=== PATIENT | male | born 1975 | race Caucasian/White ===

== ENCOUNTER → 2023-04-15 | Outpatient (CLI) | payer BC ==
[2023-04-15 12:40] LABS: CHOLESTEROL 159 mg/dL (<200); HDL CHOLESTEROL 57 mg/dL (29-71); LDL DIRECT 84 mg/dL (0-99); TRIGLYCERIDES 210 mg/dL (30-200)
== END | disposition home or self-care (01) ==
LOC: SHCH 10:40
PROVIDERS: ATTEND Student in an Organized Health Care Education/Training Program
DX: E78.5 Hyperlipidemia, unspecified (principal)
CPT/HCPCS: 36415; 80061; 93306

== ENCOUNTER → 2023-08-15 | Outpatient (CLI) | payer BC ==
[~2023-08-15] MED LIST: IOHEXOL 350 MG/ML 100ML INFUS..BTL IV ONE; METOPROLOL TARTRATE 1 MG/ML 5ML VIAL IV ONE
== END | disposition home or self-care (01) ==
LOC: RAH 07:40
PROVIDERS: ATTEND Student in an Organized Health Care Education/Training Program
DX: I50.9 Heart failure, unspecified (principal)
CPT/HCPCS: 75574; J3490; Q9967

== ENCOUNTER 2023-10-29 06:04 | Day surgery (SDC) | payer BC ==
[2023-10-25 08:44] LABS: BASOPHILS # (AUTO) 0.02 K/uL (0.00-0.20); BASOPHILS % (AUTO) 0.4 % (0.0-5.0); EOSINOPHILS % (AUTO) 5.9 % (0.0-8.0); HEMATOCRIT 44.8 % (42-54); IMMATURE GRANULOCYTE ABSOLUTE 0.01 K/uL (0-1); LYMPHOCYTES # (AUTO) 1.5 K/uL (1.0-4.8); LYMPHOCYTES % (AUTO) 30.2 % (21.0-51.0); MEAN CORPUSCULAR HEMOGLOBIN 30.5 pg (27.0-33.0); MEAN CORPUSCULAR VOLUME 92.4 fL (79-99); MONOCYTES # (AUTO) 0.6 K/uL (0.1-1.0); MONOCYTES % (AUTO) 11.9 % (3.0-13.0); NEUTROPHILS # (AUTO) 2.6 K/uL (1.8-7.7); NEUTROPHILS % (AUTO) 51.4 % (40.0-77.0); PLATELET COUNT (AUTO) 191 K/uL (130-400); RED BLOOD CELL COUNT(AUTO) 4.85 MIL/uL (4.50-6.20); RED CELL DISTRIBUTION WIDTH 12.9 % (11.0-15.5); WHITE BLOOD COUNT (AUTO) 5.1 K/uL (4.8-10.8)
[2023-10-25 08:58] LABS: CREATININE 0.9 mg/dL (0.5-1.3); POTASSIUM 4.4 mmol/L (3.5-5.1)
[2023-10-25 09:02] LABS: INR <= 0.93 (0.85-1.15); PROTHROMBIN TIME 10.8 SEC (9.6-11.6)
[2023-10-25 09:04] LABS: PARTIAL THROMBOPLASTIN TIME 28.2 SEC (26.3-35.5)
[2023-10-25 09:06] VITALS: BP 128/82; PULSE 69; RESP 18
[2023-10-25 09:19] LABS: B-TYPE NATRIURETIC PEPTIDE < 5 pg/mL (0-100)
[~2023-10-29] VITALS: Ht 180.3 cm; Wt 88.4 kg
[2023-10-29] VITALS (10 sets, daily range): BP systolic 103–144; BP diastolic 62–88; PULSE 80–93; RESP 15–19
[~2023-10-29 06:04] MED LIST changes: +ASPI-1005 PO; +EMPA25TA PO; +ICOS1CAP PO; +INSU300I SQ; -IOHEXOL 350 MG/ML 100ML INFUS..BTL IV ONE; -METOPROLOL TARTRATE 1 MG/ML 5ML VIAL IV ONE; +ROSU40TA70 PO; +SACU1TAB PO; +TIRZ10PE SQ; +mvi PO
[2023-10-29] MEDS: 0.9%NACL 1000ML 1,000 ML IV ONE (06:59)
[2023-10-29] MEDS ORDERED: VERAPAMIL HCL 2.5 MG/ML VIAL ONE (07:28)
[2023-10-29] MEDS ORDERED: LIDOCAINE HCL 400MG/20ML VIAL ONE (07:28)
[2023-10-29] MEDS ORDERED: HEPARIN 10,000 UNIT/10ML (1,000 UNIT/ML) VIAL ONE (07:28)
[2023-10-29] MEDS ORDERED: MIDAZOLAM HCL 1 MG/ML 2ML VIAL ONE ×3 (07:28→08:05)
[2023-10-29] MEDS ORDERED: FENTANYL CITRATE PF 50 MCG/1 ML 2ML VIAL ONE (07:28)
[2023-10-29] MEDS ORDERED: NITROGLYCERIN 50MG VIAL ONE (07:28)
[2023-10-29] MEDS ORDERED: IOHEXOL-350 75 ML VIAL IV ONE (07:30)
[2023-10-29] MEDS ORDERED: IOHEXOL-350 50ML VIAL IV ONE (08:10)
[2023-10-29] MEDS ORDERED: DEXTROSE 50%-WATER 50 ML DISP.SYRIN IV PRN (09:00)
[2023-10-29] MEDS ORDERED: 0.9% NACL 500ML IV.SOLN 500 ML IV SCH (09:00)
[2023-10-29] MEDS ORDERED: GLUCAGON 1MG KIT 1 MG ML IM PRN (09:00)
== END 2023-10-29 13:10 | disposition home or self-care (01) ==
LOC: DAH 06:04
PROVIDERS: ATTEND Student in an Organized Health Care Education/Training Program
DX: I25.10 Atherosclerotic heart disease of native coronary artery without angina pectoris (principal); I11.0 Hypertensive heart disease with heart failure; I50.32 Chronic diastolic (congestive) heart failure; E11.8 Type 2 diabetes mellitus with unspecified complications; E78.5 Hyperlipidemia, unspecified; Z82.49 Family history of ischemic heart disease and other diseases of the circulatory system; Z83.3 Family history of diabetes mellitus; Z79.82 Long term (current) use of aspirin; Z79.01 Long term (current) use of anticoagulants
CPT/HCPCS: 80048; 83880; 85025; 85610; 85730; 36415; 71045; 93005; 93458; 82948; C1769; C1894; A4649; J3010; J3490 ×3; J7030; J1644 ×2; J2250 ×3; Q9967 ×2; A4215; A4222; A4221; A4663; A4216; A4606; Q9965; A4223 ×3; 96360; 96361; 99156; 99157

== ENCOUNTER 2024-04-15 11:26 | Inpatient (IN) | payer BC ==
[~2024-04-15] VITALS: Ht 205.7 cm; Wt 86.2 kg
[~2024-04-15 11:26] MED LIST changes: -ROSU40TA70 PO; +ROSU40TA88 PO
[2024-04-15 11:30] VITALS: BP 151/112; PULSE 89; RESP 18; TEMP 98.9
[2024-04-15 11:45] VITALS: O2SAT 98
--- NOTE | 2024-04-15 11:45 | NUR ---
PT ARRIVED FROM [facility] VIA STRECTHER BY PARAMEDICS. PT AAOX3. NO DISTRESS NOTED. VITALS CHARTED. NO CHEST PAIN AT THE MOMENT. VILATERAL AC 18 G IV PRESENT, RUNNING HEPARIN DRIP AT 11UNITS/KG/HR. DR. HUNT HAS BEEN MADE AWARE OF PTS ARRIVAL. NO ORDERS PRESENT AT THIS TIME. PENDING CALL BACK FROM
[2024-04-15] MEDS: metoPROLOL tartRATE 25 MG TAB PO STA (12:52)
[2024-04-15 13:00] LABS: BASOPHILS # (AUTO) 0.01 K/uL (0.00-0.20); BASOPHILS % (AUTO) 0.2 % (0.0-5.0); EOSINOPHILS # (AUTO) 0.05 K/uL (0.00-0.70); EOSINOPHILS % (AUTO) 0.9 % (0.0-8.0); HEMATOCRIT 42.1 % (42-54); IMMATURE GRANULOCYTE ABSOLUTE 0.02 K/uL (0-1); LYMPHOCYTES # (AUTO) 1.4 K/uL (1.0-4.8); LYMPHOCYTES % (AUTO) 24.9 % (21.0-51.0); MEAN CORPUSCULAR HEMOGLOBIN 31.6 pg (27.0-33.0); MEAN CORPUSCULAR VOLUME 92.9 fL (79-99); MONOCYTES # (AUTO) 0.4 K/uL (0.1-1.0); MONOCYTES % (AUTO) 7.5 % (3.0-13.0); NEUTROPHILS # (AUTO) 3.6 K/uL (1.8-7.7); NEUTROPHILS % (AUTO) 66.1 % (40.0-77.0); PLATELET COUNT (AUTO) 160 K/uL (130-400); RED BLOOD CELL COUNT(AUTO) 4.53 MIL/uL (4.50-6.20); RED CELL DISTRIBUTION WIDTH 13.1 % (11.0-15.5); WHITE BLOOD COUNT (AUTO) 5.5 K/uL (4.8-10.8)
[2024-04-15 13:09] LABS: INR 1.02 (0.85-1.15)
[2024-04-15 13:11] LABS: PARTIAL THROMBOPLASTIN TIME 47.7 SEC (26.3-35.5)
[2024-04-15 13:15] LABS: ALBUMIN 3.5 g/dL (3.5-5.0); BILIRUBIN,TOTAL 0.7 mg/dL (0.2-1.0); CREATININE 0.8 mg/dL (0.5-1.3); POTASSIUM 3.7 mmol/L (3.5-5.1); TOTAL PROTEIN, SERUM 6.9 g/dL (6.0-8.3)
--- NOTE | 2024-04-15 13:35 | NUR ---
dr. brito made aware of consult, no new orders at this time.
[2024-04-15] MEDS ORDERED: MAGNESIUM 2GM PREMIX 50ML 50 ML IV SCH (14:00)
[2024-04-15] MEDS ORDERED: HEParin 5,000 UNIT VIAL IV PRN (14:00)
[2024-04-15] MEDS ORDERED: hydrALAZine 20MG/ML VIAL IV PRN (14:00)
[2024-04-15] MEDS ORDERED: PoTASSium chl 10% ELIXIR 20MEQ 20 MEQ/15 ML UDCUP PO PRN (14:00)
[2024-04-15] MEDS ORDERED: PoTASSium chloRIDE 20MEQ/100ML 100 ML IV PRN (14:00)
[2024-04-15] MEDS: ASPIRIN 81MG CHEW TAB PO SCH (14:14)
[2024-04-15] MEDS: PoTASSium chloRIDE 20MEQ ER 20 MEQ ERTAB PO PRN (14:14)
[2024-04-15] MEDS: HEParin 25,000 UNITS/250ML D5W 250 ML IV SCH (14:14)
[2024-04-15] MEDS: cloPIDOgrel 75MG TAB PO SCH (14:15)
[2024-04-15] MEDS ORDERED: IOHEXOL 350 MG/ML 100ML INFUS..BTL IV ONE (14:15)
--- NOTE | 2024-04-15 14:18 | NUR ---
consent for ct angio collected at this time. consent in chart. all questions answered.
[2024-04-15 14:20] LABS: HEMOGLOBIN A1C 6.3 % (4.0-6.0)
[2024-04-15 14:26] LABS: THYROID STIMULATING HORMONE 0.78 uIU/mL (0.36-3.74)
[2024-04-15] MEDS ORDERED: metoPROLOL tartRATE 1 MG/ML 5ML VIAL IV ONE (14:36)
[2024-04-15] MEDS ORDERED: ALBUMIN (HUMAN) 25% 50 ML IV ONE (14:50)
--- NOTE | 2024-04-15 15:21 | HMCIMG ---
CT CARDIAC ANGIO W/CONT. CCTA REASON: CAD, RCA anomolous takeoff COMPARISON: None TECHNIQUE: Images are obtained through the heart in the axial plane before and during bolus IV contrast infusion, 100 cc Omnipaque 350. 2-D and 3-D multiplanar reconstruction images were then performed. The injection had to be repeated once due to motion artifact on the first sequence, total contrast volume was 200 cc. FINDINGS: This dictation is for the noncardiac findings only. Cardiac and coronary artery findings are reported separately. Visualized portions of the lungs are clear. There is normal-appearing pulmonary interstitium. There is no hilar or mediastinal lymphadenopathy. Chest wall structures appear unremarkable. IMPRESSION: 1. Unremarkable noncardiac portions of CT cardiac angiography.
[2024-04-15 16:00] VITALS: BP 121/76; PULSE 83; RESP 20; TEMP 98
--- NOTE | 2024-04-15 16:00 | NUR ---
PT ASKED TO BRING HOME MEDICATIONS FOR RECONCILIATION.
[2024-04-15] MEDS: INSULIN humuLIN R 100 UNIT/ML 3ML SQ SCH (16:30)
--- NOTE | 2024-04-15 16:53 | HP ---
[facility] HISTORY AND PHYSICAL Date of Service: Apr 15, 2024 Time of Service: 16:46 HISTORY OF PRESENT ILLNESS: Date of service: 04/15/2024, patient was seen in room 227 49-year-old male with history of type 2 diabetes mellitus, hypertension, hyperlipidemia, underlying coronary artery disease who presented as a transfer from [facility]. Patient had initially presented to [facility] and [facility] with complaints of severe chest pain 8/10 in intensity. In the [facility], patient was found to have STEMI involving the inferior lead. He was given aspirin and TNK in the emergency room. He was subsequently transferred to [facility] yesterday for further management of STEMI. Patient states that he subsequently underwent cardiac catheterization by Dr. Casanova. Patient denies undergoing angioplasty or stenting during cardiac cath and RCA could not be engaged during the procedure. Patient has been transferred to [facility] for coronary CT angiogram to further delineate the RCA an atomy. Patient has previously undergone cardiac catheterization in October/2023 where he was found to have high anterior takeoff of the RCA with 30-40 % proximal RCA stenosis and 40-50% distal RCA stenosis and 50-60% stenosis of the PDA. Patient on presentation to [facility] was noted to be afebrile and hemodynamically stable. Patient denies active chest pain. Plan is to obtain cardiac CT angio later today. We will follow up with this patient post CT. REVIEW OF SYSTEMS CONSTITUTIONAL: Denies fevers, chills, or night sweats. No unintentional weight loss reported. NEUROLOGICAL: Denies headache, amaurosis fugax, motor weakness, sensory deficit, vertigo/spinning sensation, gait abnormalities, or tremors. ENT: No hearing loss, otalgia, otorrhea, rhinitis, rhinorrhea, hoarseness, or sore throat. CARDIOVASCULAR: Denies any exertional angina, dyspnea on exertion, orthopnea, paroxysmal nocturnal dyspnea, palpitations, life-threatening arrhythmias, claudication. PULMONARY: Denies any shortness of breath, cough, phlegm/sputum, hemoptysis, pleuritic chest pain. SLEEP: Denies morning headaches, daytime somnolence or napping. Denies difficulty falling asleep, staying asleep, waking from sleep. Denies knowledge of snoring. GASTROINTESTINAL: Denies any type of dysphagia to either liquids or solids. Denies nausea, vomiting, pyrosis, early satiety, abdominal pain, diarrhea, constipation, or changes in stool consistency or caliber. Denies coffee-ground emesis, hematemesis, hematochezia, or melanotic stools. GENITOURINARY: Denies frequency, urgency, nocturia, hematuria or incontinence (Storage/Irritative symptoms.) Low urinary stream, straining to void, urinary intermittency or hesitancy, splitting of the voiding stream, terminal dribbling. ENDOCRINOLOGIC: Denies polyuria, polydipsia, polyphagia or heat/cold intolerances. HEMATOLOGIC: Denies thrombophilia/previous clots, or coagulopathy/bleeding disorders. ONCOLOGIC: Denies personal history of malignancy. DERMATOLOGIC: Denies rashes or pruritus. PSYCHIATRIC: Denies any suicidal or homicidal ideation. Denies hallucinations. 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 FAMILY HISTORY: Reports family history of premature coronary artery disease with father having VA at the age of 41 Allergies: Patient has allergic reaction to avocado, banana, clindamycin, latex, metformin, suxamethonium, Watermelon Coded Allergies: avocado (Unverified Allergy, Severe, edema of neck, 04/15/24) banana (Unverified Allergy, Severe, ANAPHYLAXIS, 04/15/24) clindamycin (Unverified Allergy, Severe, ANAPHYLAXIS, 04/15/24) latex (Unverified Allergy, Severe, ANAPHYLAXIS, 04/15/24) watermelon (Unverified Allergy, Severe, ANAPHYLAXIS, 04/15/24) metformin (Unverified Adverse Reaction, Unknown, loose stool, 04/15/24) Uncoded Allergies: suxamethonium (Adverse Reaction, Unknown, 10/25/23) PHYSICAL EXAM GENERAL APPEARANCE: The patient is awake, alert, and oriented, in no acute cardiopulmonary distress. NEUROLOGICAL: Cranial nerves II-XII grossly intact. Motor is 5/5 in bilateral upper and lower extremities proximal to distal. No sensory deficits. HEENT: Face is symmetric. Pupils are equal and reactive. Extraocular movements are intact. NECK: Supple. No JVD. No thyromegaly. No submental, submandibular, pre- /postauricular, occipital or supraclavicular lymphadenopathy. CHEST: Normal chest expansion. No Telemetry. LUNGS: Absence of any rales, rhonchi or any wheezing. CARDIOVASCULAR: Regular. S1 and S2 normal. No appreciable rubs, murmurs or gallops. ABDOMEN: Soft, nontender, and nondistended. There is no rebound, voluntary guarding, or rigidity. : Deferred. No [place]. EXTREMITIES: Non-edematous and not cyanotic. No clubbing. Good capillary refill. SKIN: No skin breakdown. Vital Sign (Last 24 Hours) 04/15/24 04/15/24 11:30 11:45 Temp 99.0 Pulse 89 Resp 18 B/P (MAP) 151/112 Pulse Ox 98 O2 Delivery Room Air* O2 Flow Rate 0 FiO2 21 LABS: Laboratory: Test 04/15/24 16:23 04/15/24 12:55 Range/Units Whole Blood Glucose 92 70-110 MG/DL White Blood Count 5.5 4.8-10.8 K/uL Red Blood Count 4.53 4.50-6.20 MIL/uL Hemoglobin 14.3 14.0-18.0 g/dL Hematocrit 42.1 42-54 % Mean Corpuscular Volume 92.9 79-99 fL Mean Corpuscular Hemoglobin 31.6 27.0-33.0 pg Mean Corpuscular Hemoglobin Concent 34.0 32.0-36.0 g/dL Red Cell Distribution Width 13.1 11.0-15.5 % Platelet Count 160 130-400 K/uL Mean Platelet Volume 8.9 7.5-10.5 fL Immature Granulocyte % (Auto) 0.4 0-1 % Neutrophils (%) (Auto) 66.1 40.0-77.0 % Lymphocytes (%) (Auto) 24.9 21.0-51.0 % Monocytes (%) (Auto) 7.5 3.0-13.0 % Eosinophils (%) (Auto) 0.9 0.0-8.0 % Basophils (%) (Auto) 0.2 0.0-5.0 % Neutrophils # (Auto) 3.6 1.8-7.7 K/uL Lymphocytes # (Auto) 1.4 1.0-4.8 K/uL Monocytes # (Auto) 0.4 0.1-1.0 K/uL Eosinophils # (Auto) 0.05 0.00-0.70 K/uL Basophils # (Auto) 0.01 0.00-0.20 K/uL Absolute Immature Granulocyte (auto 0.02 0-1 K/uL Nucleated Red Blood Cells 0.0 0.0-0.19 % Prothrombin Time 11.0 9.6-11.6 SEC Prothromb Time International Ratio 1.02 0.85-1.15 Activated Partial Thromboplast Time 47.7 H 26.3-35.5 SEC Sodium Level 133 L 136-145 mmol/L Potassium Level 3.7 3.5-5.1 mmol/L Chloride Level 101 101-111 mmol/L Carbon Dioxide Level 23 21-32 mmol/L Blood Urea Nitrogen 20 H 7-18 mg/dL Creatinine 0.8 0.5-1.3 mg/dL Glomerular Filtration Rate Calc 108 >90 mL/min Random Glucose 86 70-105 mg/dL Hemoglobin A1c 6.3 H 4.0-6.0 % Estimated Average Glucose (eAG) 134 H 70-126 mg/dL Total Calcium 8.5 8.5-10.1 mg/dL Magnesium Level 2.00 1.80-2.40 mg/dL Total Bilirubin 0.7 0.2-1.0 mg/dL Aspartate Amino Transf (AST/SGOT) 20 10-37 U/L Alanine Aminotransferase (ALT/SGPT) 30 12-78 U/L Alkaline Phosphatase 75 50-136 U/L Total Protein 6.9 6.0-8.3 g/dL Albumin 3.5 3.5-5.0 g/dL Triglycerides Level 108 30-200 mg/dL Cholesterol Level 152 <200 mg/dL LDL Cholesterol 73 0-99 mg/dL HDL Cholesterol 62 29-71 mg/dL Thyroid Stimulating Hormone (TSH) 0.78 0.36-3.74 uIU/mL Current Medications Medications (Trade) Dose Ordered Sig/Wes Route PRN Reason Start Time Stop Time Status Last Admin Dose Admin Aspirin (Aspirin 81mg Chew Tab) 81 mg DAILY PO 04/15/24 14:00 05/15/24 13:59 04/15/24 14:14 81 MG Atorvastatin Calcium (LIPItor 40MG) 40 mg HS PO 04/15/24 21:00 05/15/24 20:59 Clopidogrel Bisulfate (plaVIX 75MG) 75 mg DAILY PO 04/15/24 14:00 05/15/24 13:59 04/15/24 14:15 75 MG Famotidine (Pepcid 20mg Tab) 20 mg BID PO 04/15/24 21:00 05/15/24 20:59 Heparin Sodium (Porcine) (HEParin 5,000 UNIT VIAL) *calculation based on ACTUAL B... AD PRN IV HEPARIN PROTOCOL 04/15/24 14:00 05/15/24 13:59 Heparin Sodium/ Dextrose 250 ml @ 0 mls/hr Q6H IV 04/15/24 14:00 05/15/24 13:59 04/15/24 14:14 9.02 MLS/HR Hydralazine HCl (APRESOLine 20MG INJ) 10 mg Q6H PRN IV ADMINISTER FOR SBP > 160 04/15/24 14:00 05/15/24 13:59 Insulin Human Regular (humuLIN R 100 UNIT/ML 3ML) INSULIN SLIDING SCAL... ACHS SQ 04/15/24 16:30 05/15/24 16:29 Magnesium Sulfate 50 ml @ 0 mls/hr PROTOCOL IV 04/15/24 14:00 05/15/24 13:59 Metoprolol Tartrate (loprESSOR) 25 mg ONCE STAT PO 04/15/24 12:43 04/15/24 12:46 DC 04/15/24 12:52 25 MG Potassium Chloride 100 ml @ 100 mls/hr AD PRN IV POTASSIUM PROTOCOL 04/15/24 14:00 05/15/24 13:59 Potassium Chloride (K-Dur/Klor-Con 20meq) 20 meq AD PRN PO POTASSIUM PROTOCOL 04/15/24 14:00 05/15/24 13:59 04/15/24 14:14 20 MEQ Potassium Chloride (KCl 10% Elixir 20meq/15ml) 20 meq AD PRN PO POTASSIUM PROTOCOL 04/15/24 14:00 05/15/24 13:59 Sacubitril/ Valsartan (Entresto 24 Mg-26 Mg Tablet) 1 each BID PO 04/15/24 21:00 05/15/24 20:59 DIAGNOSTICS / RADIOLOGY: CT coronary angiography is pending ASSESSMENT: Acute Inferior wall acute STEMI, status post TNKase, 04/13/2024, POA Underlying history of coronary artery disease, POA Family history of premature coronary artery disease, POA Type 2 diabetes mellitus, POA Hypertension, POA Hyperlipidemia, POA PLAN: Patient will continue with care in cardiac telemetry floor We will follow up results of coronary CT to assess for any significant RCA isidoro nosis, obtain cardiac cath report to assess degree of LAD stenosis from [facility] which was done yesterday Continue with dual antiplatelet therapy with aspirin and Plavix and heparin infusion Continue with Lipitor, we will restart patient back on Entresto We will obtain home medication list, reconciled and update once available Patient reports having a 2D echocardiogram done in [facility] earlier today, we will follow up echo report Continue with statin therapy with Lipitor 40 mg daily Sliding scale insulin a.c. and HS and basal Lantus based on blood glucose trend tonight, we will check a A1c All labs will be repeated in the morning GI prophylaxis with Pepcid, DVT prophylaxis with heparin Date of service: 04/15/2024 Plan of care was discussed with patient at bedside, Everett Cervantes MD Advanced Care Planning: Which of the following were discussed: Hospice care: Yes __ No _X_ Therapeutic options: Yes _X_ No __ Advance directives: Yes _X_ No __ Other discussions: Discussed with who?: Patient Voluntary nature of this service was explained to the patient? Yes _x_ No __ Amount of time spent: 20 minutes EVERETT CERVANTES MD Apr 15, 2024 16:53
--- NOTE | 2024-04-15 18:26 | CARDIOLOGY ---
RAD REPORT: [facility] CT ANGIO RADIOLOGY REPORT: CORONARY CT ANGIOGRAPHY DATE: Apr 15, 2024 QUALITY: Excellent CLINICAL HISTORY AND INDICATION: [ Inferior STEMI s/p lytics ] TECHNIQUE: After obtaining a preliminary senior advocate image, contrast imaging performed on an [employer] [id number] scanner. A dedicated, limited window, coronary imaging protocol was used, with single breath-hold, retrospective ECG gating, and automated arrhythmia rejection. 100 cc of low osmolar contrast agent: Omnipaque 350 was delivered via a 18-gauge IV catheter in the right antecubital fossa, using a power injector and followed by 60 cc of normal saline bolus as a chaser. Collimated images were reformatted at 0.5 mm intervals, and sent to an offline independent workstation for interpretation, using 3D anatomic reconstructions: Curved multiplanar reconstructions, maximum intensity projections, and multiplanar imaging. 15 mg IV metoprolol was administered prior to scanning. No SL nitroglycerin was given. 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 Left main coronary artery: Normal caliber vessel that bifurcates into the LAD and LCx. No stenosis. Left anterior descending coronary artery: Normal caliber vessel and gives rise to diagonal and septal branches. There is mixed calcified and noncalcified plaque in the proximal LAD with 40-50% stenosis. There is mixed calcified and noncalcified plaque in the mid LAD with 50-60% stenosis. There is mixed calcified and noncalcified plaque in the mid LAD with 50-60% stenosis.There is mixed calcified and noncalcified plaque in the distal LAD with 50% stenosis. Left circumflex coronary artery: Normal caliber, nondominant and gives rise to a large OM branch. No stenosis. Right coronary artery: Large, dominant vessel giving rise to the PL and PDA branches. HR spike during scan therefore luminal stenosis is not able to be quantitated. Thoracic Aorta: Normal in diameter. Salud Crocker MD Cardiovascular Disease [facility] SALUD CROCKER MD Apr 15, 2024 18:26
--- NOTE | 2024-04-15 18:42 | PN ---
[facility] CARDIOLOGY PROGRESS NOTE Date Patient Seen: Apr 15, 2024 Time of Visit: 18:28 Interval History: [ Patient was transferred from [facility] for CCTA to identify malignant course of RCA. Patient initially presented to [place] with chest pain after sneezing that was 10/10. He was given lytics for inferior STEMI and transferred to on 04/13. Dr. Can performed cardiac catheterization on 04/14 and the RCA was non selectively engaged due to poor catheter engagement. The RCA was found to be ] Physical Examination: GENERAL: [No acute distress.] HEAD: [Normal with no signs of head trauma.] EYES: [PERRLA, EOMI, conjunctiva and sclera normal.] ENT: [Hearing grossly intact, normal oropharynx.] NECK: [Supple without JVD. There is no tenderness, lymphadenopathy, or masses. No thyromegaly. Normal carotid upstrokes without bruits.] LUNGS: [Clear breath sounds bilaterally. There are right basilar rales one third of the way up the chest. No wheezes, or rhonchi.] HEART: [Normal rate and rhythm. Normal S1 and S2 without mumurs, gallop or rub.] VASC: [Peripheral pulses +2 bilaterally.] ABD: [Bowel sounds normal, soft, nontender, no masses, no organomegaly. No audible bruits.] : [Not examined] LYMPH: [No lymphadenopathy noted.] EXT: [No clubbing, cyanosis or edema.] SKIN: [No rashes or lesions noted.] NEURO: [Awake, alert, and oriented x3. No focal sensory or strength deficits noted.] Laboratory: [ ] Hematology Labs: Test 04/15/24 12:55 Range/Units White Blood Count 5.5 4.8-10.8 K/uL Red Blood Count 4.53 4.50-6.20 MIL/uL Hemoglobin 14.3 14.0-18.0 g/dL Hematocrit 42.1 42-54 % Mean Corpuscular Volume 92.9 79-99 fL Mean Corpuscular Hemoglobin 31.6 27.0-33.0 pg Mean Corpuscular Hemoglobin Concent 34.0 32.0-36.0 g/dL Red Cell Distribution Width 13.1 11.0-15.5 % Platelet Count 160 130-400 K/uL Mean Platelet Volume 8.9 7.5-10.5 fL Immature Granulocyte % (Auto) 0.4 0-1 % Neutrophils (%) (Auto) 66.1 40.0-77.0 % Lymphocytes (%) (Auto) 24.9 21.0-51.0 % Monocytes (%) (Auto) 7.5 3.0-13.0 % Eosinophils (%) (Auto) 0.9 0.0-8.0 % Basophils (%) (Auto) 0.2 0.0-5.0 % Neutrophils # (Auto) 3.6 1.8-7.7 K/uL Lymphocytes # (Auto) 1.4 1.0-4.8 K/uL Monocytes # (Auto) 0.4 0.1-1.0 K/uL Eosinophils # (Auto) 0.05 0.00-0.70 K/uL Basophils # (Auto) 0.01 0.00-0.20 K/uL Absolute Immature Granulocyte (auto 0.02 0-1 K/uL Nucleated Red Blood Cells 0.0 0.0-0.19 % Chemistry Labs: Test 04/15/24 16:23 04/15/24 12:55 Range/Units Whole Blood Glucose 92 70-110 MG/DL Sodium Level 133 L 136-145 mmol/L Potassium Level 3.7 3.5-5.1 mmol/L Chloride Level 101 101-111 mmol/L Carbon Dioxide Level 23 21-32 mmol/L Blood Urea Nitrogen 20 H 7-18 mg/dL Creatinine 0.8 0.5-1.3 mg/dL Glomerular Filtration Rate Calc 108 >90 mL/min Random Glucose 86 70-105 mg/dL Hemoglobin A1c 6.3 H 4.0-6.0 % Estimated Average Glucose (eAG) 134 H 70-126 mg/dL Total Calcium 8.5 8.5-10.1 mg/dL Magnesium Level 2.00 1.80-2.40 mg/dL Total Bilirubin 0.7 0.2-1.0 mg/dL Aspartate Amino Transf (AST/SGOT) 20 10-37 U/L Alanine Aminotransferase (ALT/SGPT) 30 12-78 U/L Alkaline Phosphatase 75 50-136 U/L Total Protein 6.9 6.0-8.3 g/dL Albumin 3.5 3.5-5.0 g/dL Triglycerides Level 108 30-200 mg/dL Cholesterol Level 152 <200 mg/dL LDL Cholesterol 73 0-99 mg/dL HDL Cholesterol 62 29-71 mg/dL Thyroid Stimulating Hormone (TSH) 0.78 0.36-3.74 uIU/mL Coagulation Labs: Test 04/15/24 12:55 Range/Units Prothrombin Time 11.0 9.6-11.6 SEC Prothromb Time International Ratio 1.02 0.85-1.15 Activated Partial Thromboplast Time 47.7 H 26.3-35.5 SEC Diagnostics / Radiology: [Copy/Paste Echos/Imaging Report here] Impression and Plan: [ Acute Inferior wall acute STEMI, status post TNKase, 04/13/2024, POA Underlying history of coronary artery disease, POA Family history of premature coronary artery disease, POA Type 2 diabetes mellitus, POA Hypertension, POA Hyperlipidemia, POA PLAN: #Inferior STEMI s/p TNK - cardiac telemetry floor -Due to abrupt spike in heart rate during CCTA, not able to provide luminal stenosis information, however, the RCA arises from the left coronary cusp and lies in a malignant course between pulmonary artery and aorta -held plavix for tomorrow, CV surgery consult ordered -Continue with aspirin and heparin infusion -Continue with Lipitor, we will restart patient back on Entresto once BP allows -2d echo at is normal Thank you for this consult. Salud Crocker MD ] SALUD CROCKER MD Apr 15, 2024 18:42
--- NOTE | 2024-04-15 18:46 | NUR ---
DR. HUNT HAS NOTIFIED DR. MIX OF NEW CONSULT. PENDING ANY NEW ORDERS FROM DR. MIX.
[2024-04-15 19:32] VITALS: BP 120/73; PULSE 79; RESP 18; TEMP 98
[2024-04-15 20:00] VITALS: O2SAT 95
[2024-04-15 20:01] LABS: INR 1.02 (0.85-1.15)
[2024-04-15 20:02] LABS: PARTIAL THROMBOPLASTIN TIME 45.2 SEC (26.3-35.5)
[2024-04-15] MEDS: FAMOTIDINE 20MG TAB PO SCH (20:11)
[2024-04-15] MEDS: SACUBITRIL/VALSARTAN 1 EACH TABLET PO SCH (20:11)
[2024-04-15] MEDS: atorVAStatin 40 MG TABLET PO SCH (20:11)
[2024-04-15] MEDS ORDERED: NITROGLYCERIN 0.4 MG SL TAB SL PRN (22:30)
[2024-04-16] VITALS (8 sets, daily range): BP systolic 100–120; BP diastolic 56–77; PULSE 72–95; RESP 17–19; TEMP 98–99.2; O2SAT 97
[2024-04-16] MEDS ORDERED: ERGO500093 PO (00:37)
[2024-04-16] MEDS ORDERED: ICOS1CAP PO (00:43)
--- NOTE | 2024-04-16 05:36 | EKG ---
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
[2024-04-16 07:29] LABS: BASOPHILS # (AUTO) 0.01 K/uL (0.00-0.20); BASOPHILS % (AUTO) 0.2 % (0.0-5.0); EOSINOPHILS # (AUTO) 0.09 K/uL (0.00-0.70); EOSINOPHILS % (AUTO) 1.8 % (0.0-8.0); HEMATOCRIT 42.1 % (42-54); IMMATURE GRANULOCYTE ABSOLUTE 0.02 K/uL (0-1); LYMPHOCYTES # (AUTO) 1.5 K/uL (1.0-4.8); LYMPHOCYTES % (AUTO) 29.3 % (21.0-51.0); MEAN CORPUSCULAR HEMOGLOBIN 30.9 pg (27.0-33.0); MEAN CORPUSCULAR HGB CONC 33.5 g/dL (32.0-36.0); MEAN CORPUSCULAR VOLUME 92.3 fL (79-99); MONOCYTES # (AUTO) 0.4 K/uL (0.1-1.0); MONOCYTES % (AUTO) 8.6 % (3.0-13.0); NEUTROPHILS % (AUTO) 59.7 % (40.0-77.0); PLATELET COUNT (AUTO) 165 K/uL (130-400); RED BLOOD CELL COUNT(AUTO) 4.56 MIL/uL (4.50-6.20); RED CELL DISTRIBUTION WIDTH 13.2 % (11.0-15.5)
[2024-04-16 07:43] LABS: ALBUMIN 3.5 g/dL (3.5-5.0); BILIRUBIN,TOTAL 0.5 mg/dL (0.2-1.0); CREATININE 0.8 mg/dL (0.5-1.3); POTASSIUM 4.1 mmol/L (3.5-5.1); TOTAL PROTEIN, SERUM 6.6 g/dL (6.0-8.3)
--- NOTE | 2024-04-16 09:32 | PN ---
[facility] Cardiology Progress Note PROBLEM LIST: Acute Inferior wall acute STEMI, status post TNKase, 04/13/2024, POA Status post LHC at [facility] by Dr. 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 Underlying history of coronary artery disease, POA Family history of premature coronary artery disease, POA Type 2 diabetes mellitus, A1c 6.3% Hypertension, POA Hyperlipidemia, POA INTERVAL HISTORY: [Patient offers no complaints today. No chest tightness or pressure, shortness or breath, palpitations or dizziness. Dr. Lincoln is planning for surgery tomorrow with unroofing of the RCA. Patient does not smoke. He does have diabetes, but his last A1c was below seven. Patient's father suffered three heart attacks in his 40s and in his early 50s.] PHYSICAL EXAMINATION: Vital Signs (Last 48hrs) Date Time Temp Pulse Resp B/P (MAP) Pulse Ox O2 Delivery O2 Flow Rate FiO2 04/16/24 07:00 99.1 95 19 120/76 97 Room Air 04/16/24 04:56 98.1 81 18 110/77 98 Room Air 04/16/24 00:48 98.6 72 18 109/67 98 Room Air 04/15/24 20:00 95 Room Air* 0 21 04/15/24 19:32 98.1 79 18 120/73 95 Room Air 04/15/24 16:00 98.1 83 20 121/76 98 Room Air 04/15/24 11:45 98 Room Air* 0 21 04/15/24 11:30 99.0 89 18 151/112 98 Room Air General: Resting comfortably, no acute distress. HEENT: Atraumatic. Hearing is intact. No facial asymmetry, nasal discharge, icterus or lid lag. Cardiovascular: Rhythm and rate regular. No murmur No edema. Respiratory: Lungs clear to the bases. No retractions, wheezes or rhonchi. Gastrointestinal: Benign, soft, nontender, nondistended. Extremities: No amputations. Range of motion is grossly normal. Right groin benign Neurology/Psychiatry: No tremors. Speech is clear. Alert and oriented x 3. Cooperative and pleasant. LABORATORY DATA: [ Laboratory Tests Test 04/15/24 12:55 04/15/24 16:23 04/15/24 19:20 04/15/24 19:34 White Blood Count 5.5 K/uL (4.8-10.8) Red Blood Count 4.53 MIL/uL (4.50-6.20) Hemoglobin 14.3 g/dL (14.0-18.0) Hematocrit 42.1 % (42-54) Mean Corpuscular Volume 92.9 fL (79-99) Mean Corpuscular Hemoglobin 31.6 pg (27.0-33.0) Mean Corpuscular Hemoglobin Concent 34.0 g/dL (32.0-36.0) Red Cell Distribution Width 13.1 % (11.0-15.5) Platelet Count 160 K/uL (130-400) Mean Platelet Volume 8.9 fL (7.5-10.5) Immature Granulocyte % (Auto) 0.4 % (0-1) Neutrophils (%) (Auto) 66.1 % (40.0-77.0) Lymphocytes (%) (Auto) 24.9 % (21.0-51.0) Monocytes (%) (Auto) 7.5 % (3.0-13.0) Eosinophils (%) (Auto) 0.9 % (0.0-8.0) Basophils (%) (Auto) 0.2 % (0.0-5.0) Neutrophils # (Auto) 3.6 K/uL (1.8-7.7) Lymphocytes # (Auto) 1.4 K/uL (1.0-4.8) Monocytes # (Auto) 0.4 K/uL (0.1-1.0) Eosinophils # (Auto) 0.05 K/uL (0.00-0.70) Basophils # (Auto) 0.01 K/uL (0.00-0.20) Absolute Immature Granulocyte (auto 0.02 K/uL (0-1) Nucleated Red Blood Cells 0.0 % (0.0-0.19) Prothrombin Time 11.0 SEC (9.6-11.6) 11.0 SEC (9.6-11.6) Prothromb Time International Ratio 1.02 (0.85-1.15) 1.02 (0.85-1.15) Activated Partial Thromboplast Time 47.7 SEC (26.3-35.5) H 45.2 SEC (26.3-35.5) H Sodium Level 133 mmol/L (136-145) L Potassium Level 3.7 mmol/L (3.5-5.1) Chloride Level 101 mmol/L (101-111) Carbon Dioxide Level 23 mmol/L (21-32) Blood Urea Nitrogen 20 mg/dL (7-18) H Creatinine 0.8 mg/dL (0.5-1.3) Glomerular Filtration Rate Calc 108 mL/min (>90) Random Glucose 86 mg/dL (70-105) Hemoglobin A1c 6.3 % (4.0-6.0) H Estimated Average Glucose (eAG) 134 mg/dL (70-126) H Total Calcium 8.5 mg/dL (8.5-10.1) Magnesium Level 2.00 mg/dL (1.80-2.40) Total Bilirubin 0.7 mg/dL (0.2-1.0) Aspartate Amino Transf (AST/SGOT) 20 U/L (10-37) Alanine Aminotransferase (ALT/SGPT) 30 U/L (12-78) Alkaline Phosphatase 75 U/L (50-136) Total Protein 6.9 g/dL (6.0-8.3) Albumin 3.5 g/dL (3.5-5.0) Triglycerides Level 108 mg/dL (30-200) Cholesterol Level 152 mg/dL (<200) LDL Cholesterol 73 mg/dL (0-99) HDL Cholesterol 62 mg/dL (29-71) Thyroid Stimulating Hormone (TSH) 0.78 uIU/mL (0.36-3.74) Whole Blood Glucose 92 MG/DL (70-110) 144 MG/DL (70-110) #H Test 04/16/24 01:00 04/16/24 05:38 04/16/24 07:14 Activated Partial Thromboplast Time 53.0 SEC (26.3-35.5) H 53.6 SEC (26.3-35.5) H Whole Blood Glucose 116 MG/DL (70-110) H White Blood Count 5.0 K/uL (4.8-10.8) Red Blood Count 4.56 MIL/uL (4.50-6.20) Hemoglobin 14.1 g/dL (14.0-18.0) Hematocrit 42.1 % (42-54) Mean Corpuscular Volume 92.3 fL (79-99) Mean Corpuscular Hemoglobin 30.9 pg (27.0-33.0) Mean Corpuscular Hemoglobin Concent 33.5 g/dL (32.0-36.0) Red Cell Distribution Width 13.2 % (11.0-15.5) Platelet Count 165 K/uL (130-400) Mean Platelet Volume 9.1 fL (7.5-10.5) Immature Granulocyte % (Auto) 0.4 % (0-1) Neutrophils (%) (Auto) 59.7 % (40.0-77.0) Lymphocytes (%) (Auto) 29.3 % (21.0-51.0) Monocytes (%) (Auto) 8.6 % (3.0-13.0) Eosinophils (%) (Auto) 1.8 % (0.0-8.0) Basophils (%) (Auto) 0.2 % (0.0-5.0) Neutrophils # (Auto) 3.0 K/uL (1.8-7.7) Lymphocytes # (Auto) 1.5 K/uL (1.0-4.8) Monocytes # (Auto) 0.4 K/uL (0.1-1.0) Eosinophils # (Auto) 0.09 K/uL (0.00-0.70) Basophils # (Auto) 0.01 K/uL (0.00-0.20) Absolute Immature Granulocyte (auto 0.02 K/uL (0-1) Nucleated Red Blood Cells 0.0 % (0.0-0.19) Sodium Level 138 mmol/L (136-145) Potassium Level 4.1 mmol/L (3.5-5.1) Chloride Level 103 mmol/L (101-111) Carbon Dioxide Level 26 mmol/L (21-32) Blood Urea Nitrogen 16 mg/dL (7-18) Creatinine 0.8 mg/dL (0.5-1.3) Glomerular Filtration Rate Calc 108 mL/min (>90) Random Glucose 99 mg/dL (70-105) Total Calcium 8.6 mg/dL (8.5-10.1) Magnesium Level 2.00 mg/dL (1.80-2.40) Total Bilirubin 0.5 mg/dL (0.2-1.0) # Aspartate Amino Transf (AST/SGOT) 15 U/L (10-37) Alanine Aminotransferase (ALT/SGPT) 23 U/L (12-78) # Alkaline Phosphatase 71 U/L (50-136) Total Protein 6.6 g/dL (6.0-8.3) Albumin 3.5 g/dL (3.5-5.0) ] RADIOLOGY: [CCTA, as above] PLAN: [Pending surgical revascularization. He is on aspirin, atorvastatin, Entresto . Start low-dose metoprolol. No doubt he had an echo at [facility]; we will try to obtain this.] ASHLEY MARTIN Apr 16, 2024 09:32
--- NOTE | 2024-04-16 11:35 | PN ---
[facility] PROGRESS NOTE Date of Service: Apr 16, 2024 Time of Service: : SUBJECTIVE: 04/16 patient seen at bedside, no acute events overnight. Patient has been evaluated by Cardiology and a coronary CTA was performed, they are recommending cardio vascular surgery recommendations. He is likely to be taken do surgery tomorrow, we will follow up with CV surgery. Vitals and labs are relatively unremarkable. REVIEW OF SYSTEMS 12 point review of systems negative unless noted in HPI PHYSICAL EXAM GENERAL APPEARANCE: The patient is awake, alert, and oriented, in no acute cardiopulmonary distress. NEUROLOGICAL: Cranial nerves II-XII grossly intact. Motor is 5/5 in bilateral upper and lower extremities proximal to distal. No sensory deficits. HEENT: Face is symmetric. Pupils are equal and reactive. Extraocular movements are intact. NECK: Supple. No JVD. No thyromegaly. No submental, submandibular, pre- /postauricular, occipital or supraclavicular lymphadenopathy. CHEST: Normal chest expansion. No Telemetry. LUNGS: Absence of any rales, rhonchi or any wheezing. CARDIOVASCULAR: Regular. S1 and S2 normal. No appreciable rubs, murmurs or gallops. ABDOMEN: Soft, nontender, and nondistended. There is no rebound, voluntary guarding, or rigidity. : Deferred. No [place]. EXTREMITIES: Non-edematous and not cyanotic. No clubbing. Good capillary refill. SKIN: No skin breakdown. Vital Signs (last 8hr) Date Time Temp Pulse Resp B/P (MAP) Pulse Ox O2 Delivery O2 Flow Rate FiO2 04/16/24 07:00 99.1 95 19 120/76 97 Room Air 04/16/24 04:56 98.1 81 18 110/77 98 Room Air LABS: Laboratory: Test 04/16/24 07:14 04/16/24 05:38 04/15/24 19:20 04/15/24 12:55 Range/Units White Blood Count 5.0 4.8-10.8 K/uL Red Blood Count 4.56 4.50-6.20 MIL/uL Hemoglobin 14.1 14.0-18.0 g/dL Hematocrit 42.1 42-54 % Mean Corpuscular Volume 92.3 79-99 fL Mean Corpuscular Hemoglobin 30.9 27.0-33.0 pg Mean Corpuscular Hemoglobin Concent 33.5 32.0-36.0 g/dL Red Cell Distribution Width 13.2 11.0-15.5 % Platelet Count 165 130-400 K/uL Mean Platelet Volume 9.1 7.5-10.5 fL Immature Granulocyte % (Auto) 0.4 0-1 % Neutrophils (%) (Auto) 59.7 40.0-77.0 % Lymphocytes (%) (Auto) 29.3 21.0-51.0 % Monocytes (%) (Auto) 8.6 3.0-13.0 % Eosinophils (%) (Auto) 1.8 0.0-8.0 % Basophils (%) (Auto) 0.2 0.0-5.0 % Neutrophils # (Auto) 3.0 1.8-7.7 K/uL Lymphocytes # (Auto) 1.5 1.0-4.8 K/uL Monocytes # (Auto) 0.4 0.1-1.0 K/uL Eosinophils # (Auto) 0.09 0.00-0.70 K/uL Basophils # (Auto) 0.01 0.00-0.20 K/uL Absolute Immature Granulocyte (auto 0.02 0-1 K/uL Nucleated Red Blood Cells 0.0 0.0-0.19 % Activated Partial Thromboplast Time 53.6 H 26.3-35.5 SEC Sodium Level 138 136-145 mmol/L Potassium Level 4.1 3.5-5.1 mmol/L Chloride Level 103 101-111 mmol/L Carbon Dioxide Level 26 21-32 mmol/L Blood Urea Nitrogen 16 7-18 mg/dL Creatinine 0.8 0.5-1.3 mg/dL Glomerular Filtration Rate Calc 108 >90 mL/min Random Glucose 99 70-105 mg/dL Total Calcium 8.6 8.5-10.1 mg/dL Magnesium Level 2.00 1.80-2.40 mg/dL Total Bilirubin 0.5 # 0.2-1.0 mg/dL Aspartate Amino Transf (AST/SGOT) 15 10-37 U/L Alanine Aminotransferase (ALT/SGPT) 23 # 12-78 U/L Alkaline Phosphatase 71 50-136 U/L Total Protein 6.6 6.0-8.3 g/dL Albumin 3.5 3.5-5.0 g/dL Whole Blood Glucose 116 H 70-110 MG/DL Prothrombin Time 11.0 9.6-11.6 SEC Prothromb Time International Ratio 1.02 0.85-1.15 Hemoglobin A1c 6.3 H 4.0-6.0 % Estimated Average Glucose (eAG) 134 H 70-126 mg/dL Triglycerides Level 108 30-200 mg/dL Cholesterol Level 152 <200 mg/dL LDL Cholesterol 73 0-99 mg/dL HDL Cholesterol 62 29-71 mg/dL Thyroid Stimulating Hormone (TSH) 0.78 0.36-3.74 uIU/mL Current Medications Medications (Trade) Dose Ordered Sig/Wes Route PRN Reason Start Time Stop Time Status Last Admin Dose Admin Aspirin (Aspirin 81mg Chew Tab) 81 mg DAILY PO 04/15/24 14:00 05/15/24 13:59 04/16/24 08:43 81 MG Atorvastatin Calcium (LIPItor 40MG) 40 mg HS PO 04/15/24 21:00 05/15/24 20:59 04/15/24 20:11 40 MG Clopidogrel Bisulfate (plaVIX 75MG) 75 mg DAILY PO 04/15/24 14:00 04/15/24 18:27 DC 04/15/24 14:15 75 MG Famotidine (Pepcid 20mg Tab) 20 mg BID PO 04/15/24 21:00 05/15/24 20:59 04/16/24 08:43 20 MG Heparin Sodium (Porcine) (HEParin 5,000 UNIT VIAL) *calculation based on ACTUAL B... AD PRN IV HEPARIN PROTOCOL 04/15/24 14:00 05/15/24 13:59 Heparin Sodium/ Dextrose 250 ml @ 0 mls/hr Q6H IV 04/15/24 14:00 05/15/24 13:59 04/15/24 14:14 9.02 MLS/HR Hydralazine HCl (APRESOLine 20MG INJ) 10 mg Q6H PRN IV ADMINISTER FOR SBP > 160 04/15/24 14:00 05/15/24 13:59 Insulin Human Regular (humuLIN R 100 UNIT/ML 3ML) INSULIN SLIDING SCAL... ACHS SQ 04/15/24 16:30 05/15/24 16:29 Magnesium Sulfate 50 ml @ 0 mls/hr PROTOCOL IV 04/15/24 14:00 05/15/24 13:59 Metoprolol Tartrate (loprESSOR) 12.5 mg BID PO 04/16/24 21:00 05/16/24 20:59 Metoprolol Tartrate (loprESSOR) 25 mg ONCE STAT PO 04/15/24 12:43 04/15/24 12:46 DC 04/15/24 12:52 25 MG Nitroglycerin (Nitrostat) 0.4 mg AD PRN SL CHEST PAIN 04/15/24 22:30 05/15/24 22:29 Potassium Chloride 100 ml @ 100 mls/hr AD PRN IV POTASSIUM PROTOCOL 04/15/24 14:00 05/15/24 13:59 Potassium Chloride (K-Dur/Klor-Con 20meq) 20 meq AD PRN PO POTASSIUM PROTOCOL 04/15/24 14:00 05/15/24 13:59 04/15/24 14:14 20 MEQ Potassium Chloride (KCl 10% Elixir 20meq/15ml) 20 meq AD PRN PO POTASSIUM PROTOCOL 04/15/24 14:00 05/15/24 13:59 Sacubitril/ Valsartan (Entresto 24 Mg-26 Mg Tablet) 1 each BID PO 04/15/24 21:00 05/15/24 20:59 04/16/24 08:44 1 EACH DIAGNOSTICS / RADIOLOGY: [ ] ASSESSMENT: Acute Inferior wall acute STEMI, status post TNKase, 04/13/2024, POA Underlying history of coronary artery disease, POA Family history of premature coronary artery disease, POA Type 2 diabetes mellitus, POA Hypertension, POA Hyperlipidemia, POA PLAN: Patient will continue with care in cardiac telemetry floor Pending CV surgery recommendations Continue with dual antiplatelet therapy with aspirin and Plavix and heparin infusion Continue with Lipitor, we will restart patient back on Entresto Continue with statin therapy with Lipitor 40 mg daily Sliding scale insulin a.c. and HS and basal Lantus based on blood glucose trend tonight, we will check a A1c All labs will be repeated in the morning GI prophylaxis with Pepcid, DVT prophylaxis with heparin Cardiology consult, appreciate recommendation Disposition: Pending CV surgery recommendations and possible surgical intervention LEVI AKERS MD Apr 16, 2024 11:35
--- NOTE | 2024-04-16 12:21 | CONS ---
SUBJECTIVE: The patient is a 49-year-old male with diabetes mellitus, hypertension, hyperlipidemia. The patient presented to a peripheral Emergency Room with chest pain and ruled in for non-ST elevation HI. The patient was given lytic therapy and transferred to [facility] in [place]. Upon arrival, the patient was chest pain free and EKG changes had resolved. He was taken to the label rewinder; however, his right coronary artery could not be engaged. 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 There appeared to be an intramural course to this. The patient also had an angiogram performed in October where the right coronary artery was engaged and did appear to have an anomalous ostium and the posterior descending artery at that time he had a 60% stenosis. The patient's anomalous right coronary artery was confirmed on another CT angiogram of the heart at [facility] where he now resides. OBJECTIVE: VITAL SIGNS: Reveal temperature 99.1, blood pressure is 120/76, pulse 95, respirations 19, oxygen saturations are 97% on room air. HEENT: Reveals normocephalic, atraumatic. He wears glasses. HEART: S1, S2 and regular. LUNGS: Unlabored at rest. ABDOMEN: Reveals positive bowel sounds. EXTREMITIES: Perfusion of his lower extremities appears adequate. LABORATORY DATA: His white cell count is 5000, hemoglobin is 14.1, BUN 16, creatinine 0.8. 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 We would recommend unroofing of the right coronary artery and a bypass to the posterior descending artery with a vein graft. TID: [id number] RECEIPT: [id number]
--- NOTE | 2024-04-16 14:54 | NUR ---
DCP: HOME Pt lives at home with Vera Muhammad [phone]. Pt working, active, drives, and independent. Pt uses no DME or in home care services. PCP is Cassi Persaud and uses NATTY Shultz for rx. Denies dc needs, going home at dc Addendum: 04/16/24 at 1455 by PIERCE DELGADO SS Amended: Links added.
[2024-04-16] MEDS: metoPROLOL tartRATE 25 MG TAB PO SCH (20:46)
[2024-04-17] VITALS (9 sets, daily range): BP systolic 93–111; BP diastolic 59–79; PULSE 78–89; RESP 16–18; TEMP 97.6–98.6; O2SAT 97–98
--- NOTE | 2024-04-17 11:19 | PN ---
[facility] PROGRESS NOTE Date of Service: Apr 17, 2024 Time of Service: 11:18 SUBJECTIVE: 04/16 patient seen at bedside, no acute events overnight. Patient has been evaluated by Cardiology and a coronary CTA was performed, they are recommending cardio vascular surgery recommendations. He is likely to be taken do surgery tomorrow, we will follow up with CV surgery. Vitals and labs are relatively unremarkable. 04/17 patient seen at bedside, no acute events overnight. Pending CABG with CV surgery today, we will follow up postprocedure. Vitals and labs are relatively unremarkable. REVIEW OF SYSTEMS 12 point review of systems negative unless noted in HPI PHYSICAL EXAM GENERAL APPEARANCE: The patient is awake, alert, and oriented, in no acute cardiopulmonary distress. NEUROLOGICAL: Cranial nerves II-XII grossly intact. Motor is 5/5 in bilateral upper and lower extremities proximal to distal. No sensory deficits. HEENT: Face is symmetric. Pupils are equal and reactive. Extraocular movements are intact. NECK: Supple. No JVD. No thyromegaly. No submental, submandibular, pre- /postauricular, occipital or supraclavicular lymphadenopathy. CHEST: Normal chest expansion. No Telemetry. LUNGS: Absence of any rales, rhonchi or any wheezing. CARDIOVASCULAR: Regular. S1 and S2 normal. No appreciable rubs, murmurs or gallops. ABDOMEN: Soft, nontender, and nondistended. There is no rebound, voluntary guarding, or rigidity. : Deferred. No [place]. EXTREMITIES: Non-edematous and not cyanotic. No clubbing. Good capillary refill. SKIN: No skin breakdown. Vital Signs (last 8hr) Date Time Temp Pulse Resp B/P (MAP) Pulse Ox O2 Delivery O2 Flow Rate FiO2 04/17/24 08:52 111/79 04/17/24 07:48 97.5 78 18 94/70 97 Room Air 04/17/24 07:30 97 Room Air* 0 21 04/17/24 04:13 98.1 83 18 111/73 99 LABS: Laboratory: Test 04/17/24 07:10 04/17/24 05:47 04/16/24 07:14 04/15/24 19:20 Range/Units Activated Partial Thromboplast Time 52.7 H 26.3-35.5 SEC Whole Blood Glucose 93 70-110 MG/DL White Blood Count 5.0 4.8-10.8 K/uL Red Blood Count 4.56 4.50-6.20 MIL/uL Hemoglobin 14.1 14.0-18.0 g/dL Hematocrit 42.1 42-54 % Mean Corpuscular Volume 92.3 79-99 fL Mean Corpuscular Hemoglobin 30.9 27.0-33.0 pg Mean Corpuscular Hemoglobin Concent 33.5 32.0-36.0 g/dL Red Cell Distribution Width 13.2 11.0-15.5 % Platelet Count 165 130-400 K/uL Mean Platelet Volume 9.1 7.5-10.5 fL Immature Granulocyte % (Auto) 0.4 0-1 % Neutrophils (%) (Auto) 59.7 40.0-77.0 % Lymphocytes (%) (Auto) 29.3 21.0-51.0 % Monocytes (%) (Auto) 8.6 3.0-13.0 % Eosinophils (%) (Auto) 1.8 0.0-8.0 % Basophils (%) (Auto) 0.2 0.0-5.0 % Neutrophils # (Auto) 3.0 1.8-7.7 K/uL Lymphocytes # (Auto) 1.5 1.0-4.8 K/uL Monocytes # (Auto) 0.4 0.1-1.0 K/uL Eosinophils # (Auto) 0.09 0.00-0.70 K/uL Basophils # (Auto) 0.01 0.00-0.20 K/uL Absolute Immature Granulocyte (auto 0.02 0-1 K/uL Nucleated Red Blood Cells 0.0 0.0-0.19 % Sodium Level 138 136-145 mmol/L Potassium Level 4.1 3.5-5.1 mmol/L Chloride Level 103 101-111 mmol/L Carbon Dioxide Level 26 21-32 mmol/L Blood Urea Nitrogen 16 7-18 mg/dL Creatinine 0.8 0.5-1.3 mg/dL Glomerular Filtration Rate Calc 108 >90 mL/min Random Glucose 99 70-105 mg/dL Total Calcium 8.6 8.5-10.1 mg/dL Magnesium Level 2.00 1.80-2.40 mg/dL Total Bilirubin 0.5 # 0.2-1.0 mg/dL Aspartate Amino Transf (AST/SGOT) 15 10-37 U/L Alanine Aminotransferase (ALT/SGPT) 23 # 12-78 U/L Alkaline Phosphatase 71 50-136 U/L Total Protein 6.6 6.0-8.3 g/dL Albumin 3.5 3.5-5.0 g/dL Prothrombin Time 11.0 9.6-11.6 SEC Prothromb Time International Ratio 1.02 0.85-1.15 Test 04/15/24 12:55 Range/Units Hemoglobin A1c 6.3 H 4.0-6.0 % Estimated Average Glucose (eAG) 134 H 70-126 mg/dL Triglycerides Level 108 30-200 mg/dL Cholesterol Level 152 <200 mg/dL LDL Cholesterol 73 0-99 mg/dL HDL Cholesterol 62 29-71 mg/dL Thyroid Stimulating Hormone (TSH) 0.78 0.36-3.74 uIU/mL Current Medications Medications (Trade) Dose Ordered Sig/Wes Route PRN Reason Start Time Stop Time Status Last Admin Dose Admin Aspirin (Aspirin 81mg Chew Tab) 81 mg DAILY PO 04/15/24 14:00 05/15/24 13:59 04/17/24 08:54 81 MG Atorvastatin Calcium (LIPItor 40MG) 40 mg HS PO 04/15/24 21:00 05/15/24 20:59 04/16/24 20:46 40 MG Clopidogrel Bisulfate (plaVIX 75MG) 75 mg DAILY PO 04/15/24 14:00 04/15/24 18:27 DC 04/15/24 14:15 75 MG Famotidine (Pepcid 20mg Tab) 20 mg BID PO 04/15/24 21:00 05/15/24 20:59 04/17/24 08:53 20 MG Heparin Sodium (Porcine) (HEParin 5,000 UNIT VIAL) *calculation based on ACTUAL B... AD PRN IV HEPARIN PROTOCOL 04/15/24 14:00 05/15/24 13:59 Heparin Sodium/ Dextrose 250 ml @ 0 mls/hr Q6H IV 04/15/24 14:00 05/15/24 13:59 04/17/24 07:51 10.62 MLS/HR Hydralazine HCl (APRESOLine 20MG INJ) 10 mg Q6H PRN IV ADMINISTER FOR SBP > 160 04/15/24 14:00 05/15/24 13:59 Insulin Human Regular (humuLIN R 100 UNIT/ML 3ML) INSULIN SLIDING SCAL... ACHS SQ 04/15/24 16:30 05/15/24 16:29 Magnesium Sulfate 50 ml @ 0 mls/hr PROTOCOL IV 04/15/24 14:00 05/15/24 13:59 Metoprolol Tartrate (loprESSOR) 12.5 mg BID PO 04/16/24 21:00 05/16/24 20:59 04/17/24 08:54 12.5 MG Metoprolol Tartrate (loprESSOR) 25 mg ONCE STAT PO 04/15/24 12:43 04/15/24 12:46 DC 04/15/24 12:52 25 MG Nitroglycerin (Nitrostat) 0.4 mg AD PRN SL CHEST PAIN 04/15/24 22:30 05/15/24 22:29 Potassium Chloride 100 ml @ 100 mls/hr AD PRN IV POTASSIUM PROTOCOL 04/15/24 14:00 05/15/24 13:59 Potassium Chloride (K-Dur/Klor-Con 20meq) 20 meq AD PRN PO POTASSIUM PROTOCOL 04/15/24 14:00 05/15/24 13:59 04/15/24 14:14 20 MEQ Potassium Chloride (KCl 10% Elixir 20meq/15ml) 20 meq AD PRN PO POTASSIUM PROTOCOL 04/15/24 14:00 05/15/24 13:59 Sacubitril/ Valsartan (Entresto 24 Mg-26 Mg Tablet) 1 each BID PO 04/15/24 21:00 05/15/24 20:59 04/17/24 08:53 1 EACH DIAGNOSTICS / RADIOLOGY: [ ] ASSESSMENT: Acute Inferior wall acute STEMI, status post TNKase, 04/13/2024, POA Underlying history of coronary artery disease, POA Family history of premature coronary artery disease, POA Type 2 diabetes mellitus, POA Hypertension, POA Hyperlipidemia, POA PLAN: Patient will continue with care in cardiac telemetry floor Pending CV surgery recommendations Continue with dual antiplatelet therapy with aspirin and Plavix and heparin infusion Continue with Lipitor, we will restart patient back on Entresto Continue with statin therapy with Lipitor 40 mg daily Sliding scale insulin a.c. and HS and basal Lantus based on blood glucose trend tonight, we will check a A1c All labs will be repeated in the morning GI prophylaxis with Pepcid, DVT prophylaxis with heparin Cardiology consult, appreciate recommendation Disposition: Pending CABG and post op course LEVI AKERS MD Apr 17, 2024 11:19
--- NOTE | 2024-04-17 12:31 | PN ---
[facility] CARDIOLOGY PROGRESS NOTE Cardiology progress note dictated for Cookie Levy MD Primary pourer metal: Salud Crocker MD Date Patient Seen: Apr 17, 2024 Interval History: The patient is in bed eating lunch, in no acute distress. The patient denies chest pain, palpitations, dizziness, shortness of breath, fever, cough, nausea, vomiting, hematuria, or melena. The patient continues on a heparin drip. Physical Examination: GENERAL: No acute distress. HEAD: Normal with no signs of head trauma. EYES: PERRLA, EOMI, conjunctiva and sclera normal. NECK: Supple without JVD. There is no tenderness, lymphadenopathy, or masses. No thyromegaly. Normal carotid upstrokes without bruits. LUNGS: Clear breath sounds bilaterally. No wheezes, or rhonchi. HEART: Normal rate and rhythm. Normal S1 and S2 without murmurs, gallop or rub. VASC: Peripheral pulses +2 bilaterally. Right groin with dressing in place, is soft to touch, no hematoma, minimal bruising noted. EXT: No clubbing, cyanosis or edema. NEURO: Awake, alert, and oriented x3. No focal neurological deficits noted. Laboratory: Hematology Labs: Test 04/16/24 07:14 Range/Units White Blood Count 5.0 4.8-10.8 K/uL Red Blood Count 4.56 4.50-6.20 MIL/uL Hemoglobin 14.1 14.0-18.0 g/dL Hematocrit 42.1 42-54 % Mean Corpuscular Volume 92.3 79-99 fL Mean Corpuscular Hemoglobin 30.9 27.0-33.0 pg Mean Corpuscular Hemoglobin Concent 33.5 32.0-36.0 g/dL Red Cell Distribution Width 13.2 11.0-15.5 % Platelet Count 165 130-400 K/uL Mean Platelet Volume 9.1 7.5-10.5 fL Immature Granulocyte % (Auto) 0.4 0-1 % Neutrophils (%) (Auto) 59.7 40.0-77.0 % Lymphocytes (%) (Auto) 29.3 21.0-51.0 % Monocytes (%) (Auto) 8.6 3.0-13.0 % Eosinophils (%) (Auto) 1.8 0.0-8.0 % Basophils (%) (Auto) 0.2 0.0-5.0 % Neutrophils # (Auto) 3.0 1.8-7.7 K/uL Lymphocytes # (Auto) 1.5 1.0-4.8 K/uL Monocytes # (Auto) 0.4 0.1-1.0 K/uL Eosinophils # (Auto) 0.09 0.00-0.70 K/uL Basophils # (Auto) 0.01 0.00-0.20 K/uL Absolute Immature Granulocyte (auto 0.02 0-1 K/uL Nucleated Red Blood Cells 0.0 0.0-0.19 % Chemistry Labs: Test 04/17/24 12:03 04/16/24 07:14 04/15/24 12:55 Range/Units Whole Blood Glucose 114 H 70-110 MG/DL Sodium Level 138 136-145 mmol/L Potassium Level 4.1 3.5-5.1 mmol/L Chloride Level 103 101-111 mmol/L Carbon Dioxide Level 26 21-32 mmol/L Blood Urea Nitrogen 16 7-18 mg/dL Creatinine 0.8 0.5-1.3 mg/dL Glomerular Filtration Rate Calc 108 >90 mL/min Random Glucose 99 70-105 mg/dL Total Calcium 8.6 8.5-10.1 mg/dL Magnesium Level 2.00 1.80-2.40 mg/dL Total Bilirubin 0.5 # 0.2-1.0 mg/dL Aspartate Amino Transf (AST/SGOT) 15 10-37 U/L Alanine Aminotransferase (ALT/SGPT) 23 # 12-78 U/L Alkaline Phosphatase 71 50-136 U/L Total Protein 6.6 6.0-8.3 g/dL Albumin 3.5 3.5-5.0 g/dL Hemoglobin A1c 6.3 H 4.0-6.0 % Estimated Average Glucose (eAG) 134 H 70-126 mg/dL Triglycerides Level 108 30-200 mg/dL Cholesterol Level 152 <200 mg/dL LDL Cholesterol 73 0-99 mg/dL HDL Cholesterol 62 29-71 mg/dL Thyroid Stimulating Hormone (TSH) 0.78 0.36-3.74 uIU/mL Coagulation Labs: Test 04/17/24 07:10 04/15/24 19:20 Range/Units Activated Partial Thromboplast Time 52.7 H 26.3-35.5 SEC Prothrombin Time 11.0 9.6-11.6 SEC Prothromb Time International Ratio 1.02 0.85-1.15 Diagnostics / Radiology: Impression and Plan: Acute Inferior wall acute STEMI, status post TNKase, 04/13/2024, POA [place] [facility] 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 The patient is pending surgical revascularization with unroofing of the RCA possibly tomorrow on 04/18/2024, but if not, possibly Saturday. -Continue Aspirin 81 mg daily, Atorvastatin 40 mg q.h.s., Metoprolol tartrate 12.5 mg b.i.d., Entresto 24-26 mg b.i.d. and Heparin JUSTIAN EasleyP Apr 17, 2024 12:31
[2024-04-17] MEDS: acetaMINOPHEN 325 MG TAB PO PRN (22:59)
[2024-04-18] VITALS (9 sets, daily range): BP systolic 97–115; BP diastolic 60–75; PULSE 69–87; RESP 16–18; TEMP 97.8–99; O2SAT 95–96
--- NOTE | 2024-04-18 10:15 | PN ---
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 The patient has not had any further chest pain. He is on a heparin drip. I attempted to schedule the patient for surgery yesterday and today; however, due to staffing, this was unable to be done. Should be able to schedule him for Saturday. TID: [id number] RECEIPT: [id number]
--- NOTE | 2024-04-18 13:10 | PN ---
[facility] PROGRESS NOTE Date of Service: Apr 18, 2024 Time of Service: 13:08 SUBJECTIVE: 04/16 patient seen at bedside, no acute events overnight. Patient has been evaluated by Cardiology and a coronary CTA was performed, they are recommending cardio vascular surgery recommendations. He is likely to be taken do surgery tomorrow, we will follow up with CV surgery. Vitals and labs are relatively unremarkable. 04/17 patient seen at bedside, no acute events overnight. Pending CABG with CV surgery today, we will follow up postprocedure. Vitals and labs are relatively unremarkable. 04/17 patient seen at bedside, no acute events overnight. CABG scheduled yesterday, however due to staffing issues, had to be rescheduled for Saturday. Vitals and labs are relatively unremarkable. REVIEW OF SYSTEMS 12 point review of systems negative unless noted in HPI PHYSICAL EXAM GENERAL APPEARANCE: The patient is awake, alert, and oriented, in no acute cardiopulmonary distress. NEUROLOGICAL: Cranial nerves II-XII grossly intact. Motor is 5/5 in bilateral upper and lower extremities proximal to distal. No sensory deficits. HEENT: Face is symmetric. Pupils are equal and reactive. Extraocular movements are intact. NECK: Supple. No JVD. No thyromegaly. No submental, submandibular, pre- /postauricular, occipital or supraclavicular lymphadenopathy. CHEST: Normal chest expansion. No Telemetry. LUNGS: Absence of any rales, rhonchi or any wheezing. CARDIOVASCULAR: Regular. S1 and S2 normal. No appreciable rubs, murmurs or gallops. ABDOMEN: Soft, nontender, and nondistended. There is no rebound, voluntary guarding, or rigidity. : Deferred. No [place]. EXTREMITIES: Non-edematous and not cyanotic. No clubbing. Good capillary refill. SKIN: No skin breakdown. Vital Signs (last 8hr) Date Time Temp Pulse Resp B/P (MAP) Pulse Ox O2 Delivery O2 Flow Rate FiO2 04/18/24 12:27 98.8 87 18 108/63 95 Room Air 04/18/24 08:55 95 Room Air* 0 21 04/18/24 08:43 97.9 78 18 102/66 95 Room Air LABS: Laboratory: Test 04/18/24 12:09 04/18/24 07:16 Range/Units Whole Blood Glucose 106 70-110 MG/DL Activated Partial Thromboplast Time 55.5 H 26.3-35.5 SEC Current Medications Medications (Trade) Dose Ordered Sig/Wes Route PRN Reason Start Time Stop Time Status Last Admin Dose Admin Acetaminophen (TYLenol 325MG TAB) 650 mg Q6H PRN PO MILD PAIN (1-3) 04/17/24 22:00 05/17/24 21:59 04/17/24 22:59 650 MG Aspirin (Aspirin 81mg Chew Tab) 81 mg DAILY PO 04/15/24 14:00 05/15/24 13:59 04/18/24 09:11 81 MG Atorvastatin Calcium (LIPItor 40MG) 40 mg HS PO 04/15/24 21:00 05/15/24 20:59 04/17/24 21:16 40 MG Clopidogrel Bisulfate (plaVIX 75MG) 75 mg DAILY PO 04/15/24 14:00 04/15/24 18:27 DC 04/15/24 14:15 75 MG Famotidine (Pepcid 20mg Tab) 20 mg BID PO 04/15/24 21:00 05/15/24 20:59 04/18/24 09:10 20 MG Heparin Sodium (Porcine) (HEParin 5,000 UNIT VIAL) *calculation based on ACTUAL B... AD PRN IV HEPARIN PROTOCOL 04/15/24 14:00 05/15/24 13:59 Heparin Sodium/ Dextrose 250 ml @ 0 mls/hr Q6H IV 04/15/24 14:00 05/15/24 13:59 04/18/24 08:39 10 MLS/HR Hydralazine HCl (APRESOLine 20MG INJ) 10 mg Q6H PRN IV ADMINISTER FOR SBP > 160 04/15/24 14:00 05/15/24 13:59 Insulin Human Regular (humuLIN R 100 UNIT/ML 3ML) INSULIN SLIDING SCAL... ACHS SQ 04/15/24 16:30 05/15/24 16:29 Magnesium Sulfate 50 ml @ 0 mls/hr PROTOCOL IV 04/15/24 14:00 05/15/24 13:59 Metoprolol Tartrate (loprESSOR) 12.5 mg BID PO 04/16/24 21:00 05/16/24 20:59 04/18/24 09:11 12.5 MG Metoprolol Tartrate (loprESSOR) 25 mg ONCE STAT PO 04/15/24 12:43 04/15/24 12:46 DC 04/15/24 12:52 25 MG Nitroglycerin (Nitrostat) 0.4 mg AD PRN SL CHEST PAIN 04/15/24 22:30 05/15/24 22:29 Potassium Chloride 100 ml @ 100 mls/hr AD PRN IV POTASSIUM PROTOCOL 04/15/24 14:00 05/15/24 13:59 Potassium Chloride (K-Dur/Klor-Con 20meq) 20 meq AD PRN PO POTASSIUM PROTOCOL 04/15/24 14:00 05/15/24 13:59 04/15/24 14:14 20 MEQ Potassium Chloride (KCl 10% Elixir 20meq/15ml) 20 meq AD PRN PO POTASSIUM PROTOCOL 04/15/24 14:00 05/15/24 13:59 Sacubitril/ Valsartan (Entresto 24 Mg-26 Mg Tablet) 1 each BID PO 04/15/24 21:00 05/15/24 20:59 04/18/24 09:10 1 EACH DIAGNOSTICS / RADIOLOGY: [ ] ASSESSMENT: Acute Inferior wall acute STEMI, status post TNKase, 04/13/2024, POA Underlying history of coronary artery disease, POA Family history of premature coronary artery disease, POA Type 2 diabetes mellitus, POA Hypertension, POA Hyperlipidemia, POA PLAN: Patient will continue with care in cardiac telemetry floor Pending CV surgery recommendations Continue with dual antiplatelet therapy with aspirin and Plavix and heparin infusion Continue with Lipitor, we will restart patient back on Entresto after procedure Continue with statin therapy with Lipitor 40 mg daily Sliding scale insulin a.c. and HS and basal Lantus based on blood glucose trend tonight, we will check a A1c All labs will be repeated in the morning GI prophylaxis with Pepcid, DVT prophylaxis with heparin Cardiology consult, appreciate recommendation Disposition: Pending CABG and post op course LEVI AKERS MD Apr 18, 2024 13:10
--- NOTE | 2024-04-18 14:05 | PN ---
[facility] CARDIOLOGY PROGRESS NOTE Cardiology progress note dictated for Cookie Levy MD Primary stone setter apprentice: Salud Crocker MD Date Patient Seen: Apr 18, 2024 Interval History: The patient is in bed, in no acute distress. The patient denies chest pain, palpitations, dizziness, shortness of breath, fever, cough, nausea, vomiting, hematuria, or melena. The patient continues on a heparin drip. Telemetry demonstrates normal sinus rhythm Physical Examination: GENERAL: No acute distress. HEAD: Normal with no signs of head trauma. EYES: PERRLA, EOMI, conjunctiva and sclera normal. NECK: Supple without JVD. There is no tenderness, lymphadenopathy, or masses. No thyromegaly. Normal carotid upstrokes without bruits. LUNGS: Clear breath sounds bilaterally. No wheezes, or rhonchi. HEART: Normal rate and rhythm. Normal S1 and S2 without murmurs, gallop or rub. VASC: Peripheral pulses +2 bilaterally. Right groin with dressing in place, is soft to touch, no hematoma, minimal bruising noted. EXT: No clubbing, cyanosis or edema. NEURO: Awake, alert, and oriented x3. No focal neurological deficits noted. Laboratory: Chemistry Labs: Test 04/18/24 12:09 Range/Units Whole Blood Glucose 106 70-110 MG/DL Coagulation Labs: Test 04/18/24 07:16 Range/Units Activated Partial Thromboplast Time 55.5 H 26.3-35.5 SEC Diagnostics / Radiology: Impression and Plan: Acute Inferior wall acute STEMI, status post TNKase, 04/13/2024, POA Status post [place] [facility] 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 The patient is pending surgical revascularization with unroofing of the RCA on Saturday04/20/2024 -Continue Aspirin 81 mg daily, Atorvastatin 40 mg q.h.s., Metoprolol tartrate 12.5 mg b.i.d., Entresto 24-26 mg b.i.d. and Heparin gtt -Recommend DAPT for 1yr, initiate Plavix prior to discharge JUSTINA DYSON TRANSFER COORDINATOR Apr 18, 2024 14:05
[2024-04-19] VITALS (7 sets, daily range): BP systolic 102–130; BP diastolic 63–66; PULSE 76–82; RESP 16–20; TEMP 98.1–98.6; O2SAT 96–98
[2024-04-19 04:06] LABS: BASOPHILS # (AUTO) 0.01 K/uL (0.00-0.20); BASOPHILS % (AUTO) 0.2 % (0.0-5.0); EOSINOPHILS # (AUTO) 0.11 K/uL (0.00-0.70); HEMATOCRIT 45.9 % (42-54); IMMATURE GRANULOCYTE ABSOLUTE 0.03 K/uL (0-1); LYMPHOCYTES % (AUTO) 34.6 % (21.0-51.0); MEAN CORPUSCULAR HEMOGLOBIN 30.6 pg (27.0-33.0); MEAN CORPUSCULAR HGB CONC 32.7 g/dL (32.0-36.0); MEAN CORPUSCULAR VOLUME 93.7 fL (79-99); MONOCYTES # (AUTO) 0.5 K/uL (0.1-1.0); MONOCYTES % (AUTO) 9.6 % (3.0-13.0); NEUTROPHILS % (AUTO) 53.1 % (40.0-77.0); PLATELET COUNT (AUTO) 189 K/uL (130-400); RED CELL DISTRIBUTION WIDTH 13.2 % (11.0-15.5); WHITE BLOOD COUNT (AUTO) 5.6 K/uL (4.8-10.8)
[2024-04-19 04:22] LABS: CREATININE 0.9 mg/dL (0.5-1.3); MAGNESIUM 2.1 mg/dL (1.80-2.40); PHOSPHORUS 3.9 mg/dL (2.5-4.9); POTASSIUM 4.3 mmol/L (3.5-5.1)
[2024-04-19 07:30] LABS: INR 1.04 (0.85-1.15); PROTHROMBIN TIME 11.2 SEC (9.6-11.6)
[2024-04-19 07:31] LABS: PARTIAL THROMBOPLASTIN TIME 53.4 SEC (26.3-35.5)
--- NOTE | 2024-04-19 10:09 | PN ---
[facility] CARDIOLOGY PROGRESS NOTE Cardiology progress note dictated for Cookie Levy MD Primary public speaking instructor: Salud Crocker MD Date Patient Seen: Apr 19, 2024 Interval History: The patient is in bed, in no acute distress. The patient denies chest pain, palpitations, dizziness, shortness of breath, fever, cough, nausea, vomiting, hematuria, or melena. The patient continues on a heparin drip. Telemetry demonstrates normal sinus rhythm Physical Examination: GENERAL: No acute distress. HEAD: Normal with no signs of head trauma. EYES: PERRLA, EOMI, conjunctiva and sclera normal. NECK: Supple without JVD. There is no tenderness, lymphadenopathy, or masses. No thyromegaly. Normal carotid upstrokes without bruits. LUNGS: Clear breath sounds bilaterally. No wheezes, or rhonchi. HEART: Normal rate and rhythm. Normal S1 and S2 without murmurs, gallop or rub. VASC: Peripheral pulses +2 bilaterally. Right groin [employer], is soft to touch, no hematoma, minimal bruising noted. EXT: No clubbing, cyanosis or edema. NEURO: Awake, alert, and oriented x3. No focal neurological deficits noted. Laboratory: [ ] Hematology Labs: Test 04/19/24 03:33 Range/Units White Blood Count 5.6 4.8-10.8 K/uL Red Blood Count 4.90 4.50-6.20 MIL/uL Hemoglobin 15.0 14.0-18.0 g/dL Hematocrit 45.9 42-54 % Mean Corpuscular Volume 93.7 79-99 fL Mean Corpuscular Hemoglobin 30.6 27.0-33.0 pg Mean Corpuscular Hemoglobin Concent 32.7 32.0-36.0 g/dL Red Cell Distribution Width 13.2 11.0-15.5 % Platelet Count 189 130-400 K/uL Mean Platelet Volume 9.3 7.5-10.5 fL Immature Granulocyte % (Auto) 0.5 0-1 % Neutrophils (%) (Auto) 53.1 40.0-77.0 % Lymphocytes (%) (Auto) 34.6 21.0-51.0 % Monocytes (%) (Auto) 9.6 3.0-13.0 % Eosinophils (%) (Auto) 2.0 0.0-8.0 % Basophils (%) (Auto) 0.2 0.0-5.0 % Neutrophils # (Auto) 3.0 1.8-7.7 K/uL Lymphocytes # (Auto) 2.0 1.0-4.8 K/uL Monocytes # (Auto) 0.5 0.1-1.0 K/uL Eosinophils # (Auto) 0.11 0.00-0.70 K/uL Basophils # (Auto) 0.01 0.00-0.20 K/uL Absolute Immature Granulocyte (auto 0.03 0-1 K/uL Nucleated Red Blood Cells 0.0 0.0-0.19 % Chemistry Labs: Test 04/19/24 05:19 04/19/24 03:33 Range/Units Whole Blood Glucose 118 H 70-110 MG/DL Sodium Level 140 136-145 mmol/L Potassium Level 4.3 3.5-5.1 mmol/L Chloride Level 103 101-111 mmol/L Carbon Dioxide Level 29 21-32 mmol/L Blood Urea Nitrogen 17 7-18 mg/dL Creatinine 0.9 0.5-1.3 mg/dL Glomerular Filtration Rate Calc 105 >90 mL/min Random Glucose 111 H 70-105 mg/dL Total Calcium 9.3 8.5-10.1 mg/dL Phosphorus Level 3.9 2.5-4.9 mg/dL Magnesium Level 2.10 1.80-2.40 mg/dL Coagulation Labs: Test 04/19/24 07:10 Range/Units Prothrombin Time 11.2 9.6-11.6 SEC Prothromb Time International Ratio 1.04 0.85-1.15 Activated Partial Thromboplast Time 53.4 H 26.3-35.5 SEC Diagnostics / Radiology: Impression and Plan: Acute Inferior wall acute STEMI, status post TNKase, 04/13/2024, POA Status post LHC on 04/14/2024 at [facility] [place] by Dr. 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 The patient is pending surgical revascularization with unroofing of the RCA on Saturday04/20/2024 -Continue Aspirin 81 mg daily, Atorvastatin 40 mg q.h.s., Metoprolol tartrate 12.5 mg b.i.d., Entresto 24-26 mg b.i.d. and Heparin gtt -Recommend DAPT for 1yr, initiate Plavix prior to discharge JUSTINA DYSON HANDLE ATTACHER Apr 19, 2024 10:09
--- NOTE | 2024-04-19 11:05 | PN ---
[facility] PROGRESS NOTE Date of Service: Apr 19, 2024 Time of Service: 11:05 SUBJECTIVE: 04/17 patient seen at bedside, no acute events overnight. Patient has been evaluated by Cardiology and a coronary CTA was performed, they are recommending cardio vascular surgery recommendations. He is likely to be taken do surgery tomorrow, we will follow up with CV surgery. Vitals and labs are relatively unremarkable. 04/18 patient seen at bedside, no acute events overnight. Pending CABG with CV surgery today, we will follow up postprocedure. Vitals and labs are relatively unremarkable. 04/19 patient seen at bedside, no acute events overnight. CABG rescheduled for Saturday. Vitals and labs are relatively unremarkable. REVIEW OF SYSTEMS 12 point review of systems negative unless noted in HPI PHYSICAL EXAM GENERAL APPEARANCE: The patient is awake, alert, and oriented, in no acute cardiopulmonary distress. NEUROLOGICAL: Cranial nerves II-XII grossly intact. Motor is 5/5 in bilateral upper and lower extremities proximal to distal. No sensory deficits. HEENT: Face is symmetric. Pupils are equal and reactive. Extraocular movements are intact. NECK: Supple. No JVD. No thyromegaly. No submental, submandibular, pre-/postauricular, occipital or supraclavicular lymphadenopathy. CHEST: Normal chest expansion. No Telemetry. LUNGS: Absence of any rales, rhonchi or any wheezing. CARDIOVASCULAR: Regular. S1 and S2 normal. No appreciable rubs, murmurs or gallops. ABDOMEN: Soft, nontender, and nondistended. There is no rebound, voluntary guarding, or rigidity. : Deferred. No [place]. EXTREMITIES: Non-edematous and not cyanotic. No clubbing. Good capillary refill. SKIN: No skin breakdown. Vital Signs (last 8hr) Date Time Temp Pulse Resp B/P (MAP) Pulse Ox O2 Delivery O2 Flow Rate FiO2 04/19/24 07:00 98.1 77 20 103/65 97 Room Air 04/19/24 03:23 98.6 76 16 102/65 98 Room Air LABS: Laboratory: Test 04/19/24 07:10 04/19/24 05:19 04/19/24 03:33 Range/Units Prothrombin Time 11.2 9.6-11.6 SEC Prothromb Time International Ratio 1.04 0.85-1.15 Activated Partial Thromboplast Time 53.4 H 26.3-35.5 SEC Whole Blood Glucose 118 H 70-110 MG/DL White Blood Count 5.6 4.8-10.8 K/uL Red Blood Count 4.90 4.50-6.20 MIL/uL Hemoglobin 15.0 14.0-18.0 g/dL Hematocrit 45.9 42-54 % Mean Corpuscular Volume 93.7 79-99 fL Mean Corpuscular Hemoglobin 30.6 27.0-33.0 pg Mean Corpuscular Hemoglobin Concent 32.7 32.0-36.0 g/dL Red Cell Distribution Width 13.2 11.0-15.5 % Platelet Count 189 130-400 K/uL Mean Platelet Volume 9.3 7.5-10.5 fL Immature Granulocyte % (Auto) 0.5 0-1 % Neutrophils (%) (Auto) 53.1 40.0-77.0 % Lymphocytes (%) (Auto) 34.6 21.0-51.0 % Monocytes (%) (Auto) 9.6 3.0-13.0 % Eosinophils (%) (Auto) 2.0 0.0-8.0 % Basophils (%) (Auto) 0.2 0.0-5.0 % Neutrophils # (Auto) 3.0 1.8-7.7 K/uL Lymphocytes # (Auto) 2.0 1.0-4.8 K/uL Monocytes # (Auto) 0.5 0.1-1.0 K/uL Eosinophils # (Auto) 0.11 0.00-0.70 K/uL Basophils # (Auto) 0.01 0.00-0.20 K/uL Absolute Immature Granulocyte (auto 0.03 0-1 K/uL Nucleated Red Blood Cells 0.0 0.0-0.19 % Sodium Level 140 136-145 mmol/L Potassium Level 4.3 3.5-5.1 mmol/L Chloride Level 103 101-111 mmol/L Carbon Dioxide Level 29 21-32 mmol/L Blood Urea Nitrogen 17 7-18 mg/dL Creatinine 0.9 0.5-1.3 mg/dL Glomerular Filtration Rate Calc 105 >90 mL/min Random Glucose 111 H 70-105 mg/dL Total Calcium 9.3 8.5-10.1 mg/dL Phosphorus Level 3.9 2.5-4.9 mg/dL Magnesium Level 2.10 1.80-2.40 mg/dL Current Medications Medications (Trade) Dose Ordered Sig/Wes Route PRN Reason Start Time Stop Time Status Last Admin Dose Admin Acetaminophen (TYLenol 325MG TAB) 650 mg Q6H PRN PO MILD PAIN (1-3) 04/17/24 22:00 05/17/24 21:59 04/17/24 22:59 650 MG Aspirin (Aspirin 81mg Chew Tab) 81 mg DAILY PO 04/15/24 14:00 05/15/24 13:59 04/19/24 09:10 81 MG Atorvastatin Calcium (LIPItor 40MG) 40 mg HS PO 04/15/24 21:00 05/15/24 20:59 04/18/24 20:24 40 MG Clopidogrel Bisulfate (plaVIX 75MG) 75 mg DAILY PO 04/15/24 14:00 04/15/24 18:27 DC 04/15/24 14:15 75 MG Famotidine (Pepcid 20mg Tab) 20 mg BID PO 04/15/24 21:00 05/15/24 20:59 04/19/24 09:10 20 MG Heparin Sodium (Porcine) (HEParin 5,000 UNIT VIAL) *calculation based on ACTUAL B... AD PRN IV HEPARIN PROTOCOL 04/15/24 14:00 05/15/24 13:59 Heparin Sodium/ Dextrose 250 ml @ 0 mls/hr Q6H IV 04/15/24 14:00 05/15/24 13:59 04/19/24 02:00 10.5 MLS/HR Hydralazine HCl (APRESOLine 20MG INJ) 10 mg Q6H PRN IV ADMINISTER FOR SBP > 160 04/15/24 14:00 05/15/24 13:59 Insulin Human Regular (humuLIN R 100 UNIT/ML 3ML) INSULIN SLIDING SCAL... ACHS SQ 04/15/24 16:30 05/15/24 16:29 Magnesium Sulfate 50 ml @ 0 mls/hr PROTOCOL IV 04/15/24 14:00 05/15/24 13:59 Metoprolol Tartrate (loprESSOR) 12.5 mg BID PO 04/16/24 21:00 05/16/24 20:59 04/19/24 09:10 12.5 MG Metoprolol Tartrate (loprESSOR) 25 mg ONCE STAT PO 04/15/24 12:43 04/15/24 12:46 DC 04/15/24 12:52 25 MG Nitroglycerin (Nitrostat) 0.4 mg AD PRN SL CHEST PAIN 04/15/24 22:30 05/15/24 22:29 Potassium Chloride 100 ml @ 100 mls/hr AD PRN IV POTASSIUM PROTOCOL 04/15/24 14:00 05/15/24 13:59 Potassium Chloride (K-Dur/Klor-Con 20meq) 20 meq AD PRN PO POTASSIUM PROTOCOL 04/15/24 14:00 05/15/24 13:59 04/15/24 14:14 20 MEQ Potassium Chloride (KCl 10% Elixir 20meq/15ml) 20 meq AD PRN PO POTASSIUM PROTOCOL 04/15/24 14:00 05/15/24 13:59 Sacubitril/ Valsartan (Entresto 24 Mg-26 Mg Tablet) 1 each BID PO 04/15/24 21:00 05/15/24 20:59 04/19/24 09:10 1 EACH DIAGNOSTICS / RADIOLOGY: [ ] ASSESSMENT: Acute Inferior wall acute STEMI, status post TNKase, 04/13/2024, POA Underlying history of coronary artery disease, POA Family history of premature coronary artery disease, POA Type 2 diabetes mellitus, POA Hypertension, POA Hyperlipidemia, POA PLAN: Patient will continue with care in cardiac telemetry floor Pending CV surgery recommendations Continue with dual antiplatelet therapy with aspirin and Plavix and heparin infusion Continue with Lipitor, we will restart patient back on Entresto after procedure Continue with statin therapy with Lipitor 40 mg daily Sliding scale insulin a.c. and HS and basal Lantus based on blood glucose trend tonight, we will check a A1c All labs will be repeated in the morning GI prophylaxis with Pepcid, DVT prophylaxis with heparin Cardiology consult, appreciate recommendation Disposition: Pending CABG and post op course LEVI AKERS MD Apr 19, 2024 11:05
[2024-04-19] MEDS ORDERED: ceFAZolin SODIUM 2 GM VIAL IVP PRN (14:30)
[2024-04-19 15:51] LABS: ABG BASE EXCESS -0.5 mmol/L (-2.0-3.0); ABG HCO3 23.9 mmol/L (21.0-28.0); ABG OXYGEN SATURATION 96.7 % (94.0-98.0); ABG PCO2 39 mmHg (35-48); ABG PH 7.406 (7.350-7.450); PO2, ARTERIAL BG 87.4 mmHg (83.0-108.0); VENT MODE, BG RA (ROOM AIR)
--- NOTE | 2024-04-19 16:56 | HMCIMG ---
CAROTID ULTRASOUND CLINICAL INFORMATION:preop CV surgery Carotid bifurcations: Normal Vertebrals: Antegrade bilaterally RCCA: 63 cm/s LCCA: 90 cm/s CASA: 105 cm/s LICA: 110 cm/s Ratio: 1.7 Ratio: 1.2 IMPRESSION: No image or Doppler evidence of carotid stenosis.
[2024-04-20] VITALS (58 sets, daily range): BP systolic 82–127; BP diastolic 50–80; PULSE 83–133; RESP 9–29; TEMP 97.8–99.3; O2SAT 99–100
--- NOTE | 2024-04-20 04:16 | NUR ---
report given to adama hidalgo
--- NOTE | 2024-04-20 04:25 | NUR ---
ROUNDS ASSUMED CARE OF PT FROM NOW. V/S MONITORED, STABLE. KEPT NPO FOR SX.
[2024-04-20 04:29] LABS: BASOPHILS # (AUTO) 0.02 K/uL (0.00-0.20); BASOPHILS % (AUTO) 0.4 % (0.0-5.0); EOSINOPHILS # (AUTO) 0.09 K/uL (0.00-0.70); EOSINOPHILS % (AUTO) 1.8 % (0.0-8.0); IMMATURE GRANULOCYTE ABSOLUTE 0.02 K/uL (0-1); LYMPHOCYTES # (AUTO) 1.4 K/uL (1.0-4.8); LYMPHOCYTES % (AUTO) 29.3 % (21.0-51.0); MEAN CORPUSCULAR HEMOGLOBIN 31.1 pg (27.0-33.0); MEAN CORPUSCULAR HGB CONC 32.9 g/dL (32.0-36.0); MEAN CORPUSCULAR VOLUME 94.6 fL (79-99); MONOCYTES # (AUTO) 0.5 K/uL (0.1-1.0); MONOCYTES % (AUTO) 9.8 % (3.0-13.0); NEUTROPHILS # (AUTO) 2.8 K/uL (1.8-7.7); NEUTROPHILS % (AUTO) 58.3 % (40.0-77.0); PLATELET COUNT (AUTO) 162 K/uL (130-400); RED BLOOD CELL COUNT(AUTO) 4.44 MIL/uL (4.50-6.20); RED CELL DISTRIBUTION WIDTH 13.1 % (11.0-15.5); WHITE BLOOD COUNT (AUTO) 4.9 K/uL (4.8-10.8)
[2024-04-20 04:35] LABS: CREATININE 0.9 mg/dL (0.5-1.3)
[2024-04-20 04:36] LABS: INR 0.99 (0.85-1.15); PROTHROMBIN TIME 10.7 SEC (9.6-11.6)
[2024-04-20 04:37] LABS: PARTIAL THROMBOPLASTIN TIME 28.7 SEC (26.3-35.5)
[2024-04-20 04:39] LABS: ALBUMIN 3.2 g/dL (3.5-5.0); BILIRUBIN,TOTAL 0.5 mg/dL (0.2-1.0); TOTAL PROTEIN, SERUM 6.6 g/dL (6.0-8.3)
[2024-04-20 05:04] LABS: B-TYPE NATRIURETIC PEPTIDE 8 pg/mL (0-100)
--- NOTE | 2024-04-20 05:30 | NUR ---
SHOWER PT HAD SECOND SHOWER FOR THE SHIFT. KEPT NPO FOR SURGERY. INSERTED SECOND PIV G18 TO LFA, TOLERATED WELL. METOPROLOL DOSE GIVEN WITH SIPS OF WATER. KEPT RESTED.
[2024-04-20] MEDS ORDERED: EPINEPHrine PF 1MG (1:1,000) 10 MG in 0.9% NACL 250ML 240 ML IV PRN ×2 (06:30→10:00)
[2024-04-20] MEDS ORDERED: aminoCAProic ACID 5,000MG VIAL 15,000 MG in 0.9% NACL 500ML IV.SOLN 420 ML IV PRN (06:30)
[2024-04-20] MEDS ORDERED: NOREPINEPHRIN 8MG/250ML NS 250 ML IV PRN (06:30)
[2024-04-20] MEDS ORDERED: HEParin-NS 1,000 UNIT/500 ML 500 ML IV ONE (06:41)
[2024-04-20] MEDS ORDERED: ceFAZolin SODIUM 1 GM VIAL ONE (06:41)
[2024-04-20] MEDS ORDERED: PAPAVERINE HCL 30 MG/ML 2ML VIAL ONE (06:41)
--- NOTE | 2024-04-20 06:53 | NUR ---
OR PT WHEELED DOWN TO HOLDING BY SX STAFF.
[2024-04-20] MEDS ORDERED: NITROGLYCERIN 50MG/D5W 250ML 1 BOT ONE (07:14)
[2024-04-20] MEDS: 0.9%NACL 1000ML 1,000 ML IV ONE (08:10)
[2024-04-20] MEDS: ceFAZolin SODIUM 2 GM VIAL ONE (08:10)
[2024-04-20] MEDS ORDERED: FENTanyl CITRate PF 50 MCG/1 ML 20ML VIAL IJ ONE (08:35)
[2024-04-20] MEDS ORDERED: proPOFol 10 MG/ML 20ML VIAL IV ONE (08:35)
[2024-04-20] MEDS ORDERED: EPINEPHrine PF 1MG (1:1,000) 1 MG/ML AMP ONE (08:35)
[2024-04-20] MEDS ORDERED: LIDOCAINE PF 100MG/5ML (2%) SYRINGE 5ML ONE (08:35)
[2024-04-20] MEDS ORDERED: HEParin 10,000 UNIT/10ML (1,000 UNIT/ML) VIAL ONE (08:35)
[2024-04-20] MEDS ORDERED: SODIUM BICARB 50MEQ 50ML VIAL 200 ML ONE (08:35)
[2024-04-20] MEDS ORDERED: PROTamine SULFate 10 MG/ML 25ML VIAL IV ONE (08:35)
[2024-04-20] MEDS ORDERED: NOREPINEPHRINE BITARTRATE 1 MG/1 ML ML IV ONE (08:35)
[2024-04-20] MEDS ORDERED: rocuRONium bROMide 10MG/1ML 5ML VL ONE ×2 (08:36→14:23)
[2024-04-20] MEDS ORDERED: MIDAZOLAM HCL 1 MG/ML 2ML VIAL ONE ×3 (08:36→14:22)
[2024-04-20] MEDS: ceFAZolin SODIUM 2 GM VIAL IVPB ONE (08:55)
[2024-04-20] MEDS ORDERED: DELNIDO FORMULA 1 BAG IV ONE (08:55)
--- NOTE | 2024-04-20 09:04 | HMCIMG ---
CHEST 1VW HISTORY: Preop COMPARISON: 10/25/2023 FINDINGS: A frontal projection of the chest was obtained. No acute pulmonary infiltrates is seen. The heart is normal in size. Prominent interstitial markings are seen. Degenerative changes are seen. IMPRESSION: 1. No acute pulmonary infiltrate is seen.
[2024-04-20 09:32] LABS: ABG BASE EXCESS -3.8 mmol/L (-2.0-3.0); ABG HCO3 19.9 mmol/L (21.0-28.0); ABG OXYGEN SATURATION 99.7 % (94.0-98.0); ABG PCO2 33 mmHg (35-48); ABG PH 7.403 (7.350-7.450); CARBON MONOXIDE 0.3 % (0.5-1.5); DEVICE COMMENT 1; HHb 0.3; PO2, ARTERIAL BG 438.9 mmHg (83.0-108.0)
[2024-04-20] MEDS ORDERED: ketaMINE HCL 100 MG/ML 5ML VIAL IJ ONE (09:34)
[2024-04-20] MEDS ORDERED: 0.9% NACL 500ML IV.SOLN 500 ML IV SCH (10:00)
[2024-04-20] MEDS ORDERED: DEXTROSE 50%-WATER 50 ML DISP.SYRIN IV PRN (10:00)
[2024-04-20] MEDS ORDERED: aminoCAProic ACID 5,000MG VIAL 15,000 MG in 0.9% NACL 250ML 250 ML IV SCH (10:00)
[2024-04-20] MEDS ORDERED: poTASSium PHOS 15 mMOL+NS250ML 250 ML IV PRN (10:00)
[2024-04-20] MEDS ORDERED: NITROGLYCERIN 50MG/D5W 250ML 250 BOT IV SCH (10:00)
[2024-04-20] MEDS ORDERED: NOREPINEPHRINE BITARTRATE 8 MG in DEXTROSE 5%-WATER 250 ML IV PRN (10:00)
[2024-04-20] MEDS ORDERED: 0.9%NACL 10ML VIAL IVP PRN (10:00)
[2024-04-20] MEDS ORDERED: GLUCAGON 1MG KIT 1 MG ML IM PRN (10:00)
[2024-04-20] MEDS ORDERED: proPOFol 1000 MG/100 ML 100 ML IV PRN (10:00)
[2024-04-20] MEDS ORDERED: morPHINE 2 MG SYG IV PRN (10:00)
[2024-04-20] MEDS ORDERED: acetaMINOPHEN 325 MG TAB PO PRN (10:00)
[2024-04-20] MEDS ORDERED: acetaMINOPHEN 650 MG SUPPOSITORY RC PRN (10:00)
[2024-04-20 11:10] LABS: ABG BASE EXCESS -7.4 mmol/L (-2.0-3.0); ABG PCO2 30 mmHg (35-48); ABG PH 7.372 (7.350-7.450); CARBON MONOXIDE 0.2 % (0.5-1.5); DEVICE COMMENT 3; PO2, ARTERIAL BG 201.7 mmHg (83.0-108.0)
[2024-04-20 11:24] LABS: ABG BASE EXCESS -2.2 mmol/L (-2.0-3.0); ABG HCO3 20.9 mmol/L (21.0-28.0); ABG OXYGEN SATURATION 97.7 % (94.0-98.0); ABG PCO2 30 mmHg (35-48); ABG PH 7.463 (7.350-7.450); CARBON MONOXIDE 0.2 % (0.5-1.5); DEVICE COMMENT 4; HHb 2.3; PO2, ARTERIAL BG 157.5 mmHg (83.0-108.0)
--- NOTE | 2024-04-20 11:36 | PN ---
Cardiology Progress Note Date of Service: 04/20/2024 Attending Selling Specialist: Dr. Raji Lozano Primary Selling Specialist: Dr. 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 We will reevaluate the patient post CABG and assist with his postoperative management. Vitals/Labs Vital Signs Date Time Temp Pulse Resp B/P (MAP) Pulse Ox O2 Delivery O2 Flow Rate FiO2 04/20/24 06:47 97.9 83 20 125/78 97 Room Air 0.0 04/19/24 20:00 21 Physical exam not performed. 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 -We will reassess the patient postoperative and assist in his postoperative course. Dr. Salud Crocker will assume care of the patient in the AM. This case was discussed with my Supervising Physician, Dr. Raji Lozano, and the above mentioned plan was formulated and agreed upon. -Progress note written by Rony Sharma, MSN, NUCLEAR PHYSICIST, AGACNP-BC RONY SHARMA NP Apr 20, 2024 11:36
[2024-04-20 11:49] LABS: ABG HCO3 20.9 mmol/L (21.0-28.0); ABG OXYGEN SATURATION 98.2 % (94.0-98.0); ABG PCO2 30 mmHg (35-48); ABG PH 7.468 (7.350-7.450); CARBON MONOXIDE 0.2 % (0.5-1.5); DEVICE COMMENT 5; HHb 1.8; PO2, ARTERIAL BG 287.7 mmHg (83.0-108.0)
[2024-04-20 12:28] LABS: ABG BASE EXCESS 1.5 mmol/L (-2.0-3.0); ABG HCO3 24.5 mmol/L (21.0-28.0); ABG PCO2 33 mmHg (35-48); ABG PH 7.484 (7.350-7.450); CARBON MONOXIDE 0 % (0.5-1.5); DEVICE COMMENT MILTON RN AL; VENT MODE, BG SIMV PS 10 (ROOM AIR)
--- NOTE | 2024-04-20 12:33 | PN ---
[facility] PROGRESS NOTE Date of Service: Apr 20, 2024 Time of Service: 12:33 SUBJECTIVE: 04/17 patient seen at bedside, no acute events overnight. Patient has been evaluated by Cardiology and a coronary CTA was performed, they are recommending cardio vascular surgery recommendations. He is likely to be taken do surgery tomorrow, we will follow up with CV surgery. Vitals and labs are relatively unremarkable. 04/18 patient seen at bedside, no acute events overnight. Pending CABG with CV surgery today, we will follow up postprocedure. Vitals and labs are relatively unremarkable. 04/19 patient seen at bedside, no acute events overnight. CABG rescheduled for Saturday. Vitals and labs are relatively unremarkable. 04/20 patient is seen and examined today during my rounding, he is now in the ICU, intubated, mechanical ventilation, status post CABG by Cardiothoracic surgeon today. Tolerated procedure well. at bedside, updated. REVIEW OF SYSTEMS 12 point review of systems negative unless noted in HPI PHYSICAL EXAM GENERAL APPEARANCE: Patient is intubated, on mechanical ventilation. NEUROLOGICAL: Cranial nerves II-XII grossly intact. Motor is 5/5 in bilateral upper and lower extremities proximal to distal. No sensory deficits. HEENT: Face is symmetric. Pupils are equal and reactive. Extraocular movements are intact. NECK: Supple. No JVD. No thyromegaly. No submental, submandibular, pre- /postauricular, occipital or supraclavicular lymphadenopathy. CHEST: Normal chest expansion. No Telemetry. LUNGS: Absence of any rales, rhonchi or any wheezing. CARDIOVASCULAR: Regular. S1 and S2 normal. No appreciable rubs, murmurs or gallops. ABDOMEN: Soft, nontender, and nondistended. There is no rebound, voluntary guarding, or rigidity. : Deferred. No [place]. EXTREMITIES: Non-edematous and not cyanotic. No clubbing. Good capillary refill. SKIN: No skin breakdown. Vital Signs (last 8hr) Date Time Temp Pulse Resp B/P (MAP) Pulse Ox O2 Delivery O2 Flow Rate FiO2 04/20/24 06:47 97.9 83 20 125/78 97 Room Air 0.0 LABS: Laboratory: Test 04/20/24 12:27 04/20/24 06:04 04/20/24 03:55 04/19/24 16:16 Range/Units Blood Gas Specimen Type Arterial Arterial Blood pH 7.484 H 7.350-7.450 Arterial Blood Partial Pressure CO2 33 L 35-48 mmHg Arterial Blood Partial Pressure O2 320.0 *H 83.0-108.0 mmHg Arterial Blood HCO3 24.5 21.0-28.0 mmol/L Arterial Blood Oxygen Saturation 99.0 H 94.0-98.0 % Arterial Blood Base Excess 1.5 -2.0-3.0 mmol/L Hemoglobin (Blood Gas) 12.7 L 13.5-17.5 g/dL Sodium (Blood Gas) 140 136-145 MMOL/L Bedside Potassium (Blood Gas) 4.6 H 3.4-4.5 MMOL/L Bedside Chloride (Blood Gas) 106 98-107 MMOL/L Bedside Glucose (Blood Gas) 174 H 65-95 MG/DL Bedside Ionized Calcium (Blood Gas) 1.39 H 1.15-1.33 MMOL/L Bedside Lactic Acid (Blood Gas) 1.55 H 0.36-0.75 MMOL/L Blood Gas Temperature 37.0 35.5-37.0 CELSIUS Blood Gas Respiration Rate 12.0 min. Blood Gas Vent Mode SIMV PS 10 ROOM AIR FiO2 100.0 % Blood Gas Tidal Volume 600 ml Blood Gas PEEP 5 cm H2O Blood Gas Specimen Comment BRII RN AL Whole Blood Glucose 167 H 70-110 MG/DL White Blood Count 4.9 4.8-10.8 K/uL Red Blood Count 4.44 L 4.50-6.20 MIL/uL Hemoglobin 13.8 L 14.0-18.0 g/dL Hematocrit 42.0 42-54 % Mean Corpuscular Volume 94.6 79-99 fL Mean Corpuscular Hemoglobin 31.1 27.0-33.0 pg Mean Corpuscular Hemoglobin Concent 32.9 32.0-36.0 g/dL Red Cell Distribution Width 13.1 11.0-15.5 % Platelet Count 162 130-400 K/uL Mean Platelet Volume 9.4 7.5-10.5 fL Immature Granulocyte % (Auto) 0.4 0-1 % Neutrophils (%) (Auto) 58.3 40.0-77.0 % Lymphocytes (%) (Auto) 29.3 21.0-51.0 % Monocytes (%) (Auto) 9.8 3.0-13.0 % Eosinophils (%) (Auto) 1.8 0.0-8.0 % Basophils (%) (Auto) 0.4 0.0-5.0 % Neutrophils # (Auto) 2.8 1.8-7.7 K/uL Lymphocytes # (Auto) 1.4 1.0-4.8 K/uL Monocytes # (Auto) 0.5 0.1-1.0 K/uL Eosinophils # (Auto) 0.09 0.00-0.70 K/uL Basophils # (Auto) 0.02 0.00-0.20 K/uL Absolute Immature Granulocyte (auto 0.02 0-1 K/uL Nucleated Red Blood Cells 0.0 0.0-0.19 % Prothrombin Time 10.7 9.6-11.6 SEC Prothromb Time International Ratio 0.99 0.85-1.15 Activated Partial Thromboplast Time 28.7 # 26.3-35.5 SEC Sodium Level 140 136-145 mmol/L Potassium Level 4.0 3.5-5.1 mmol/L Chloride Level 103 101-111 mmol/L Carbon Dioxide Level 29 21-32 mmol/L Blood Urea Nitrogen 20 H 7-18 mg/dL Creatinine 0.9 0.5-1.3 mg/dL Glomerular Filtration Rate Calc 105 >90 mL/min Random Glucose 132 H 70-105 mg/dL Total Calcium 8.7 8.5-10.1 mg/dL Total Bilirubin 0.5 0.2-1.0 mg/dL Aspartate Amino Transf (AST/SGOT) 20 10-37 U/L Alanine Aminotransferase (ALT/SGPT) 46 12-78 U/L Alkaline Phosphatase 73 50-136 U/L B-Type Natriuretic Peptide 8 0-100 pg/mL Total Protein 6.6 6.0-8.3 g/dL Albumin 3.2 L 3.5-5.0 g/dL Triglycerides Level 154 30-200 mg/dL Cholesterol Level 144 <200 mg/dL LDL Cholesterol 76 0-99 mg/dL HDL Cholesterol 48 29-71 mg/dL Bedside Glucose Comment Notified Nurse Test 04/19/24 03:33 Range/Units Phosphorus Level 3.9 2.5-4.9 mg/dL Magnesium Level 2.10 1.80-2.40 mg/dL Current Medications Medications (Trade) Dose Ordered Sig/Wes Route PRN Reason Start Time Stop Time Status Last Admin Dose Admin Acetaminophen (TYLenol 325MG TAB) 650 mg Q4H PRN PO Temp >38.3C(AFTER EXTUBATION) 04/20/24 10:00 05/20/24 09:59 Acetaminophen (TYLenol 325MG TAB) 650 mg Q6H PRN PO MILD PAIN (1-3) 04/17/24 22:00 05/17/24 21:59 04/17/24 22:59 650 MG Acetaminophen (TYLenol 650MG SUPPOSITORY) 650 mg Q4H PRN RC Temp >38.3C WHILE INTUBATED 04/20/24 10:00 05/20/24 09:59 Acetaminophen (acetaMINOPHEN) 1,000 mg Q6H6 IV 04/20/24 13:00 04/21/24 12:59 Albumin Human 250 ml @ 0 mls/hr AD PRN IV IF HEMODYNAMICALLY UNSTABLE 04/20/24 10:00 Aminocaproic Acid 36273 mg/Sodium Chloride 310 ml @ 25 mls/hr AD IV 04/20/24 10:00 04/20/24 10:42 DC Aminocaproic Acid 89943 mg/Sodium Chloride 480 ml @ 0 mls/hr AD PRN IV BLEEDING CONTROL 04/20/24 06:30 05/20/24 06:29 Aspirin (Aspirin 81mg Chew Tab) 81 mg DAILY PO 04/15/24 14:00 05/15/24 13:59 04/19/24 09:10 81 MG Atorvastatin Calcium (LIPItor 40MG) 40 mg HS PO 04/15/24 21:00 05/15/24 20:59 04/19/24 20:39 40 MG Calcium Gluconate 1 gm/Sodium Chloride 60 ml @ 200 mls/hr AD PRN IV HYPOCALCEMIA 04/20/24 10:00 05/20/24 09:59 Cefazolin Sodium (Ancef) 2 gm ONCALL PRN IVP SURGERY 04/19/24 14:30 04/20/24 10:55 DC Cefazolin Sodium (Ancef) 2 gm Q8H IVPB 04/20/24 15:00 04/21/24 07:01 Clopidogrel Bisulfate (plaVIX 75MG) 75 mg DAILY PO 04/15/24 14:00 04/15/24 18:27 DC 04/15/24 14:15 75 MG Dexmedetomidine/ Sodium Chloride (PRECEdex 400MCG/ 100ML-NS) 400 mcg PROTOCOL IV 04/20/24 10:00 04/21/24 09:59 Dextrose (D50w) 50 ml AD PRN IV HYPOGLYCEMIA PROTOCOL 04/20/24 10:00 05/20/24 09:59 Docusate Sodium (COLace 100MG CAP) 100 mg BID PO 04/20/24 21:00 05/20/24 20:59 Enoxaparin Sodium (Lovenox) 30 mg DAILY SQ 04/23/24 09:00 05/23/24 08:59 Epinephrine HCl 10 mg/Sodium Chloride 250 ml @ 12.438 mls/ hr AD PRN IV POST-OP CARDIOVASCULAR ORDERS 04/20/24 10:00 04/25/24 09:59 Epinephrine HCl 10 mg/Sodium Chloride 250 ml @ 0 mls/hr AD PRN IV TITRATE 04/20/24 06:30 04/20/24 10:55 DC Famotidine (Pepcid 20mg Vial) 20 mg BID IV 04/20/24 21:00 05/20/24 20:59 Famotidine (Pepcid 20mg Tab) 20 mg BID PO 04/15/24 21:00 04/20/24 09:50 DC 04/19/24 20:39 20 MG Furosemide (LASix 20MG TAB) 20 mg Q12H PO 04/22/24 09:00 05/22/24 08:59 Furosemide (LASix 20MG VIAL) 20 mg Q12H IV 04/21/24 09:00 04/22/24 08:59 Glucagon (Glucagon 1mg Kit) 1 mg AD PRN IM HYPOGLYCEMIA PROTOCOL 04/20/24 10:00 05/20/24 09:59 Heparin Sodium (Porcine) (HEParin 5,000 UNIT VIAL) *calculation based on ACTUAL B... AD PRN IV HEPARIN PROTOCOL 04/15/24 14:00 04/20/24 09:50 DC Heparin Sodium/ Dextrose 250 ml @ 0 mls/hr Q6H IV 04/15/24 14:00 04/20/24 09:50 DC 04/19/24 02:00 10.5 MLS/HR Hydralazine HCl (APRESOLine 20MG INJ) 10 mg Q6H PRN IV ADMINISTER FOR SBP > 160 04/15/24 14:00 04/20/24 09:50 DC Insulin Human Regular (humuLIN R 100 UNIT/ML 3ML) INSULIN SLIDING SCAL... ACHS SQ 04/15/24 16:30 04/20/24 09:50 DC Insulin Human Regular 100 unit/ Sodium Chloride 100 ml @ 0 mls/hr AD IV 04/20/24 10:00 04/22/24 09:59 Lactulose (Constulose 20gm/ 30ml Udcup) 20 gm BID PRN PO CONSTIPATION 04/20/24 10:00 05/20/24 09:59 Magnesium Hydroxide (Milk Of Magnesium 30ml) 30 ml DAILY PRN PO CONSTIPATION 04/20/24 10:00 05/20/24 09:59 Magnesium Sulfate 50 ml @ 12.5 mls/hr AD PRN IV MAG LEVEL LESS THAN 2.0 04/20/24 10:00 05/20/24 09:59 Magnesium Sulfate 50 ml @ 0 mls/hr PROTOCOL IV 04/15/24 14:00 04/20/24 09:50 DC Metoprolol Tartrate (loprESSOR) 12.5 mg BID PO 04/16/24 21:00 04/20/24 09:50 DC 04/20/24 05:24 12.5 MG Metoprolol Tartrate (loprESSOR) 12.5 mg BID PO 04/22/24 09:00 05/22/24 08:59 Metoprolol Tartrate (loprESSOR) 25 mg ONCE STAT PO 04/15/24 12:43 04/15/24 12:46 DC 04/15/24 12:52 25 MG Morphine Sulfate (morPHINE 2MG SYG) 0.5 mg Q2H PRN IV MODERATE PAIN (4-6) 04/20/24 10:00 04/21/24 09:59 Morphine Sulfate (morPHINE 2MG SYG) 1 mg Q2H PRN IV SEVERE PAIN (7-10) 04/20/24 10:00 04/21/24 09:59 Nitroglycerin (Nitrostat) 0.4 mg AD PRN SL CHEST PAIN 04/15/24 22:30 04/20/24 09:50 DC Nitroglycerin/ Dextrose 0 ml @ 0 mls/hr AD IV 04/20/24 10:00 04/23/24 09:59 Norepinephrine Bitartrate 250 ml @ 0 mls/hr AD PRN IV TITRATE 04/20/24 06:30 04/20/24 10:55 DC Norepinephrine Bitartrate 250 ml @ 0 mls/hr AD PRN IV POST-OP CARDIOVASCULAR ORDERS 04/20/24 11:00 05/20/24 10:59 Norepinephrine Bitartrate 8 mg/ Dextrose 250 ml @ 0 mls/hr AD PRN IV POST-OP CARDIOVASCULAR ORDERS 04/20/24 10:00 04/20/24 10:57 DC Ondansetron HCl (zoFRAN 4MG INJ) 4 mg Q6H PRN IV NAUSEA/VOMITING 04/20/24 10:00 05/20/24 09:59 Potassium Phosphate 250 ml @ 42 mls/hr AD PRN IV LOW PHOS LEVEL 04/20/24 10:00 05/20/24 09:59 Potassium Chloride 100 ml @ 100 mls/hr AD PRN IV POTASSIUM PROTOCOL 04/15/24 14:00 04/20/24 09:50 DC Potassium Chloride 100 ml @ 100 mls/hr AD PRN IV HYPOKALEMIA 04/20/24 10:00 05/20/24 09:59 Potassium Chloride (K-Dur/Klor-Con 20meq) 20 meq AD PRN PO POTASSIUM PROTOCOL 04/15/24 14:00 04/20/24 09:50 DC 04/15/24 14:14 20 MEQ Potassium Chloride (KCl 10% Elixir 20meq/15ml) 20 meq AD PRN PO POTASSIUM PROTOCOL 04/15/24 14:00 04/20/24 09:50 DC Propofol 100 ml @ 0 mls/hr AD PRN IV SEDATION 04/20/24 10:00 04/24/24 09:59 Sacubitril/ Valsartan (Entresto 24 Mg-26 Mg Tablet) 1 each BID PO 04/15/24 21:00 04/20/24 09:50 DC 04/19/24 20:39 1 EACH Sodium Bicarbonate (Sodium Bicarb 50meq 50ml Vial) 50 meq AD PRN IV OTHER[SEE DOSING INSTRUCTIONS] 04/20/24 10:00 04/23/24 09:59 Sodium Chloride 500 ml @ 0 mls/hr AD IV 04/20/24 10:00 05/20/24 09:59 Sodium Chloride 1,000 ml @ 10 mls/hr ONCE IV 04/20/24 10:00 04/21/24 09:59 Sodium Chloride (NS Flush 10ml) 10 ml Q8H PRN IVP IV LINE FLUSH 04/20/24 10:00 05/20/24 09:59 Tramadol HCl (UltRAM) 25 mg Q6H PRN PO MODERATE PAIN (4-6) 04/20/24 10:00 04/25/24 09:59 Tramadol HCl (UltRAM) 50 mg Q6H PRN PO SEVERE PAIN (7-10) 04/20/24 10:00 04/25/24 09:59 DIAGNOSTICS / RADIOLOGY: [ ] CHEST 1VW HISTORY: Post CABG COMPARISON: None FINDINGS: A frontal projection of the chest was obtained. Prominent interstitial markings are seen with possible superimposed infiltrates. Defibrillating pad is seen obscuring lung detail on the right. The heart is borderline enlarged. All the lines and tubes are again seen in place. No evidence of aortic calcification is seen. IMPRESSION: 1. Prominent interstitial markings are seen with possible superimposed infiltrates. ASSESSMENT: Acute Inferior wall acute STEMI, status post TNKase, 04/13/2024, POA Underlying history of coronary artery disease, POA Family history of premature coronary artery disease, POA Type 2 diabetes mellitus, POA Hypertension, POA Hyperlipidemia, POA PLAN: Patient remains admitted to the intensive care unit Continue telemetry monitoring Status post CABG today, tolerated procedure well Continue to follow Cardiothoracic input and recommendation Cardiology input noted and appreciated Weaned off ventilator as tolerated Continue with Lipitor, we will restart patient back on Entresto after procedure Continue with statin therapy with Lipitor 40 mg daily Sliding scale insulin a.c. and HS and basal Lantus based on blood glucose trend tonight, we will check a A1c All labs will be repeated in the morning GI prophylaxis with Pepcid, DVT prophylaxis with heparin at bedside, updated, all questions answered. Total time spent greater than 30 minutes. CARLEY HALL MD Apr 20, 2024 12:33
[2024-04-20] MEDS: morPHINE 2 MG SYG IV PRN (12:52)
[2024-04-20] MEDS: dexmedeTOMIDine 400MCG/NS100ML IV SCH (12:53)
[2024-04-20 12:54] LABS: HEMATOCRIT 37.9 % (42-54); MEAN CORPUSCULAR HEMOGLOBIN 30.8 pg (27.0-33.0); MEAN CORPUSCULAR HGB CONC 33.5 g/dL (32.0-36.0); RED BLOOD CELL COUNT(AUTO) 4.12 MIL/uL (4.50-6.20); RED CELL DISTRIBUTION WIDTH 13.1 % (11.0-15.5); WHITE BLOOD COUNT (AUTO) 10.2 K/uL (4.8-10.8)
[2024-04-20] MEDS ORDERED: dexmedeTOMIDine 400MCG/NS100ML IV SCH (13:00)
[2024-04-20] MEDS: acetaMINOPHEN 1,000 MG/100 ML VIAL IV SCH (13:01)
[2024-04-20] MEDS: ASPIRIN 81MG CHEW TAB NG ONE (13:01)
--- NOTE | 2024-04-20 13:03 | HMCIMG ---
CHEST 1VW HISTORY: Post CABG COMPARISON: None FINDINGS: A frontal projection of the chest was obtained. Prominent interstitial markings are seen with possible superimposed infiltrates. Defibrillating pad is seen obscuring lung detail on the right. The heart is borderline enlarged. All the lines and tubes are again seen in place. No evidence of aortic calcification is seen. IMPRESSION: 1. Prominent interstitial markings are seen with possible superimposed infiltrates.
--- NOTE | 2024-04-20 13:04 | HMCIMG ---
CHEST 1VW HISTORY: Post CABG COMPARISON: 04/20/2024 FINDINGS: A frontal projection of the chest was obtained. Prominent interstitial markings are seen with possible superimposed infiltrates. Defibrillator pack is seen overlying the right hemithorax limiting evaluation of lung contusions. The heart is borderline enlarged. All the lines and tubes are again seen in place. No evidence of aortic calcification is seen. IMPRESSION: 1. Prominent interstitial markings are seen with possible superimposed infiltrates.
[2024-04-20 13:07] LABS: CREATININE 0.9 mg/dL (0.5-1.3); PHOSPHORUS 4.5 mg/dL (2.5-4.9); POTASSIUM 4.7 mmol/L (3.5-5.1)
[2024-04-20 13:15] LABS: INR 1.06 (0.85-1.15); PROTHROMBIN TIME 11.4 SEC (9.6-11.6)
[2024-04-20 13:16] LABS: PARTIAL THROMBOPLASTIN TIME 24.4 SEC (26.3-35.5)
--- NOTE | 2024-04-20 13:22 | EKG ---
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: ileana : 1975 Requested By: SOFIE OLMOS Order Number: [id number] Reading MD: Juan Stapleton Measurements Intervals [place] Rate: 119 P: 61 ID: [id number] QRS: 4 QRSD: 98 T: 265 QT: 334 QTc: 470 Interpretive Statements Sinus tachycardia Repol abnrm suggests ischemia, diffuse leads Compared to ECG 04/15/2024 14:17:10 Early repolarization now present Possible ischemia now present Sinus rhythm no longer present Myocardial infarct finding no longer present Electronically Signed On 04-20-2024 19:55:48 PRODUCTION SERVICE MANAGER by Juan Stapleton Please click the below link to view image of tracing.
[2024-04-20 13:43] LABS: ABG BASE EXCESS -0.2 mmol/L (-2.0-3.0); ABG HCO3 22.3 mmol/L (21.0-28.0); ABG OXYGEN SATURATION 99.2 % (94.0-98.0); ABG PCO2 30 mmHg (35-48); ABG PH 7.485 (7.350-7.450); CARBON MONOXIDE 0.2 % (0.5-1.5); HHb 0.8; PO2, ARTERIAL BG 470.2 mmHg (83.0-108.0); VENT MODE, BG SIMV PS 10 (ROOM AIR)
--- NOTE | 2024-04-20 14:36 | NUR ---
NURSING NOTES PT VERY RESTLESS UPON ARRIVAL TO THE CV ROOM AFTER CABG SURGERY, ABDOMEN NOTICED TO BE DISTENDED, PT POINTING TO HIS BLADDER, UPON ARRIVAL TO CV, OR NURSE LAZARO POINTED OUT THAT PT HAD STATED PREVIOUSLY TO SURGERY THAT HE HAD HISTORY OF URETERAL RECONSTRUCTION THEREFORE IF HE REQUIRED A GANDARA CATHETER IT WOULD HAVE TO BE PLACED BY A UROLOGIST. PT RETURNED FROM OR WITH A CONDOM CATHETER WITH ABOUT 300 MLS IN THE GANDARA BAG BUT UPON SCANNING HIS BLADDER HE WAS FOUND TO HAVE 900MLS OF URINE. DR. OLMOS NOTIFIED, ORDERED TO CONSULT UROLOGY. PT'S UROLOGIST IS DR. ALLEN WHO IS CURRENTLY OUT ON VACATION. DR. SANTIAGO'S OFFICE WAS NOTIFIED, DR. SANTIAGO WAS MADE AWARE. MD IN HOSPITAL SHORTLY AFTER NOTIFYING HIM. OR TEAM WAS ALERTED BY DR. SANTIAGO AND THEY PICKED UP PT AT 1435.
[2024-04-20] MEDS ORDERED: FENTanyl CITRate PF 50 MCG/1 ML 5ML AMP IV ONE (14:37)
[2024-04-20] MEDS: MIDAZOLAM HCL 1 MG/ML 2ML VIAL ONE (14:45)
[2024-04-20] MEDS: MIDAZOLAM HCL 1 MG/ML 2ML VIAL IVP ONE (14:45)
[2024-04-20] MEDS ORDERED: phenylEPHRINE HCL 10 MG/ML 1ML VIAL IV ONE (14:52)
[2024-04-20] MEDS ORDERED: GLYCOPYRROLATE 0.2 MG/ML 5 ML VIAL ONE (15:14)
[2024-04-20 15:34] LABS: ABG HCO3 18.6 mmol/L (21.0-28.0); ABG OXYGEN SATURATION 98.6 % (94.0-98.0); ABG PCO2 38 mmHg (35-48); CARBON MONOXIDE 0.3 % (0.5-1.5); HHb 1.4; PO2, ARTERIAL BG 178.1 mmHg (83.0-108.0); VENT MODE, BG SIMV PS 10 (ROOM AIR)
--- NOTE | 2024-04-20 15:36 | HMCIMG ---
CYSTOGRAPHY 3+VWS REASON: Suprapubic catheter insertion. COMPARISON: None TECHNIQUE: Cystogram was performed by referring physician. FINDINGS: Please see procedure report by referring physician. IMPRESSION: Intraoperative films.
[2024-04-20] MEDS: SODIUM BICARB 50MEQ 50ML VIAL IV PRN (15:38)
[2024-04-20] MEDS: ceFAZolin SODIUM 2 GM VIAL IVPB SCH (15:38)
[2024-04-20] MEDS: INSULIN REGULAR, HUMAN 3ML 100 UNIT in 0.9%NACL 100ML 99 ML IV SCH (15:56)
--- NOTE | 2024-04-20 16:15 | NUR ---
NURSING NOTES PT RETURNED FROM OR, 12F GANDARA PLACED BY DR. SANTIAGO. PER MD DO NOT TOUCH GANDARA.
[2024-04-20 16:45] LABS: ABG BASE EXCESS -0.1 mmol/L (-2.0-3.0); ABG HCO3 22.7 mmol/L (21.0-28.0); ABG OXYGEN SATURATION 98.7 % (94.0-98.0); ABG PCO2 32 mmHg (35-48); ABG PH 7.474 (7.350-7.450); CARBON MONOXIDE 0.1 % (0.5-1.5); DEVICE COMMENT MILTON RN AL; HHb 1.3; PO2, ARTERIAL BG 216.5 mmHg (83.0-108.0); VENT MODE, BG SIMV PS 10 (ROOM AIR)
[2024-04-20] MEDS: PoTASSium chloRIDE 20MEQ/100ML 100 ML IV PRN (17:09)
[2024-04-20] MEDS: CALCIUM GLUC 1GM 1 GM in 0.9%NACL 50ML 50 ML IV PRN (17:10)
--- NOTE | 2024-04-20 18:50 | NUR ---
NURSING NOTES PT PASSED NIP AND VITAL CAPACITY TEST, NIP -[id number], VITAL CAPACITY 1053ML, PT ABLE TO MOVE ALL EXTREMITIES AND MAINTAIN HEAD LIFT, CURRENTLY WAITING ON RESP THERAPIST TO GET BLOOD GAS.
[2024-04-20 19:02] LABS: ABG BASE EXCESS -1.6 mmol/L (-2.0-3.0); ABG HCO3 20.1 mmol/L (21.0-28.0); ABG OXYGEN SATURATION 98.4 % (94.0-98.0); ABG PCO2 26 mmHg (35-48); ABG PH 7.511 (7.350-7.450); CARBON MONOXIDE 0.3 % (0.5-1.5); DEVICE COMMENT ALINE; HHb 1.6; PO2, ARTERIAL BG 154.7 mmHg (83.0-108.0); VENT MODE, BG SIMVPS10 (ROOM AIR)
--- NOTE | 2024-04-20 19:22 | CONS ---
[facility] CONSULTATION NOTE Date Patient Seen: Apr 20, 2024 Time of Visit: 19:22 Supervising Physician: Dr. Cj Trivedi Reason for Consultation: [facility] Primary Care Physician: Dr. Valentin Persaud Outpatient Specialists: NA Inpatient Consults: Dr. Trivedi, Dr. Lincoln PROBLEM LIST: Acute Inferior wall STEMI, status post TNKase, 04/13/2024, POA S/P LHC on 04/15/24 Multivessel CAD S/P CABG x2 MEDRANO to LAD and RSVG to PDA- on 04/[address] Enciso Acute on chronic urinary retention- history of ureteral stricture S/P IR suprapubic catheter placement 04/20 Underlying history of coronary artery disease, POA Family history of premature coronary artery disease, POA Type 2 diabetes mellitus, POA Hypertension, POA Hyperlipidemia, POA History of hypertension, diabetes mellitus, hyperlipidemia, urethroplasty due to ureteral stricture, MD with per cardiac stent HPI: This is a 49-year-old male with past medical history of hypertension, diabetes mellitus, hyperlipidemia who came to the hospital as a transfer from [facility] for chest pain on 04/15/2024. EKG showed STEMI then patient underwent a cardiac catheterization on the same day with findings of multivessel coronary artery disease. He was referred to CV surgery and he underwent coronary artery bypass graft surgery today. [facility] is consulted to help manage this patient in the critical care setting. Post CABG patient remained intubated fast-track extubation is underway but he underwent emergent suprapubic catheter insertion by IR because patient was found with urinary retention today given history of urethroplasty for urethral stricture. PAST MEDICAL HX: see above PAST SURGICAL HX: noncontributory SOCIAL HISTORY: No tobacco, ETOH, or illicit drug use Coded Allergies: avocado (Unverified Allergy, Severe, edema of neck, 04/15/24) banana (Unverified Allergy, Severe, ANAPHYLAXIS, 04/15/24) clindamycin (Unverified Allergy, Severe, ANAPHYLAXIS, 04/15/24) latex (Unverified Allergy, Severe, ANAPHYLAXIS, 04/15/24) watermelon (Unverified Allergy, Severe, ANAPHYLAXIS, 04/15/24) metformin (Unverified Adverse Reaction, Unknown, loose stool, 04/15/24) Uncoded Allergies: suxamethonium (Adverse Reaction, Unknown, 6//24) REVIEW OF SYSTEMS: 12 point ROS reviewed with patient. Pertinent positives mentioned above. Otherwise negative. PHYSICAL EXAM: GENERAL: Lethargic, post anesthesia care HEENT: EOMI, Sclera non icteric, moist mucosa NECK: Supple, no JVD, trachea midline LUNGS: Clear breath sounds bilaterally. No wheezes HEART: Regular rate and rhythm. Normal S1 and S2, without murmurs ABD: Abdomen soft, nontender. Bowel sounds present EXT: No clubbing cyanosis or edema NEURO: Moving all extremities, no unilateral weakness Vital Signs (last 8hr) Date Time Temp Pulse Resp B/P (MAP) Pulse Ox O2 Delivery O2 Flow Rate FiO2 04/20/24 18:17 122 16 116/68 (84) 100 94/73 (80) 04/20/24 18:15 125 22 118/69 (85) 98 04/20/24 18:02 128 21 82/50 (61) 100 83/54 (64) 04/20/24 18:00 126 23 98/58 (71) 99 04/20/24 17:47 133 20 93/56 (68) 98 96/64 (75) 04/20/24 17:45 128 15 109/65 (80) 99 04/20/24 17:45 100 Ventilator+ 0 40 04/20/24 17:32 128 18 98/60 (73) 100 95/62 (73) 04/20/24 17:30 131 10 102/59 (73) 99 04/20/24 17:17 122 13 103/62 (76) 99 96/62 (73) 04/20/24 17:15 126 20 102/62 (75) 98 04/20/24 17:02 120 16 116/64 (81) 100 108/66 (80) 04/20/24 17:00 125 28 118/66 (83) 99 04/20/24 16:47 124 23 101/63 (76) 98 104/60 (75) 04/20/24 16:45 128 22 91/57 (68) 100 04/20/24 16:32 125 19 100/60 (73) 99 96/62 (73) 04/20/24 16:30 125 13 95/58 (70) 99 04/20/24 16:17 128 20 102/64 (77) 100 103/72 (82) 04/20/24 16:15 126 17 102/59 (73) 100 04/20/24 16:02 99.3 122 23 121/67 (85) 100 110/72 (85) 04/20/24 16:00 125 26 120/67 (84) 100 04/20/24 15:48 127 60 04/20/24 14:00 98.1 128 94/56 (69) 99 60 04/20/24 13:47 126 17 91/55 (67) 99 91/59 (70) 04/20/24 13:46 60 04/20/24 13:45 125 20 94/56 (69) 98 04/20/24 13:32 123 13 96/63 (74) 99 90/70 (77) 04/20/24 13:30 126 24 100/75 (83) 99 04/20/24 13:30 100 Ventilator+ 0 100 04/20/24 13:17 124 18 112/74 (87) 100 120/68 (85) 04/20/24 13:15 121 14 108/72 (84) 100 04/20/24 13:02 115 12 119/77 (91) 100 111/80 (90) 04/20/24 13:00 97.9 115 12 121/78 (92) 100 100 04/20/24 12:22 100 100 LABS: Hematology Labs: Test 04/20/24 12:37 04/20/24 03:55 Range/Units White Blood Count 10.2 # 4.8-10.8 K/uL Red Blood Count 4.12 L 4.50-6.20 MIL/uL Hemoglobin 12.7 L 14.0-18.0 g/dL Hematocrit 37.9 L 42-54 % Mean Corpuscular Volume 92.0 79-99 fL Mean Corpuscular Hemoglobin 30.8 27.0-33.0 pg Mean Corpuscular Hemoglobin Concent 33.5 32.0-36.0 g/dL Red Cell Distribution Width 13.1 11.0-15.5 % Platelet Count 165 130-400 K/uL Mean Platelet Volume 9.7 7.5-10.5 fL Nucleated Red Blood Cells 0.0 0.0-0.19 % Immature Granulocyte % (Auto) 0.4 0-1 % Neutrophils (%) (Auto) 58.3 40.0-77.0 % Lymphocytes (%) (Auto) 29.3 21.0-51.0 % Monocytes (%) (Auto) 9.8 3.0-13.0 % Eosinophils (%) (Auto) 1.8 0.0-8.0 % Basophils (%) (Auto) 0.4 0.0-5.0 % Neutrophils # (Auto) 2.8 1.8-7.7 K/uL Lymphocytes # (Auto) 1.4 1.0-4.8 K/uL Monocytes # (Auto) 0.5 0.1-1.0 K/uL Eosinophils # (Auto) 0.09 0.00-0.70 K/uL Basophils # (Auto) 0.02 0.00-0.20 K/uL Absolute Immature Granulocyte (auto 0.02 0-1 K/uL Chemistry Labs: Test 04/20/24 18:06 04/20/24 12:37 04/20/24 03:55 04/19/24 16:16 Range/Units Whole Blood Glucose 244 H 70-110 MG/DL Sodium Level 145 136-145 mmol/L Potassium Level 4.7 3.5-5.1 mmol/L Chloride Level 110 101-111 mmol/L Carbon Dioxide Level 27 21-32 mmol/L Blood Urea Nitrogen 19 H 7-18 mg/dL Creatinine 0.9 0.5-1.3 mg/dL Glomerular Filtration Rate Calc 105 >90 mL/min Random Glucose 187 H 70-105 mg/dL Total Calcium 10.2 H 8.5-10.1 mg/dL Phosphorus Level 4.5 2.5-4.9 mg/dL Magnesium Level 2.00 1.80-2.40 mg/dL Total Bilirubin 0.5 0.2-1.0 mg/dL Aspartate Amino Transf (AST/SGOT) 20 10-37 U/L Alanine Aminotransferase (ALT/SGPT) 46 12-78 U/L Alkaline Phosphatase 73 50-136 U/L B-Type Natriuretic Peptide 8 0-100 pg/mL Total Protein 6.6 6.0-8.3 g/dL Albumin 3.2 L 3.5-5.0 g/dL Triglycerides Level 154 30-200 mg/dL Cholesterol Level 144 <200 mg/dL LDL Cholesterol 76 0-99 mg/dL HDL Cholesterol 48 29-71 mg/dL Bedside Glucose Comment Notified Nurse Coagulation Labs: Test 04/20/24 12:37 Range/Units Prothrombin Time 11.4 9.6-11.6 SEC Prothromb Time International Ratio 1.06 0.85-1.15 Activated Partial Thromboplast Time 24.4 L 26.3-35.5 SEC DIAGNOSTICS / RADIOLOGY RESULTS: [ ] PLAN NEURO: Minimize central acting medications as possible. Fall Precautions. Well lighted room through the day and minimize interruptions through the night to prevent acute delirium. PULMONARY: Supplemental 02 as needed Titrate Fio2 to keep Spo2 > or = 90% DuoNebs and CPT as needed IS hourly while awake for pulmonary hygiene Out of bed to chair as tolerated VAP Bundle Vent/BIPAP Settings: SIMV Will review simple PFT ABGs series Neb if needed CARDIOVASCULAR: Follow hemodynamics. Titrate vasopressor to keep MAP >65 or systolic blood pressure >95mmHg Post CABG care DRIPS: EPinephrine LINES: CVC GI & NUTRITION: Continue nutritional support Aspirations precautions Prokinetic agents and laxatives as needed KIDNEYS & ELECTROLYTES: Strict monitoring of intake and output Daily weights Avoid nephrotoxic agents Monitor electrolytes and replace as needed Goal urine output of 30mL/hr or 0.5mL/kg/hr ENDOCRINE: Maintain blood glucose between 100-180 at all times. Insulin sliding scale for blood glucose management INFECTIOUS DISEASE: Trend temperature. Agrawal-culture if febrile. Micro: NA Antibiotics: SCIP HEMATOLOGY & COAGULATION: Monitor H&H. Keep Hgb > 7 Transfuse 1 unit of PRBC for Hgb < 7 Transfuse 1 pack of platelets of platelets < 20, 000 Watch for any signs and symptoms of bleeding SKIN: Pressure ulcer prevention per facility protocol Rehab: PT/OT Prophylaxis: GI: Pepcid DVT: SCDs, AC per surgery Code Status: Full Resuscitation Disposition: ICU Other: Total patient care time exceeds 35 minutes excluding all procedures. Case was discussed and seen with my supervising physician. The above plan was formulated and agreed upon. JIMMY MURRAY [facility] Apr 20, 2024 19:22
[2024-04-20] MEDS: CALCIUM GLUC 1GM/10ML VIAL ONE (19:24)
[2024-04-20 20:20] LABS: ABG HCO3 23.2 mmol/L (21.0-28.0); ABG OXYGEN SATURATION 98.2 % (94.0-98.0); ABG PCO2 37 mmHg (35-48); ABG PH 7.418 (7.350-7.450); CARBON MONOXIDE 0 % (0.5-1.5); DEVICE COMMENT ALINE; HHb 1.8; PO2, ARTERIAL BG 142.6 mmHg (83.0-108.0); VENT MODE, BG SIMV,PS10 (ROOM AIR)
--- NOTE | 2024-04-20 20:24 | OP ---
DATE OF PROCEDURE: 04/20/2024 REFERRING PHYSICIAN: Salud Crocker MD SURGEON: Miguel Enciso MD ASSESSMENT DIRECTOR: Dheeraj. ANESTHESIA: Griffin. DISPOSITION: Stable. COMPLICATIONS: None. CROSSCLAMP TIME: 21 minutes. PUMP TIME: 28. INDICATIONS FOR PROCEDURE: This is a patient of Dr. Tc Crocker that presented with acute myocardial ischemia. The patient underwent a cardiac catheterization, was treated with TPA for acute GA. CT angiogram demonstrated an intramural right coronary artery originated from the left sinus of Valsalva underneath the commissure between the right and left. The patient also had a PDA lesion of 60% and LAD lesion of about 60-70%. I had the opportunity to review the films, examine the patient, and I have discussed the case with Dr. Crocker. We both agree surgery is indicated and we have recommended. We will plan to proceed with unroofing of right coronary artery and bypass of PDA and LAD. The patient understands the indications for surgery as well as the potential complications of the operation including but not limited to postoperative bleeding, infection, stroke and/or . He understands and would like to proceed with surgery. FINDINGS AT TIME OF SURGERY: An intramural coronary underneath the commissure between the left and right was identified and unroofed without detaching the commissure. The postoperative transesophageal echocardiogram demonstrates no aortic insufficiency and the EKG is isoelectric. IMPLANTS: Three MELODY plates with eighteen #16 gauge screws. DRAINS: A #32 mediastinal and #19 left-sided Sherman. BLOOD UTILIZATION: None. DESCRIPTION OF PROCEDURE IN DETAIL: With the patient in supine position after adequate induction of general endotracheal anesthesia, preoperative intravenous antibiotics, percutaneous arterial and venous lines, chest entered through a mid sternotomy, simultaneous harvesting of the left internal mammary artery from anterior left chest wall, greater saphenous vein from the left lower extremity using endoscopic technique. The patient was systemically heparinized and the mammary artery from chest in preparation for bypass. Chest retractor was placed. Utilizing mechanical stabilizer and 4-prong tourniquet for vascular control, 2 distal anastomoses performed between the MEDRANO and LAD and reverse saphenous vein graft and PDA. Pursestrings were placed in the ascending aorta, right atrium and pulmonary artery. The patient was fully heparinized and cardiopulmonary bypass established with clear prime and maintained at normothermia. Aortic cross-clamp followed by a 800 mL of [place] cardioplegia. Transverse aortotomy exploration ____ root including the left main coronary artery disease as well as the right, the right was coming superiorly to the left and underneath the commissure between the left and right. The intramural portion of the coronary was unroofed. The MEDRANO was anastomosed to the LAD and the PDA graft was anastomosed to the PDA artery just distal to the takeoff. Heartstring device was utilized to perform the proximal anastomosis. Once the orifice is identified and unroofed, a 3 mm probe was easily passed through it and the commissure of the aortic valve ____ firm and there was no aortic insufficiency. Double layer closure of the aorta, de-airing of the heart and crossclamp was removed. The patient systemically reperfused with a mammary artery. There was no aortic closure. The crossclamp was removed and the patient was systemically reperfused. After 28 minutes, the patient was weaned from cardiopulmonary bypass without any difficulty. Hemostasis achieved, two chest drains, cannulas removed, pursestring securely tied, protamine given. Stainless steel wires for the sternum, open reduction and internal fixation utilizing three MELODY plates and eighteen #16 gauge screws, #1 Vicryl and 3-0 Monocryl for closure. The patient was transferred in stable condition to the ICU. TID: [id number] RECEIPT: [id number]
[2024-04-20 22:31] LABS: ABG BASE EXCESS -0.5 mmol/L (-2.0-3.0); ABG HCO3 23.8 mmol/L (21.0-28.0); ABG OXYGEN SATURATION 97.7 % (94.0-98.0); ABG PCO2 38 mmHg (35-48); ABG PH 7.415 (7.350-7.450); CARBON MONOXIDE 0 % (0.5-1.5); DEVICE COMMENT ALINE; HHb 2.3; PO2, ARTERIAL BG 116.2 mmHg (83.0-108.0); VENT MODE, BG CAM (ROOM AIR)
[2024-04-20] MEDS: FAMOTIDINE 20MG VIAL IV SCH (22:37)
[2024-04-20] MEDS: doCUSate SODIUM 100 MG CAP PO SCH (22:37)
[2024-04-20] MEDS: traMADol HCL 50 MG TABLET PO PRN (22:38)
[2024-04-20] MEDS: 0.9%NACL 1000ML 1,000 ML IV SCH (22:46)
--- NOTE | 2024-04-20 22:59 | NUR ---
EXTUBATED PATIENT EXTUBATED AT APPROXIMATELY 2054 PER ICU/CVR WEANING AND EXTUBATION PROTOCOL. PATIENT ALERT AND FOLLOWS COMMANDS, ABG WITHIN NORMAL LIMITS, NIF -23, VITAL CAPACITY 1400. EDUCATED PATIENT CANNOT TALK AND NPO FOR NOW. PATIENT NODDED HEAD YES IN UNDERSTANDING. PATIENT EXTUBATED TOLERATED WELL AND PLACE ON AEROSOL MASK WITH HUMIDIFIER 10L 40%. O2 SATURATION 99%.
[2024-04-21] VITALS (96 sets, daily range): BP systolic 89–139; BP diastolic 46–77; PULSE 100–129; RESP 5–59; TEMP 98.1–99.1; O2SAT 98–100
[2024-04-21] MEDS: NOREPINEPHRIN 8MG/250ML NS 250 ML IV PRN (00:35)
[2024-04-21 01:03] LABS: MAGNESIUM 1.8 mg/dL (1.80-2.40); POTASSIUM 4.6 mmol/L (3.5-5.1)
[2024-04-21] MEDS: CALCIUM GLUC 1GM/10ML VIAL ONE (01:03)
[2024-04-21] MEDS: MAGNESIUM 2GM PREMIX 50ML 50 ML IV PRN (01:33)
[2024-04-21 03:51] LABS: BASOPHILS # (AUTO) 0.02 K/uL (0.00-0.20); BASOPHILS % (AUTO) 0.2 % (0.0-5.0); HEMATOCRIT 32.7 % (42-54); IMMATURE GRANULOCYTE ABSOLUTE 0.06 K/uL (0-1); LYMPHOCYTES # (AUTO) 1.4 K/uL (1.0-4.8); LYMPHOCYTES % (AUTO) 11.3 % (21.0-51.0); MEAN CORPUSCULAR HGB CONC 32.7 g/dL (32.0-36.0); MEAN CORPUSCULAR VOLUME 94.8 fL (79-99); MONOCYTES # (AUTO) 1.7 K/uL (0.1-1.0); MONOCYTES % (AUTO) 13.7 % (3.0-13.0); NEUTROPHILS % (AUTO) 74.3 % (40.0-77.0); PLATELET COUNT (AUTO) 184 K/uL (130-400); RED BLOOD CELL COUNT(AUTO) 3.45 MIL/uL (4.50-6.20); RED CELL DISTRIBUTION WIDTH 13.7 % (11.0-15.5); WHITE BLOOD COUNT (AUTO) 12.2 K/uL (4.8-10.8)
[2024-04-21 04:05] LABS: INR 1.1 (0.85-1.15); PROTHROMBIN TIME 11.8 SEC (9.6-11.6)
[2024-04-21 04:07] LABS: PARTIAL THROMBOPLASTIN TIME 29.4 SEC (26.3-35.5)
[2024-04-21 04:21] LABS: ABG BASE EXCESS 1.1 mmol/L (-2.0-3.0); ABG OXYGEN SATURATION 97.3 % (94.0-98.0); ABG PCO2 42 mmHg (35-48); ABG PH 7.407 (7.350-7.450); CARBON MONOXIDE 0.1 % (0.5-1.5); DEVICE COMMENT ALINE; HHb 2.7; PO2, ARTERIAL BG 122.3 mmHg (83.0-108.0); VENT MODE, BG CAM (ROOM AIR)
[2024-04-21 04:28] LABS: CREATININE 0.9 mg/dL (0.5-1.3); MAGNESIUM 2.2 mg/dL (1.80-2.40); POTASSIUM 4.3 mmol/L (3.5-5.1)
--- NOTE | 2024-04-21 06:49 | NUR ---
TRANSFER PATIENT TRANSFERED FROM ROOM 214 TO ROOM 208
--- NOTE | 2024-04-21 07:45 | HMCIMG ---
CHEST 1VW HISTORY: Post CABG COMPARISON: 04/20/2024 FINDINGS: A frontal projection of the chest was obtained. Mild bilateral pulmonary infiltrates are seen may be related to mild pulmonary vascular congestion with possible superimposed pneumonitis. Poststernotomy changes are seen. The heart is enlarged. Degenerative changes of the thoracolumbar spine are present. Endotracheal tube and nasogastric tube have been. All the lines and tubes are again seen in place. No evidence of aortic calcification is seen. IMPRESSION: 1. Mild bilateral pulmonary infiltrates are seen may be related to mild pulmonary vascular congestion with possible superimposed pneumonitis. Postop changes.
[2024-04-21] MEDS: furoSEMIDE 20MG VIAL IV SCH (08:03)
[2024-04-21] MEDS: ALBUMIN (HUMAN) 5% 250 ML IV PRN (08:04)
--- NOTE | 2024-04-21 08:44 | PN ---
[facility] CARDIOLOGY PROGRESS NOTE Date Patient Seen: Apr 21, 2024 Time of Visit: 08:41 Interval History: [ S/p CABG x2, MEDRANO to LAD and unroofing of the RCA 04/20/2024.] Physical Examination: GENERAL: [No acute distress.] HEAD: [Normal with no signs of head trauma.] EYES: [PERRLA, EOMI, conjunctiva and sclera normal.] ENT: [Hearing grossly intact, normal oropharynx.] NECK: [Supple without JVD. There is no tenderness, lymphadenopathy, or masses. No thyromegaly. Normal carotid upstrokes without bruits.] LUNGS: [Clear breath sounds bilaterally. There are right basilar rales one third of the way up the chest. No wheezes, or rhonchi.] HEART: [Normal rate and rhythm. Normal S1 and S2 without mumurs, gallop or rub.] VASC: [Peripheral pulses +2 bilaterally.] ABD: [Bowel sounds normal, soft, nontender, no masses, no organomegaly. No audible bruits.] : [Not examined] LYMPH: [No lymphadenopathy noted.] EXT: [No clubbing, cyanosis or edema.] SKIN: [No rashes or lesions noted.] NEURO: [Awake, alert, and oriented x3. No focal sensory or strength deficits noted.] Laboratory: [ ] Hematology Labs: Test 04/21/24 03:35 Range/Units White Blood Count 12.2 H 4.8-10.8 K/uL Red Blood Count 3.45 L 4.50-6.20 MIL/uL Hemoglobin 10.7 L 14.0-18.0 g/dL Hematocrit 32.7 L 42-54 % Mean Corpuscular Volume 94.8 79-99 fL Mean Corpuscular Hemoglobin 31.0 27.0-33.0 pg Mean Corpuscular Hemoglobin Concent 32.7 32.0-36.0 g/dL Red Cell Distribution Width 13.7 11.0-15.5 % Platelet Count 184 130-400 K/uL Mean Platelet Volume 9.7 7.5-10.5 fL Immature Granulocyte % (Auto) 0.5 0-1 % Neutrophils (%) (Auto) 74.3 40.0-77.0 % Lymphocytes (%) (Auto) 11.3 L 21.0-51.0 % Monocytes (%) (Auto) 13.7 H 3.0-13.0 % Eosinophils (%) (Auto) 0.0 0.0-8.0 % Basophils (%) (Auto) 0.2 0.0-5.0 % Neutrophils # (Auto) 9.0 H 1.8-7.7 K/uL Lymphocytes # (Auto) 1.4 1.0-4.8 K/uL Monocytes # (Auto) 1.7 H 0.1-1.0 K/uL Eosinophils # (Auto) 0.00 0.00-0.70 K/uL Basophils # (Auto) 0.02 0.00-0.20 K/uL Absolute Immature Granulocyte (auto 0.06 0-1 K/uL Nucleated Red Blood Cells 0.0 0.0-0.19 % Chemistry Labs: Test 04/21/24 07:53 04/21/24 03:35 04/20/24 03:55 04/19/24 16:16 Range/Units Whole Blood Glucose 114 H 70-110 MG/DL Sodium Level 150 H 136-145 mmol/L Potassium Level 4.3 3.5-5.1 mmol/L Chloride Level 114 H 101-111 mmol/L Carbon Dioxide Level 28 21-32 mmol/L Blood Urea Nitrogen 15 7-18 mg/dL Creatinine 0.9 0.5-1.3 mg/dL Glomerular Filtration Rate Calc 105 >90 mL/min Random Glucose 115 H 70-105 mg/dL Total Calcium 8.9 8.5-10.1 mg/dL Ionized Calcium 1.19 1.16-1.32 MMOL/L Phosphorus Level 4.0 2.5-4.9 mg/dL Magnesium Level 2.20 1.80-2.40 mg/dL Total Bilirubin 0.5 0.2-1.0 mg/dL Aspartate Amino Transf (AST/SGOT) 20 10-37 U/L Alanine Aminotransferase (ALT/SGPT) 46 12-78 U/L Alkaline Phosphatase 73 50-136 U/L B-Type Natriuretic Peptide 8 0-100 pg/mL Total Protein 6.6 6.0-8.3 g/dL Albumin 3.2 L 3.5-5.0 g/dL Triglycerides Level 154 30-200 mg/dL Cholesterol Level 144 <200 mg/dL LDL Cholesterol 76 0-99 mg/dL HDL Cholesterol 48 29-71 mg/dL Bedside Glucose Comment Notified Nurse Coagulation Labs: Test 04/21/24 03:35 Range/Units Prothrombin Time 11.8 H 9.6-11.6 SEC Prothromb Time International Ratio 1.10 0.85-1.15 Activated Partial Thromboplast Time 29.4 26.3-35.5 SEC Fibrinogen 444 H 180-350 mg/dL Diagnostics / Radiology: [Copy/Paste Echos/Imaging Report here] Impression and Plan: [ Acute Inferior wall acute STEMI, status post TNKase, 04/13/2024, POA Underlying history of coronary artery disease, POA Family history of premature coronary artery disease, POA Type 2 diabetes mellitus, POA Hypertension, POA Hyperlipidemia, POA S/P CABG x2 MEDRANO to LAD and RSVG to PDA- on 04/[address] 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 Salud Crocker MD ] SALUD CROCKER MD Apr 21, 2024 08:44
--- NOTE | 2024-04-21 09:47 | PN ---
[facility] PROGRESS NOTE Date Patient Seen: Apr 21, 2024 Time of Visit: 09:47 Supervising Physician: Bunny Rogers MD Primary Care Physician: Dr. Valentin Persaud Outpatient Specialists: NA Inpatient Consults: Dr. Trivedi, Dr. Lincoln PROBLEM LIST: Acute Inferior wall STEMI, status post TNKase, 04/13/2024, POA S/P LHC on 04/15/24 Multivessel CAD S/P CABG x2 MEDRANO to LAD and RSVG to PDA- on 04/[address] Olmos Acute on chronic urinary retention- history of ureteral stricture S/P IR suprapubic catheter placement 04/20 Underlying history of coronary artery disease, POA Family history of premature coronary artery disease, POA Type 2 diabetes mellitus, POA Hypertension, POA Hyperlipidemia, POA History of hypertension, diabetes mellitus, hyperlipidemia, urethroplasty due to ureteral stricture, MD with per cardiac stent INTERVAL HISTORY: 04/21/24-day 1. status post CABG x2. As per RN overnight patient had to get emergently a suprapubic fc per cystoscopy by Dr. Duggan due to history of urinary stricture and urinary retention. weaning off Levophed currently at 7 micrograms/minute and epinephrine at 0.01 micrograms/kilogram per minute. Patient is calm cooperative awake alert and oriented x3 sitting up on hospital bed. No major complaints other than incisional tenderness with movement and cough. Patient and sinus tachycardia 113 beats per minute, respiratory rate of 20 blood pressure improving 125/61 with a map of 82 we will continue to wean down pressors per CV protocol O2 sat 99% with 2 L via nasal cannula on chest x- ray with increased pulmonary vascular congestion patient was given a dose of Lasix this morning per Cardiology and continues with scheduled doses of Lasix tomorrow morning. On WBCs 12.2 as expected postop H&H of 10.7/32.7 platelet count is normal. Kidneys are doing well with the creatinine of 0.9 GFR of 105 sodium 150 potassium 4.3 chloride 114. Patient is starting clear liquid diet today. REVIEW OF SYSTEMS: 12 point ROS reviewed with patient. Pertinent positives mentioned above. Otherwise negative. PHYSICAL EXAM: GENERAL: Awake alert and oriented x3 HEENT: EOMI, Sclera non icteric, moist mucosa NECK: Supple, no JVD, trachea midline LUNGS: crackles breath sounds bilaterally. No wheezes chest tube HEART: Regular rate and rhythm. Normal S1 and S2, without murmurs ABD: Abdomen soft, nontender. Bowel sounds present EXT: No clubbing cyanosis or edema NEURO: Moving all extremities, no unilateral weakness Vital Signs (last 8hr) Date Time Temp Pulse Resp B/P (MAP) Pulse Ox O2 Delivery O2 Flow Rate FiO2 04/21/24 09:34 117 20 N/Cannula Low lpm 3.0 32 04/21/24 08:18 111 16 126/59 (81) 98 102/69 (80) 04/21/24 08:15 109 123/60 (81) 98 04/21/24 08:02 104 129/60 (83) 98 121/76 (91) 04/21/24 08:00 111 24 114/59 (77) 98 04/21/24 07:47 108 110/55 (73) 98 103/62 (76) 04/21/24 07:45 110 21 108/54 (72) 98 04/21/24 07:32 105 107/53 (71) 98 97/58 (71) 04/21/24 07:30 109 12 104/50 (68) 98 04/21/24 07:17 114 7 105/57 (73) 91 105/62 (76) 04/21/24 07:15 115 15 107/57 (74) 97 04/21/24 07:02 99.0 112 6 112/59 (76) 97 112/60 (77) 04/21/24 07:00 112 25 114/59 (77) 97 106/64 (78) 04/21/24 06:45 117 15 112/58 (76) 96 04/21/24 06:35 116 14 N/Cannula Low lpm 5.0 28 04/21/24 06:17 121 29 116/59 (78) 94 04/21/24 06:02 119 15 112/58 (76) 99 04/21/24 05:47 119 9 110/59 (76) 99 04/21/24 05:32 117 17 129/67 (87) 100 125/68 (87) 04/21/24 05:18 116 59 133/64 (87) 100 130/71 (90) 04/21/24 05:02 113 9 139/66 (90) 97 125/76 (92) 04/21/24 04:47 108 23 130/64 (86) 98 126/76 (93) 04/21/24 04:32 112 24 117/60 (79) 100 115/74 (88) 04/21/24 04:17 109 22 111/56 (74) 99 111/65 (80) 04/21/24 04:02 98.1 114 23 113/56 (75) 100 112/64 (80) 04/21/24 04:00 100 Aerosol Mask+ 10 40 04/21/24 03:47 107 18 106/54 (71) 99 101/61 (74) 04/21/24 03:32 113 24 108/54 (72) 94 107/60 (76) 04/21/24 03:17 106 18 108/55 (72) 100 108/61 (77) 04/21/24 03:02 108 18 100/50 (67) 100 101/56 (71) 04/21/24 02:47 116 23 101/55 (70) 99 103/72 (82) 04/21/24 02:32 109 17 100/52 (68) 100 99/59 (72) 04/21/24 02:17 121 23 98/53 (68) 99 114/77 (89) 04/21/24 02:02 118 19 99/54 (69) 99 97/66 (76) LABS: Hematology Labs: Test 04/21/24 03:35 Range/Units White Blood Count 12.2 H 4.8-10.8 K/uL Red Blood Count 3.45 L 4.50-6.20 MIL/uL Hemoglobin 10.7 L 14.0-18.0 g/dL Hematocrit 32.7 L 42-54 % Mean Corpuscular Volume 94.8 79-99 fL Mean Corpuscular Hemoglobin 31.0 27.0-33.0 pg Mean Corpuscular Hemoglobin Concent 32.7 32.0-36.0 g/dL Red Cell Distribution Width 13.7 11.0-15.5 % Platelet Count 184 130-400 K/uL Mean Platelet Volume 9.7 7.5-10.5 fL Immature Granulocyte % (Auto) 0.5 0-1 % Neutrophils (%) (Auto) 74.3 40.0-77.0 % Lymphocytes (%) (Auto) 11.3 L 21.0-51.0 % Monocytes (%) (Auto) 13.7 H 3.0-13.0 % Eosinophils (%) (Auto) 0.0 0.0-8.0 % Basophils (%) (Auto) 0.2 0.0-5.0 % Neutrophils # (Auto) 9.0 H 1.8-7.7 K/uL Lymphocytes # (Auto) 1.4 1.0-4.8 K/uL Monocytes # (Auto) 1.7 H 0.1-1.0 K/uL Eosinophils # (Auto) 0.00 0.00-0.70 K/uL Basophils # (Auto) 0.02 0.00-0.20 K/uL Absolute Immature Granulocyte (auto 0.06 0-1 K/uL Nucleated Red Blood Cells 0.0 0.0-0.19 % Chemistry Labs: Test 04/21/24 07:53 04/21/24 03:35 04/20/24 03:55 04/19/24 16:16 Range/Units Whole Blood Glucose 114 H 70-110 MG/DL Sodium Level 150 H 136-145 mmol/L Potassium Level 4.3 3.5-5.1 mmol/L Chloride Level 114 H 101-111 mmol/L Carbon Dioxide Level 28 21-32 mmol/L Blood Urea Nitrogen 15 7-18 mg/dL Creatinine 0.9 0.5-1.3 mg/dL Glomerular Filtration Rate Calc 105 >90 mL/min Random Glucose 115 H 70-105 mg/dL Total Calcium 8.9 8.5-10.1 mg/dL Ionized Calcium 1.19 1.16-1.32 MMOL/L Phosphorus Level 4.0 2.5-4.9 mg/dL Magnesium Level 2.20 1.80-2.40 mg/dL Total Bilirubin 0.5 0.2-1.0 mg/dL Aspartate Amino Transf (AST/SGOT) 20 10-37 U/L Alanine Aminotransferase (ALT/SGPT) 46 12-78 U/L Alkaline Phosphatase 73 50-136 U/L B-Type Natriuretic Peptide 8 0-100 pg/mL Total Protein 6.6 6.0-8.3 g/dL Albumin 3.2 L 3.5-5.0 g/dL Triglycerides Level 154 30-200 mg/dL Cholesterol Level 144 <200 mg/dL LDL Cholesterol 76 0-99 mg/dL HDL Cholesterol 48 29-71 mg/dL Bedside Glucose Comment Notified Nurse Coagulation Labs: Test 04/21/24 03:35 Range/Units Prothrombin Time 11.8 H 9.6-11.6 SEC Prothromb Time International Ratio 1.10 0.85-1.15 Activated Partial Thromboplast Time 29.4 26.3-35.5 SEC Fibrinogen 444 H 180-350 mg/dL DIAGNOSTICS / RADIOLOGY RESULTS: IMAGING REPORT Signed PATIENT: CELE MAGDALENO MR#: [id number] : 1975 SEX: M AGE: 49 LOCATION: 2B ORDER 2300 STATUS: ADM IN REPORT#: [id number] SERVICE 0400 REASON: s/p CABG ORDERING PHYSICIAN: SOFIE OLMOS MD PROCEDURE: CXR1VW - CHEST 1VW CHEST 1VW HISTORY: Post CABG COMPARISON: 04/20/2024 FINDINGS: A frontal projection of the chest was obtained. Mild bilateral pulmonary infiltrates are seen may be related to mild pulmonary vascular congestion with possible superimposed pneumonitis. Poststernotomy changes are seen. The heart is enlarged. Degenerative changes of the thoracolumbar spine are present. Endotracheal tube and nasogastric tube have been. All the lines and tubes are again seen in place. No evidence of aortic calcification is seen. IMPRESSION: 1. Mild bilateral pulmonary infiltrates are seen may be related to mild pulmonary vascular congestion with possible superimposed pneumonitis. Postop changes. DICTATED BY: RALPH TRIPATHI MD DATE: 04/21/2441 ELECTRONICALLY SIGNED BY: RALPH TRIPATHI MD DATE: 04/21/2445 PLAN NEURO: Minimize central acting medications as possible. Fall Precautions. Well lighted room through the day and minimize interruptions through the night to prevent acute delirium. PULMONARY: Supplemental 02 as needed Titrate Fio2 to keep Spo2 > or = 90% DuoNebs and CPT as needed IS hourly while awake for pulmonary hygiene Out of bed to chair as tolerated VAP Bundle Vent/BIPAP Settings: SIMV Will review simple PFT ABGs series Neb if needed CARDIOVASCULAR: Follow hemodynamics. Titrate vasopressor to keep MAP >65 or systolic blood pressure >95mmHg Post CABG care DRIPS: Epinephrine levophed LINES: CVC GI & NUTRITION: Continue nutritional support Aspirations precautions Prokinetic agents and laxatives as needed KIDNEYS & ELECTROLYTES: Strict monitoring of intake and output Daily weights Avoid nephrotoxic agents Monitor electrolytes and replace as needed Goal urine output of 30mL/hr or 0.5mL/kg/hr ENDOCRINE: Maintain blood glucose between 100-180 at all times. Insulin sliding scale for blood glucose management INFECTIOUS DISEASE: Trend temperature. Agrawal-culture if febrile. Micro: NA Antibiotics: SCIP HEMATOLOGY & COAGULATION: Monitor H&H. Keep Hgb > 7 Transfuse 1 unit of PRBC for Hgb < 7 Transfuse 1 pack of platelets of platelets < 20, 000 Watch for any signs and symptoms of bleeding SKIN: Pressure ulcer prevention per facility protocol Rehab: PT/OT Prophylaxis: GI: Pepcid DVT: SCDs, AC per surgery Code Status: Full Resuscitation Disposition: ICU Other: Total patient care time exceeds 35 minutes excluding all procedures. Case was discussed and seen with my supervising physician. The above plan was formulated and agreed upon. ENRIQUE KOHLER [facility] Apr 21, 2024 09:47
[2024-04-21] MEDS: traMADol HCL 50 MG TABLET PO PRN (10:15)
--- NOTE | 2024-04-21 12:04 | PN ---
[facility] PROGRESS NOTE Date of Service: Apr 21, 2024 Time of Service: 12:04 SUBJECTIVE: 04/17 patient seen at bedside, no acute events overnight. Patient has been evaluated by Cardiology and a coronary CTA was performed, they are recommending cardio vascular surgery recommendations. He is likely to be taken do surgery tomorrow, we will follow up with CV surgery. Vitals and labs are relatively unremarkable. 04/18 patient seen at bedside, no acute events overnight. Pending CABG with CV surgery today, we will follow up postprocedure. Vitals and labs are relatively unremarkable. 04/19 patient seen at bedside, no acute events overnight. CABG rescheduled for Saturday. Vitals and labs are relatively unremarkable. 04/20 patient is seen and examined today during my rounding, he is now in the ICU, intubated, mechanical ventilation, status post CABG by Cardiothoracic surgeon today. Tolerated procedure well. at bedside, updated. 04/21 the patient has been seen and examined during my rounding, the patient is successfully extubated, on supplemental oxygen via nasal cannula saturating 98%, hemodynamically stable, BP 104/54, afebrile. He is tolerating clear liquid, denied chest pain, no shortness a breath, no nausea, no vomiting. Currently the patient on low-dose epinephrine, low-dose Levophed, on insulin drip. Chest tube in place. REVIEW OF SYSTEMS 12 point review of systems negative unless noted in HPI PHYSICAL EXAM GENERAL APPEARANCE: Patient is intubated, on mechanical ventilation. NEUROLOGICAL: Cranial nerves II-XII grossly intact. Motor is 5/5 in bilateral upper and lower extremities proximal to distal. No sensory deficits. HEENT: Face is symmetric. Pupils are equal and reactive. Extraocular movements are intact. NECK: Supple. No JVD. No thyromegaly. No submental, submandibular, pre- /postauricular, occipital or supraclavicular lymphadenopathy. CHEST: Normal chest expansion. No Telemetry. LUNGS: Absence of any rales, rhonchi or any wheezing. CARDIOVASCULAR: Regular. S1 and S2 normal. No appreciable rubs, murmurs or gallops. ABDOMEN: Soft, nontender, and nondistended. There is no rebound, voluntary guarding, or rigidity. : Deferred. No [place]. EXTREMITIES: Non-edematous and not cyanotic. No clubbing. Good capillary refill. SKIN: No skin breakdown. Vital Signs (last 8hr) Date Time Temp Pulse Resp B/P (MAP) Pulse Ox O2 Delivery O2 Flow Rate FiO2 04/21/24 11:02 109 21 104/54 (71) 98 95/55 (68) 04/21/24 11:00 100 Aerosol Mask+ 10 40 04/21/24 11:00 99.0 106 21 105/55 (72) 98 04/21/24 10:48 117 25 109/54 (72) 99 105/63 (77) 04/21/24 10:45 118 123/57 (79) 98 04/21/24 10:32 113 112/58 (76) 98 108/60 (76) 04/21/24 10:30 120 109/57 (74) 97 04/21/24 10:17 107 16 114/56 (75) 99 97/63 (74) 04/21/24 10:15 108 10 114/56 (75) 99 04/21/24 10:02 116 23 121/62 (81) 99 109/66 (80) 04/21/24 10:00 115 22 117/59 (78) 98 04/21/24 09:56 04/21/24 09:34 117 20 N/Cannula Low lpm 3.0 32 04/21/24 09:32 116 25 125/61 (82) 99 114/63 (80) 04/21/24 09:30 112 24 125/59 (81) 98 04/21/24 09:17 118 30 118/61 (80) 97 125/72 (89) 04/21/24 09:15 116 25 131/60 (83) 98 04/21/24 09:02 119 26 118/59 (78) 93 111/68 (82) 04/21/24 09:00 118 22 130/61 (84) 93 04/21/24 08:47 127 13 112/59 (76) 91 99/70 (80) 04/21/24 08:45 119 29 125/57 (79) 94 04/21/24 08:32 112 5 127/63 (84) 97 109/68 (82) 04/21/24 08:30 107 13 134/62 (86) 98 04/21/24 08:18 111 16 126/59 (81) 98 102/69 (80) 04/21/24 08:18 111 16 126/59 (81) 98 102/69 (80) 04/21/24 08:15 109 123/60 (81) 98 04/21/24 08:15 109 123/60 (81) 98 04/21/24 08:02 104 129/60 (83) 98 121/76 (91) 04/21/24 08:00 111 24 114/59 (77) 98 04/21/24 08:00 100 Aerosol Mask+ 10 40 04/21/24 07:47 108 110/55 (73) 98 103/62 (76) 04/21/24 07:45 110 21 108/54 (72) 98 04/21/24 07:32 105 107/53 (71) 98 97/58 (71) 04/21/24 07:30 109 12 104/50 (68) 98 04/21/24 07:17 114 7 105/57 (73) 91 105/62 (76) 04/21/24 07:15 115 15 107/57 (74) 97 04/21/24 07:02 99.0 112 6 112/59 (76) 97 112/60 (77) 04/21/24 07:00 112 25 114/59 (77) 97 106/64 (78) 04/21/24 06:45 117 15 112/58 (76) 96 04/21/24 06:35 116 14 N/Cannula Low lpm 5.0 28 04/21/24 06:17 121 29 116/59 (78) 94 04/21/24 06:02 119 15 112/58 (76) 99 04/21/24 05:47 119 9 110/59 (76) 99 04/21/24 05:32 117 17 129/67 (87) 100 125/68 (87) 04/21/24 05:18 116 59 133/64 (87) 100 130/71 (90) 04/21/24 05:02 113 9 139/66 (90) 97 125/76 (92) 04/21/24 04:47 108 23 130/64 (86) 98 126/76 (93) 04/21/24 04:32 112 24 117/60 (79) 100 115/74 (88) 04/21/24 04:17 109 22 111/56 (74) 99 111/65 (80) LABS: Laboratory: Test 04/21/24 11:32 04/21/24 04:19 04/21/24 03:35 04/20/24 20:18 Range/Units Whole Blood Glucose 147 H 70-110 MG/DL Blood Gas Specimen Type Arterial Arterial Blood pH 7.407 7.350-7.450 Arterial Blood Partial Pressure CO2 42 35-48 mmHg Arterial Blood Partial Pressure O2 122.3 H 83.0-108.0 mmHg Arterial Blood HCO3 26.0 21.0-28.0 mmol/L Arterial Blood Oxygen Saturation 97.3 94.0-98.0 % Arterial Blood Base Excess 1.1 -2.0-3.0 mmol/L Hemoglobin (Blood Gas) 11.5 L 13.5-17.5 g/dL Sodium (Blood Gas) 144 136-145 MMOL/L Bedside Potassium (Blood Gas) 4.3 3.4-4.5 MMOL/L Bedside Chloride (Blood Gas) 110 H 98-107 MMOL/L Bedside Glucose (Blood Gas) 120 H 65-95 MG/DL Bedside Ionized Calcium (Blood Gas) 1.21 1.15-1.33 MMOL/L Bedside Lactic Acid (Blood Gas) 1.54 H 0.36-0.75 MMOL/L Blood Gas Temperature 37.0 35.5-37.0 CELSIUS Blood Gas Flow-by 10.00 0.00-15.00 L/min Blood Gas Vent Mode CAM ROOM AIR FiO2 40.0 % Blood Gas Specimen Comment STEPHANIE White Blood Count 12.2 H 4.8-10.8 K/uL Red Blood Count 3.45 L 4.50-6.20 MIL/uL Hemoglobin 10.7 L 14.0-18.0 g/dL Hematocrit 32.7 L 42-54 % Mean Corpuscular Volume 94.8 79-99 fL Mean Corpuscular Hemoglobin 31.0 27.0-33.0 pg Mean Corpuscular Hemoglobin Concent 32.7 32.0-36.0 g/dL Red Cell Distribution Width 13.7 11.0-15.5 % Platelet Count 184 130-400 K/uL Mean Platelet Volume 9.7 7.5-10.5 fL Immature Granulocyte % (Auto) 0.5 0-1 % Neutrophils (%) (Auto) 74.3 40.0-77.0 % Lymphocytes (%) (Auto) 11.3 L 21.0-51.0 % Monocytes (%) (Auto) 13.7 H 3.0-13.0 % Eosinophils (%) (Auto) 0.0 0.0-8.0 % Basophils (%) (Auto) 0.2 0.0-5.0 % Neutrophils # (Auto) 9.0 H 1.8-7.7 K/uL Lymphocytes # (Auto) 1.4 1.0-4.8 K/uL Monocytes # (Auto) 1.7 H 0.1-1.0 K/uL Eosinophils # (Auto) 0.00 0.00-0.70 K/uL Basophils # (Auto) 0.02 0.00-0.20 K/uL Absolute Immature Granulocyte (auto 0.06 0-1 K/uL Nucleated Red Blood Cells 0.0 0.0-0.19 % Prothrombin Time 11.8 H 9.6-11.6 SEC Prothromb Time International Ratio 1.10 0.85-1.15 Activated Partial Thromboplast Time 29.4 26.3-35.5 SEC Fibrinogen 444 H 180-350 mg/dL Sodium Level 150 H 136-145 mmol/L Potassium Level 4.3 3.5-5.1 mmol/L Chloride Level 114 H 101-111 mmol/L Carbon Dioxide Level 28 21-32 mmol/L Blood Urea Nitrogen 15 7-18 mg/dL Creatinine 0.9 0.5-1.3 mg/dL Glomerular Filtration Rate Calc 105 >90 mL/min Random Glucose 115 H 70-105 mg/dL Total Calcium 8.9 8.5-10.1 mg/dL Ionized Calcium 1.19 1.16-1.32 MMOL/L Phosphorus Level 4.0 2.5-4.9 mg/dL Magnesium Level 2.20 1.80-2.40 mg/dL Blood Gas Respiration Rate 4.0 min. Blood Gas Tidal Volume 600 ml Blood Gas PEEP 5 cm H2O Test 04/20/24 03:55 04/19/24 16:16 Range/Units Total Bilirubin 0.5 0.2-1.0 mg/dL Aspartate Amino Transf (AST/SGOT) 20 10-37 U/L Alanine Aminotransferase (ALT/SGPT) 46 12-78 U/L Alkaline Phosphatase 73 50-136 U/L B-Type Natriuretic Peptide 8 0-100 pg/mL Total Protein 6.6 6.0-8.3 g/dL Albumin 3.2 L 3.5-5.0 g/dL Triglycerides Level 154 30-200 mg/dL Cholesterol Level 144 <200 mg/dL LDL Cholesterol 76 0-99 mg/dL HDL Cholesterol 48 29-71 mg/dL Bedside Glucose Comment Notified Nurse Current Medications Medications (Trade) Dose Ordered Sig/Wes Route PRN Reason Start Time Stop Time Status Last Admin Dose Admin Acetaminophen (TYLenol 325MG TAB) 650 mg Q4H PRN PO Temp >38.3C(AFTER EXTUBATION) 04/20/24 10:00 05/20/24 09:59 Acetaminophen (TYLenol 325MG TAB) 650 mg Q6H PRN PO MILD PAIN (1-3) 04/17/24 22:00 05/17/24 21:59 04/17/24 22:59 650 MG Acetaminophen (TYLenol 650MG SUPPOSITORY) 650 mg Q4H PRN RC Temp >38.3C WHILE INTUBATED 04/20/24 10:00 05/20/24 09:59 Acetaminophen (acetaMINOPHEN) 1,000 mg Q6H6 IV 04/20/24 13:00 04/21/24 12:59 04/21/24 11:38 1,000 MG Albumin Human 250 ml @ 0 mls/hr AD PRN IV IF HEMODYNAMICALLY UNSTABLE 04/20/24 10:00 04/21/24 08:04 DC 04/21/24 08:04 100 MLS/HR Aminocaproic Acid 98352 mg/Sodium Chloride 310 ml @ 25 mls/hr AD IV 04/20/24 10:00 04/20/24 10:42 DC Aminocaproic Acid 24422 mg/Sodium Chloride 480 ml @ 0 mls/hr AD PRN IV BLEEDING CONTROL 04/20/24 06:30 05/20/24 06:29 Aspirin (Aspirin 81mg Chew Tab) 81 mg DAILY PO 04/15/24 14:00 05/15/24 13:59 04/21/24 08:03 81 MG Atorvastatin Calcium (LIPItor 40MG) 40 mg HS PO 04/15/24 21:00 05/15/24 20:59 04/20/24 22:37 40 MG Calcium Gluconate 1 gm/Sodium Chloride 60 ml @ 200 mls/hr AD PRN IV HYPOCALCEMIA 04/20/24 10:00 05/20/24 09:59 04/21/24 04:13 200 MLS/HR Cefazolin Sodium (Ancef) 2 gm ONCALL PRN IVP SURGERY 04/19/24 14:30 04/20/24 10:55 DC Cefazolin Sodium (Ancef) 2 gm Q8H IVPB 04/20/24 15:00 04/21/24 07:01 DC 04/21/24 06:44 2 GM Clopidogrel Bisulfate (plaVIX 75MG) 75 mg DAILY PO 04/15/24 14:00 04/15/24 18:27 DC 04/15/24 14:15 75 MG Dexmedetomidine/ Sodium Chloride (PRECEdex 400MCG/ 100ML-NS) 400 mcg PROTOCOL IV 04/20/24 10:00 04/21/24 09:59 DC 04/20/24 12:53 400 MCG Dexmedetomidine/ Sodium Chloride (PRECEdex 400MCG/ 100ML-NS) 400 mcg PROTOCOL IV 04/20/24 13:00 04/20/24 14:32 DC Dextrose (D50w) 50 ml AD PRN IV HYPOGLYCEMIA PROTOCOL 04/20/24 10:00 05/20/24 09:59 Docusate Sodium (COLace 100MG CAP) 100 mg BID PO 04/20/24 21:00 05/20/24 20:59 04/21/24 08:03 100 MG Enoxaparin Sodium (Lovenox) 30 mg DAILY SQ 04/23/24 09:00 05/23/24 08:59 Epinephrine HCl 10 mg/Sodium Chloride 250 ml @ 12.438 mls/ hr AD PRN IV POST-OP CARDIOVASCULAR ORDERS 04/20/24 10:00 04/25/24 09:59 Epinephrine HCl 10 mg/Sodium Chloride 250 ml @ 0 mls/hr AD PRN IV TITRATE 04/20/24 06:30 04/20/24 10:55 DC Famotidine (Pepcid 20mg Vial) 20 mg BID IV 04/20/24 21:00 05/20/24 20:59 04/21/24 08:03 20 MG Famotidine (Pepcid 20mg Tab) 20 mg BID PO 04/15/24 21:00 04/20/24 09:50 DC 04/19/24 20:39 20 MG Furosemide (LASix 20MG TAB) 20 mg Q12H PO 04/22/24 09:00 05/22/24 08:59 Furosemide (LASix 20MG VIAL) 20 mg Q12H IV 04/21/24 09:00 04/22/24 08:59 04/21/24 08:03 20 MG Glucagon (Glucagon 1mg Kit) 1 mg AD PRN IM HYPOGLYCEMIA PROTOCOL 04/20/24 10:00 05/20/24 09:59 Heparin Sodium (Porcine) (HEParin 5,000 UNIT VIAL) *calculation based on ACTUAL B... AD PRN IV HEPARIN PROTOCOL 04/15/24 14:00 04/20/24 09:50 DC Heparin Sodium/ Dextrose 250 ml @ 0 mls/hr Q6H IV 04/15/24 14:00 04/20/24 09:50 DC 04/19/24 02:00 10.5 MLS/HR Hydralazine HCl (APRESOLine 20MG INJ) 10 mg Q6H PRN IV ADMINISTER FOR SBP > 160 04/15/24 14:00 04/20/24 09:50 DC Insulin Human Regular (humuLIN R 100 UNIT/ML 3ML) INSULIN SLIDING SCAL... ACHS SQ 04/15/24 16:30 04/20/24 09:50 DC Insulin Human Regular 100 unit/ Sodium Chloride 100 ml @ 0 mls/hr AD IV 04/20/24 10:00 04/22/24 09:59 04/21/24 06:20 3 MLS/HR Lactulose (Constulose 20gm/ 30ml Udcup) 20 gm BID PRN PO CONSTIPATION 04/20/24 10:00 05/20/24 09:59 Magnesium Hydroxide (Milk Of Magnesium 30ml) 30 ml DAILY PRN PO CONSTIPATION 04/20/24 10:00 05/20/24 09:59 Magnesium Sulfate 50 ml @ 12.5 mls/hr AD PRN IV MAG LEVEL LESS THAN 2.0 04/20/24 10:00 05/20/24 09:59 04/21/24 01:33 12.5 MLS/HR Magnesium Sulfate 50 ml @ 0 mls/hr PROTOCOL IV 04/15/24 14:00 04/20/24 09:50 DC Metoprolol Tartrate (loprESSOR) 12.5 mg BID PO 04/16/24 21:00 04/20/24 09:50 DC 04/20/24 05:24 12.5 MG Metoprolol Tartrate (loprESSOR) 12.5 mg BID PO 04/22/24 09:00 05/22/24 08:59 Metoprolol Tartrate (loprESSOR) 25 mg ONCE STAT PO 04/15/24 12:43 04/15/24 12:46 DC 04/15/24 12:52 25 MG Morphine Sulfate (morPHINE 2MG SYG) 0.5 mg Q2H PRN IV MODERATE PAIN (4-6) 04/20/24 10:00 04/21/24 09:59 DC 04/20/24 12:52 0.5 MG Morphine Sulfate (morPHINE 2MG SYG) 1 mg Q2H PRN IV SEVERE PAIN (7-10) 04/20/24 10:00 04/21/24 09:59 DC Nitroglycerin (Nitrostat) 0.4 mg AD PRN SL CHEST PAIN 04/15/24 22:30 04/20/24 09:50 DC Nitroglycerin/ Dextrose 0 ml @ 0 mls/hr AD IV 04/20/24 10:00 04/23/24 09:59 Norepinephrine Bitartrate 250 ml @ 0 mls/hr AD PRN IV TITRATE 04/20/24 06:30 04/20/24 10:55 DC Norepinephrine Bitartrate 250 ml @ 0 mls/hr AD PRN IV POST-OP CARDIOVASCULAR ORDERS 04/20/24 11:00 05/20/24 10:59 04/21/24 11:39 11.3 MLS/HR Norepinephrine Bitartrate 8 mg/ Dextrose 250 ml @ 0 mls/hr AD PRN IV POST-OP CARDIOVASCULAR ORDERS 04/20/24 10:00 04/20/24 10:57 DC Ondansetron HCl (zoFRAN 4MG INJ) 4 mg Q6H PRN IV NAUSEA/VOMITING 04/20/24 10:00 05/20/24 09:59 Potassium Phosphate 250 ml @ 42 mls/hr AD PRN IV LOW PHOS LEVEL 04/20/24 10:00 05/20/24 09:59 Potassium Chloride 100 ml @ 100 mls/hr AD PRN IV POTASSIUM PROTOCOL 04/15/24 14:00 04/20/24 09:50 DC Potassium Chloride 100 ml @ 100 mls/hr AD PRN IV HYPOKALEMIA 04/20/24 10:00 05/20/24 09:59 04/20/24 22:34 100 MLS/HR Potassium Chloride (K-Dur/Klor-Con 20meq) 20 meq AD PRN PO POTASSIUM PROTOCOL 04/15/24 14:00 04/20/24 09:50 DC 04/15/24 14:14 20 MEQ Potassium Chloride (KCl 10% Elixir 20meq/15ml) 20 meq AD PRN PO POTASSIUM PROTOCOL 04/15/24 14:00 04/20/24 09:50 DC Propofol 100 ml @ 0 mls/hr AD PRN IV SEDATION 04/20/24 10:00 04/24/24 09:59 Sacubitril/ Valsartan (Entresto 24 Mg-26 Mg Tablet) 1 each BID PO 04/15/24 21:00 04/20/24 09:50 DC 04/19/24 20:39 1 EACH Sodium Bicarbonate (Sodium Bicarb 50meq 50ml Vial) 50 meq AD PRN IV OTHER[SEE DOSING INSTRUCTIONS] 04/20/24 10:00 04/23/24 09:59 04/20/24 15:38 150 MEQ Sodium Chloride 500 ml @ 0 mls/hr AD IV 04/20/24 10:00 05/20/24 09:59 Sodium Chloride 1,000 ml @ 10 mls/hr ONCE IV 04/20/24 10:00 04/21/24 09:59 DC 04/20/24 22:46 10 MLS/HR Sodium Chloride (NS Flush 10ml) 10 ml Q8H PRN IVP IV LINE FLUSH 04/20/24 10:00 05/20/24 09:59 Tramadol HCl (UltRAM) 25 mg Q6H PRN PO MODERATE PAIN (4-6) 04/20/24 10:00 04/25/24 09:59 04/21/24 10:15 50 MG Tramadol HCl (UltRAM) 50 mg Q6H PRN PO SEVERE PAIN (7-10) 04/20/24 10:00 04/25/24 09:59 04/21/24 04:44 50 MG DIAGNOSTICS / RADIOLOGY: [ ] CHEST 1VW HISTORY: Post CABG COMPARISON: 04/20/2024 FINDINGS: A frontal projection of the chest was obtained. Mild bilateral pulmonary infiltrates are seen may be related to mild pulmonary vascular congestion with possible superimposed pneumonitis. Poststernotomy changes are seen. The heart is enlarged. Degenerative changes of the thoracolumbar spine are present. Endotracheal tube and nasogastric tube have been. All the lines and tubes are again seen in place. No evidence of aortic calcification is seen. IMPRESSION: 1. Mild bilateral pulmonary infiltrates are seen may be related to mild pulmonary vascular congestion with possible superimposed pneumonitis. Postop changes. ASSESSMENT: Acute Inferior wall acute STEMI, status post TNKase, 04/13/2024, POA Underlying history of coronary artery disease, POA Family history of premature coronary artery disease, POA Type 2 diabetes mellitus, POA Hypertension, POA Hyperlipidemia, POA PLAN: Patient remains admitted to the intensive care unit Continue telemetry monitoring Status post CABG today, tolerated procedure well Continue to follow Cardiothoracic input and recommendation Cardiology input noted and appreciated Continue supplemental oxygen via nasal cannula Continue with chest tube in place Wean epinephrine and Levophed. Continue insulin drip Electrolytes replacement IV per protocol All labs will be repeated in the morning GI prophylaxis with Pepcid, DVT prophylaxis with heparin Plan of action discussed, all questions answered, agreed and understood the information provided. Total ICU time spent greater than 30 minutes. CARLEY HALL MD Apr 21, 2024 12:04
--- NOTE | 2024-04-21 15:28 | NUR ---
PT to follow post op
--- NOTE | 2024-04-21 19:00 | NUR ---
ART LINE REMOVED. ...BLOOD BAND WAS TOO TIGHT, OVER TOP OF STEPHANIE ID BAND, BLOOD BAND AND FALL RISK BAND ALL HAD TO BE CUT AND REPACED TO REMOVE A LINE. BLOOD BAND REMOVED, ID STICKER AND COLLECTION INFO ATTACHED TO BLUE BAND AND REPLACED ON PATIENT, ALL INFO FROM BLOOD BAND INTACT Addendum: 04/24/24 at 1033 by EVANGELIST UNDERWOOD RN RN WRONG TIME/DATE4
--- NOTE | 2024-04-21 23:58 | PN ---
SUBJECTIVE: Status post unroofing of the intramural right coronary arising from the left sinus and off-pump CABG x 2, coursing postoperative day #1. OBJECTIVE: GENERAL: Awake, alert, in no acute distress. VITAL SIGNS: Stable as recorded in medical record. CHEST: Sternum stable. Incision sealed. LUNGS: Clear. EXTREMITIES: Warm and well perfused. No evidence of DVT, hematoma or infection. ASSESSMENT: Status post unroofing of coronary artery. 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 The patient had an episode of chest pain. Cardiac catheterization and CT scan corroborated diagnosis and the patient was taken to the operating room and underwent off-pump CABG x 2 and unroofing. He is coursing postoperative day #1. * Coronary artery disease. Aspirin 81 mg, metoprolol 25 mg twice a day. * Fluid overload. Lasix 20 mg twice a day. * Dyslipidemia. Lipitor 40 mg once a day. PLAN: Out of bed, ambulating. Discontinue chest tubes. PT, OT, cardiac rehabilitation. TID: [id number] RECEIPT: [id number]
[2024-04-22] VITALS (69 sets, daily range): BP systolic 76–130; BP diastolic 36–66; PULSE 93–112; RESP 10–28; TEMP 97.8–99.8; O2SAT 97–100
[2024-04-22] MEDS: ondanSETRON 4MG INJ IV PRN (04:46)
[2024-04-22 05:15] LABS: HEMATOCRIT 26.9 % (42-54); MEAN CORPUSCULAR HGB CONC 31.2 g/dL (32.0-36.0); MEAN CORPUSCULAR VOLUME 99.3 fL (79-99); RED BLOOD CELL COUNT(AUTO) 2.71 MIL/uL (4.50-6.20); RED CELL DISTRIBUTION WIDTH 13.8 % (11.0-15.5); WHITE BLOOD COUNT (AUTO) 8.4 K/uL (4.8-10.8)
--- NOTE | 2024-04-22 05:29 | OP ---
DATE OF PROCEDURE: 04/20/2024 PREOPERATIVE DIAGNOSIS: Urinary retention with urethral stricture disease. PROCEDURES PERFORMED: * Ureteroscopy. * Retrograde urethrogram. * Balloon dilation of anterior urethral strictures. * Placement of 12-[place] tip [place] catheter with bladder drainage of 650 mL. SPECIMENS: None. DRAINS: Those of a 12-[place] 2-way [place] catheter. THE PATIENT HAS AN ALLERGY TO LATEX. This is a latex-free catheter. INDICATIONS FOR PROCEDURE: This is a 49-year-old male with urethral stricture disease status post urethroplasty with buccal mucosal graft in 2018, status post a recent coronary artery bypass grafting surgery earlier this morning, ____ place a [place] catheter and urinary retention, scheduled for cystoscopy, dilatation of urethral strictures, placement of a catheter for bladder drainage, possible suprapubic cystostomy tube placement and indicated procedures. All risks, benefits, alternatives and potential complications were reviewed with the patient's . Concerns answered. Did request to proceed and did provide fully informed consent. FINDINGS: Anterior urethra was significant for multiple nonpassable urethral strictures. These were balloon dilated because of the urgent nature of the patient's current status. A formal cystourethroscopy was not performed. A postvoid residual of 650 mL was obtained. DESCRIPTION OF PROCEDURE: The patient was duly identified, informed consent was confirmed. Timeout was taken. He was then brought to the operating room and placed supine on the operating table. After adequate hemodynamic monitoring had been established by Anesthesiology, the patient underwent smooth induction of general anesthesia by Anesthesiology. Next, he was placed in the dorsal lithotomy position. Genitalia were now thoroughly prepped and draped in the usual fashion and a retrograde urethrogram was then done. With a hard copy x-ray and continuous fluoroscopy identifying multiple urethral strictures in anterior urethra, a very thin urethra and a string of beads identified. Next, a 17-[place] cystoscope was then brought into field and careful urethroscopy was then performed, however, passage into the urethra be obtained before encountering a nonpassable stricture. For that reason, a 0.038 Glidewire was carefully advanced past the stricture into the bladder. Once this was achieved, the cystoscope was exchanged out. Over the wire, was advanced a ureteric catheter into the bladder. The Glidewire was removed and working wire was then advanced into the bladder through the ureteric catheter. The ureteric catheter was exchanged out and over the wire, I made an attempt to advance a balloon dilating catheter 6 cm 16-[place] and a balloon dilatation of the urethra was then performed to completion. One segment of the stricture; however, would not dilate a great deal with very little expansion of the balloon at that location. Following dilatation of the urethral stricture, the balloon dilating catheter was exchanged out and over the wire was advanced initially a 14-[place] catheter. This proved impossible. Additional dilatation was then performed with the balloon again and then ultimately a 12-[place] catheter over the wire was advanced into the bladder. The balloon was inflated, the wire was removed and drainage of 650 mL of clear urine was then obtained. The patient tolerated the procedure well. There was minimal bleeding if any. Rectal examination reveals a 25 gram benign feeling prostate. The patient was now awakened from anesthesia and was now transferred from the operating room back to intensive care unit in good stable hemodynamically satisfactory condition having experienced no complications. Plan is for the patient to maintain [place] catheter in place until the patient is able to stand and void. Otherwise, may require additional instrumentation to replace [place] catheter if catheter is inadvertently removed prematurely. No complications. Did receive prophylactic 1 gram IV Ancef for this procedure. TID: [id number] RECEIPT: [id number]
--- NOTE | 2024-04-22 05:36 | CONS ---
REQUESTING PHYSICIAN: Miguel Enciso MD, cardiac surgeon. REASON FOR CONSULTATION: Urinary retention. HISTORY OF PRESENT ILLNESS: This is a 49-year-old male status post coronary artery bypass grafting with decortication of coronary arteries earlier today. Apparently, the patient could not have a Richmond catheter placed. He has a history of urethroplasty for urethral stricture in the past in 2018 and an urgent consultation Urology requested. Postoperatively when the patient had been placed in the intensive care unit, because postvoid residual volume of 900 mL was identified on bladder scan and the patient is unable to void. The patient is encountered lying in a gurney in the intensive care unit. He is able to respond to some questions. History is obtained primarily from his . PAST MEDICAL HISTORY: Coronary artery disease, type 2 diabetes, dyslipidemia, hypertension. PAST SURGICAL HISTORY: Buccal graft mucosal urethroplasty for urethral stricture in 2018 in [facility]. He has a left knee arthroscopy, left heart catheterization. ALLERGIES: METFORMIN, SUCCINYLCHOLINE, AND CLINDAMYCIN. MEDICATIONS: He is currently on IV Ancef. 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 , 3 children. Does not smoke or drink. FAMILY HISTORY: Negative for kidney stones. REVIEW OF SYSTEMS: Not obtainable. PHYSICAL EXAMINATION: GENERAL: Well-developed male in no distress, status post recent coronary artery bypass grafting and sternotomy for myocardial infarction. VITAL SIGNS: Show a temperature of 98, blood pressure is 110/80 with a pulse of 90. RESPIRATORY: Lung bentley have basal crepitation. CHEST: The patient with recent sternotomy incision with a chest tube in place. ABDOMEN: Full, soft, nontender. BACK: Has no CVA tenderness. EXTERNAL GENITALIA: Phallus is circumcised with evidence of prior scarring in the ventral aspect of the penis. RECTAL: Normal anus and empty rectum. A 25 g benign feeling prostate. No nodules. Lateral sulci clear as well as median raphae. LABORATORY DATA: White count is 9.5, hematocrit preoperatively was 47 with a platelet count of 224. INR was 1.1. DIAGNOSTIC DATA: The patient's bladder scan tracing is also reviewed, demonstrating about 900 mL of postvoid residual volume. ASSESSMENT: Urinary retention, recent urethroplasty with inability for urethral stricture disease and inability to place Richmond catheter. RECOMMENDATIONS: The patient will be brought to the cystoscopy suite as soon as possible for an endoscopic evaluation of urethra, retrograde urethrogram, possible Richmond catheter placement and ultimately suprapubic cystostomy tube placement if unable to place a urethral Richmond catheter. All risks, benefits, and alternatives were reviewed with the patient's . Her concerns answered. She did informed consent and he will be scheduled as soon as possible. Thank you for the opportunity for consultation Urology. TID: [id number] RECEIPT: [id number]
[2024-04-22 05:42] LABS: CREATININE 0.9 mg/dL (0.5-1.3); POTASSIUM 4.1 mmol/L (3.5-5.1)
--- NOTE | 2024-04-22 08:46 | PN ---
[facility] CARDIOLOGY PROGRESS NOTE Date Patient Seen: Apr 22, 2024 Time of Visit: 08:41 Interval History: [ S/p CABG x2, MEDRANO to LAD and unroofing of the RCA 04/20/2024.] Physical Examination: GENERAL: [No acute distress.] HEAD: [Normal with no signs of head trauma.] EYES: [PERRLA, EOMI, conjunctiva and sclera normal.] ENT: [Hearing grossly intact, normal oropharynx.] NECK: [Supple without JVD. There is no tenderness, lymphadenopathy, or masses. No thyromegaly. Normal carotid upstrokes without bruits.] LUNGS: [Clear breath sounds bilaterally. There are right basilar rales one third of the way up the chest. No wheezes, or rhonchi.] HEART: [Normal rate and rhythm. Normal S1 and S2 without mumurs, gallop or rub.] VASC: [Peripheral pulses +2 bilaterally.] ABD: [Bowel sounds normal, soft, nontender, no masses, no organomegaly. No audible bruits.] : [Not examined] LYMPH: [No lymphadenopathy noted.] EXT: [No clubbing, cyanosis or edema.] SKIN: [No rashes or lesions noted.] NEURO: [Awake, alert, and oriented x3. No focal sensory or strength deficits noted.] Laboratory: [ ] Hematology Labs: Test 04/22/24 04:52 04/21/24 03:35 Range/Units White Blood Count 8.4 4.8-10.8 K/uL Red Blood Count 2.71 L 4.50-6.20 MIL/uL Hemoglobin 8.4 #L 14.0-18.0 g/dL Hematocrit 26.9 L 42-54 % Mean Corpuscular Volume 99.3 H 79-99 fL Mean Corpuscular Hemoglobin 31.0 27.0-33.0 pg Mean Corpuscular Hemoglobin Concent 31.2 L 32.0-36.0 g/dL Red Cell Distribution Width 13.8 11.0-15.5 % Platelet Count 114 #L 130-400 K/uL Mean Platelet Volume 9.8 7.5-10.5 fL Nucleated Red Blood Cells 0.0 0.0-0.19 % Immature Granulocyte % (Auto) 0.5 0-1 % Neutrophils (%) (Auto) 74.3 40.0-77.0 % Lymphocytes (%) (Auto) 11.3 L 21.0-51.0 % Monocytes (%) (Auto) 13.7 H 3.0-13.0 % Eosinophils (%) (Auto) 0.0 0.0-8.0 % Basophils (%) (Auto) 0.2 0.0-5.0 % Neutrophils # (Auto) 9.0 H 1.8-7.7 K/uL Lymphocytes # (Auto) 1.4 1.0-4.8 K/uL Monocytes # (Auto) 1.7 H 0.1-1.0 K/uL Eosinophils # (Auto) 0.00 0.00-0.70 K/uL Basophils # (Auto) 0.02 0.00-0.20 K/uL Absolute Immature Granulocyte (auto 0.06 0-1 K/uL Chemistry Labs: Test 04/22/24 07:47 04/22/24 04:52 04/21/24 03:35 Range/Units Whole Blood Glucose 147 #H 70-110 MG/DL Sodium Level 141 136-145 mmol/L Potassium Level 4.1 3.5-5.1 mmol/L Chloride Level 104 101-111 mmol/L Carbon Dioxide Level 32 21-32 mmol/L Blood Urea Nitrogen 12 7-18 mg/dL Creatinine 0.9 0.5-1.3 mg/dL Glomerular Filtration Rate Calc 105 >90 mL/min Random Glucose 93 70-105 mg/dL Total Calcium 7.9 L 8.5-10.1 mg/dL Ionized Calcium 1.19 1.16-1.32 MMOL/L Phosphorus Level 4.0 2.5-4.9 mg/dL Magnesium Level 2.20 1.80-2.40 mg/dL Coagulation Labs: Test 04/21/24 03:35 Range/Units Prothrombin Time 11.8 H 9.6-11.6 SEC Prothromb Time International Ratio 1.10 0.85-1.15 Activated Partial Thromboplast Time 29.4 26.3-35.5 SEC Fibrinogen 444 H 180-350 mg/dL Diagnostics / Radiology: [Copy/Paste Echos/Imaging Report here] Impression and Plan: [ Acute Inferior wall acute STEMI, status post TNKase, 04/13/2024, POA Underlying history of coronary artery disease, POA Family history of premature coronary artery disease, POA Type 2 diabetes mellitus, POA Hypertension, POA Hyperlipidemia, POA S/P CABG x2 MEDRANO to LAD and RSVG to PDA- on 04/[address] 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 Lipitor 40 mg once a day. - PT, OT, cardiac rehabilitation. Thank you for this consult. Salud Crocker MD ] SALUD CROCKER MD Apr 22, 2024 08:46
[2024-04-22] MEDS: metoPROLOL tartRATE 25 MG TAB PO SCH (09:00)
[2024-04-22] MEDS: furoSEMIDE 20 MG TABLET PO SCH (09:04)
--- NOTE | 2024-04-22 10:43 | PN ---
[facility] PROGRESS NOTE Date of Service: Apr 22, 2024 Time of Service: 10:43 SUBJECTIVE: 04/17 patient seen at bedside, no acute events overnight. Patient has been evaluated by Cardiology and a coronary CTA was performed, they are recommending cardio vascular surgery recommendations. He is likely to be taken do surgery tomorrow, we will follow up with CV surgery. Vitals and labs are relatively unremarkable. 04/18 patient seen at bedside, no acute events overnight. Pending CABG with CV surgery today, we will follow up postprocedure. Vitals and labs are relatively unremarkable. 04/19 patient seen at bedside, no acute events overnight. CABG rescheduled for Saturday. Vitals and labs are relatively unremarkable. 04/20 patient is seen and examined today during my rounding, he is now in the ICU, intubated, mechanical ventilation, status post CABG by Cardiothoracic surgeon today. Tolerated procedure well. at bedside, updated. 04/21 the patient has been seen and examined during my rounding, the patient is successfully extubated, on supplemental oxygen via nasal cannula saturating 98%, hemodynamically stable, BP 104/54, afebrile. He is tolerating clear liquid, denied chest pain, no shortness a breath, no nausea, no vomiting. Currently the patient on low-dose epinephrine, low-dose Levophed, on insulin drip. Chest tube in place. REVIEW OF SYSTEMS 12 point review of systems negative unless noted in HPI PHYSICAL EXAM GENERAL APPEARANCE: Patient is intubated, on mechanical ventilation. NEUROLOGICAL: Cranial nerves II-XII grossly intact. Motor is 5/5 in bilateral upper and lower extremities proximal to distal. No sensory deficits. HEENT: Face is symmetric. Pupils are equal and reactive. Extraocular movements are intact. NECK: Supple. No JVD. No thyromegaly. No submental, submandibular, pre- /postauricular, occipital or supraclavicular lymphadenopathy. CHEST: Normal chest expansion. No Telemetry. LUNGS: Absence of any rales, rhonchi or any wheezing. CARDIOVASCULAR: Regular. S1 and S2 normal. No appreciable rubs, murmurs or gallops. ABDOMEN: Soft, nontender, and nondistended. There is no rebound, voluntary guarding, or rigidity. : Deferred. No Richmond. EXTREMITIES: Non-edematous and not cyanotic. No clubbing. Good capillary refill. SKIN: No skin breakdown. Vital Signs (last 8hr) Date Time Temp Pulse Resp B/P (MAP) Pulse Ox O2 Delivery O2 Flow Rate FiO2 04/22/24 07:03 97.9 107 21 104/44 (64) 100 99/56 (70) 04/22/24 06:52 105 19 106/45 (65) 98 106/53 (70) 04/22/24 06:47 103 17 103/44 (63) 97 104/53 (70) 04/22/24 06:45 103 18 101/43 (62) 98 04/22/24 06:32 102 17 105/45 (65) 98 111/57 (75) 04/22/24 06:17 106 21 92/47 (62) 97 111/64 (80) 04/22/24 06:02 108 22 98/46 (63) 95 107/56 (73) 04/22/24 06:01 108 18 93/45 (61) 94 98/55 (69) 04/22/24 05:32 104 21 105/58 (74) 96 94/57 (69) 04/22/24 05:17 93 13 102/45 (64) 98 92/51 (65) 04/22/24 05:03 104 20 97/44 (61) 97 92/49 (63) 04/22/24 04:47 99 16 109/46 (67) 97 100/52 (68) 04/22/24 04:32 101 17 105/54 (71) 98 96/53 (67) 04/22/24 04:17 102 17 109/55 (73) 97 96/59 (71) 04/22/24 04:03 96 13 102/50 (67) 98 91/49 (63) 04/22/24 04:00 100 Nasal Cannula* 3 32 04/22/24 03:47 106 18 94/47 (63) 97 83/49 (60) 04/22/24 03:32 94 18 104/52 (69) 96 87/55 (66) 04/22/24 03:17 101 25 100/52 (68) 97 98/51 (67) 04/22/24 03:02 100 23 96/47 (63) 98 98/49 (65) 04/22/24 02:47 95 12 92/48 (63) 97 76/41 (53) LABS: Laboratory: Test 04/22/24 07:47 04/22/24 04:52 04/21/24 04:19 04/21/24 03:35 Range/Units Whole Blood Glucose 147 #H 70-110 MG/DL White Blood Count 8.4 4.8-10.8 K/uL Red Blood Count 2.71 L 4.50-6.20 MIL/uL Hemoglobin 8.4 #L 14.0-18.0 g/dL Hematocrit 26.9 L 42-54 % Mean Corpuscular Volume 99.3 H 79-99 fL Mean Corpuscular Hemoglobin 31.0 27.0-33.0 pg Mean Corpuscular Hemoglobin Concent 31.2 L 32.0-36.0 g/dL Red Cell Distribution Width 13.8 11.0-15.5 % Platelet Count 114 #L 130-400 K/uL Mean Platelet Volume 9.8 7.5-10.5 fL Nucleated Red Blood Cells 0.0 0.0-0.19 % Sodium Level 141 136-145 mmol/L Potassium Level 4.1 3.5-5.1 mmol/L Chloride Level 104 101-111 mmol/L Carbon Dioxide Level 32 21-32 mmol/L Blood Urea Nitrogen 12 7-18 mg/dL Creatinine 0.9 0.5-1.3 mg/dL Glomerular Filtration Rate Calc 105 >90 mL/min Random Glucose 93 70-105 mg/dL Total Calcium 7.9 L 8.5-10.1 mg/dL Blood Gas Specimen Type Arterial Arterial Blood pH 7.407 7.350-7.450 Arterial Blood Partial Pressure CO2 42 35-48 mmHg Arterial Blood Partial Pressure O2 122.3 H 83.0-108.0 mmHg Arterial Blood HCO3 26.0 21.0-28.0 mmol/L Arterial Blood Oxygen Saturation 97.3 94.0-98.0 % Arterial Blood Base Excess 1.1 -2.0-3.0 mmol/L Hemoglobin (Blood Gas) 11.5 L 13.5-17.5 g/dL Sodium (Blood Gas) 144 136-145 MMOL/L Bedside Potassium (Blood Gas) 4.3 3.4-4.5 MMOL/L Bedside Chloride (Blood Gas) 110 H 98-107 MMOL/L Bedside Glucose (Blood Gas) 120 H 65-95 MG/DL Bedside Ionized Calcium (Blood Gas) 1.21 1.15-1.33 MMOL/L Bedside Lactic Acid (Blood Gas) 1.54 H 0.36-0.75 MMOL/L Blood Gas Temperature 37.0 35.5-37.0 CELSIUS Blood Gas Flow-by 10.00 0.00-15.00 L/min Blood Gas Vent Mode CAM ROOM AIR FiO2 40.0 % Blood Gas Specimen Comment STEPHANIE Immature Granulocyte % (Auto) 0.5 0-1 % Neutrophils (%) (Auto) 74.3 40.0-77.0 % Lymphocytes (%) (Auto) 11.3 L 21.0-51.0 % Monocytes (%) (Auto) 13.7 H 3.0-13.0 % Eosinophils (%) (Auto) 0.0 0.0-8.0 % Basophils (%) (Auto) 0.2 0.0-5.0 % Neutrophils # (Auto) 9.0 H 1.8-7.7 K/uL Lymphocytes # (Auto) 1.4 1.0-4.8 K/uL Monocytes # (Auto) 1.7 H 0.1-1.0 K/uL Eosinophils # (Auto) 0.00 0.00-0.70 K/uL Basophils # (Auto) 0.02 0.00-0.20 K/uL Absolute Immature Granulocyte (auto 0.06 0-1 K/uL Prothrombin Time 11.8 H 9.6-11.6 SEC Prothromb Time International Ratio 1.10 0.85-1.15 Activated Partial Thromboplast Time 29.4 26.3-35.5 SEC Fibrinogen 444 H 180-350 mg/dL Ionized Calcium 1.19 1.16-1.32 MMOL/L Phosphorus Level 4.0 2.5-4.9 mg/dL Magnesium Level 2.20 1.80-2.40 mg/dL Test 04/20/24 20:18 Range/Units Blood Gas Respiration Rate 4.0 min. Blood Gas Tidal Volume 600 ml Blood Gas PEEP 5 cm H2O Current Medications Medications (Trade) Dose Ordered Sig/Wes Route PRN Reason Start Time Stop Time Status Last Admin Dose Admin Acetaminophen (TYLenol 325MG TAB) 650 mg Q4H PRN PO Temp >38.3C(AFTER EXTUBATION) 04/20/24 10:00 05/20/24 09:59 Acetaminophen (TYLenol 325MG TAB) 650 mg Q6H PRN PO MILD PAIN (1-3) 04/17/24 22:00 05/17/24 21:59 04/22/24 00:34 650 MG Acetaminophen (TYLenol 650MG SUPPOSITORY) 650 mg Q4H PRN RC Temp >38.3C WHILE INTUBATED 04/20/24 10:00 05/20/24 09:59 Acetaminophen (acetaMINOPHEN) 1,000 mg Q6H6 IV 04/20/24 13:00 04/21/24 12:59 DC 04/21/24 11:38 1,000 MG Albumin Human 250 ml @ 0 mls/hr AD PRN IV IF HEMODYNAMICALLY UNSTABLE 04/20/24 10:00 04/21/24 08:04 DC 04/21/24 08:04 100 MLS/HR Aminocaproic Acid 42470 mg/Sodium Chloride 310 ml @ 25 mls/hr AD IV 04/20/24 10:00 04/20/24 10:42 DC Aminocaproic Acid 68805 mg/Sodium Chloride 480 ml @ 0 mls/hr AD PRN IV BLEEDING CONTROL 04/20/24 06:30 05/20/24 06:29 Aspirin (Aspirin 81mg Chew Tab) 81 mg DAILY PO 04/15/24 14:00 05/15/24 13:59 04/22/24 09:04 81 MG Atorvastatin Calcium (LIPItor 40MG) 40 mg HS PO 04/15/24 21:00 05/15/24 20:59 04/21/24 20:17 40 MG Calcium Gluconate 1 gm/Sodium Chloride 60 ml @ 200 mls/hr AD PRN IV HYPOCALCEMIA 04/20/24 10:00 05/20/24 09:59 04/21/24 04:13 200 MLS/HR Cefazolin Sodium (Ancef) 2 gm ONCALL PRN IVP SURGERY 04/19/24 14:30 04/20/24 10:55 DC Cefazolin Sodium (Ancef) 2 gm Q8H IVPB 04/20/24 15:00 04/21/24 07:01 DC 04/21/24 06:44 2 GM Clopidogrel Bisulfate (plaVIX 75MG) 75 mg DAILY PO 04/15/24 14:00 04/15/24 18:27 DC 04/15/24 14:15 75 MG Dexmedetomidine/ Sodium Chloride (PRECEdex 400MCG/ 100ML-NS) 400 mcg PROTOCOL IV 04/20/24 10:00 04/21/24 09:59 DC 04/20/24 12:53 400 MCG Dexmedetomidine/ Sodium Chloride (PRECEdex 400MCG/ 100ML-NS) 400 mcg PROTOCOL IV 04/20/24 13:00 04/20/24 14:32 DC Dextrose (D50w) 50 ml AD PRN IV HYPOGLYCEMIA PROTOCOL 04/20/24 10:00 05/20/24 09:59 Docusate Sodium (COLace 100MG CAP) 100 mg BID PO 04/20/24 21:00 05/20/24 20:59 04/22/24 09:04 100 MG Enoxaparin Sodium (Lovenox) 30 mg DAILY SQ 04/23/24 09:00 05/23/24 08:59 Epinephrine HCl 10 mg/Sodium Chloride 250 ml @ 12.438 mls/ hr AD PRN IV POST-OP CARDIOVASCULAR ORDERS 04/20/24 10:00 04/25/24 09:59 Epinephrine HCl 10 mg/Sodium Chloride 250 ml @ 0 mls/hr AD PRN IV TITRATE 04/20/24 06:30 04/20/24 10:55 DC Famotidine (Pepcid 20mg Vial) 20 mg BID IV 04/20/24 21:00 05/20/24 20:59 04/22/24 09:04 20 MG Famotidine (Pepcid 20mg Tab) 20 mg BID PO 04/15/24 21:00 04/20/24 09:50 DC 04/19/24 20:39 20 MG Furosemide (LASix 20MG TAB) 20 mg Q12H PO 04/22/24 09:00 05/22/24 08:59 04/22/24 09:04 20 MG Furosemide (LASix 20MG VIAL) 20 mg Q12H IV 04/21/24 09:00 04/22/24 08:59 DC 04/21/24 20:17 20 MG Glucagon (Glucagon 1mg Kit) 1 mg AD PRN IM HYPOGLYCEMIA PROTOCOL 04/20/24 10:00 05/20/24 09:59 Heparin Sodium (Porcine) (HEParin 5,000 UNIT VIAL) *calculation based on ACTUAL B... AD PRN IV HEPARIN PROTOCOL 04/15/24 14:00 04/20/24 09:50 DC Heparin Sodium/ Dextrose 250 ml @ 0 mls/hr Q6H IV 04/15/24 14:00 04/20/24 09:50 DC 04/19/24 02:00 10.5 MLS/HR Hydralazine HCl (APRESOLine 20MG INJ) 10 mg Q6H PRN IV ADMINISTER FOR SBP > 160 04/15/24 14:00 04/20/24 09:50 DC Insulin Human Regular (humuLIN R 100 UNIT/ML 3ML) INSULIN SLIDING SCAL... ACHS SQ 04/15/24 16:30 04/20/24 09:50 DC Insulin Human Regular 100 unit/ Sodium Chloride 100 ml @ 0 mls/hr AD IV 04/20/24 10:00 04/22/24 09:59 DC 04/21/24 06:20 3 MLS/HR Lactulose (Constulose 20gm/ 30ml Udcup) 20 gm BID PRN PO CONSTIPATION 04/20/24 10:00 05/20/24 09:59 Magnesium Hydroxide (Milk Of Magnesium 30ml) 30 ml DAILY PRN PO CONSTIPATION 04/20/24 10:00 05/20/24 09:59 Magnesium Sulfate 50 ml @ 12.5 mls/hr AD PRN IV MAG LEVEL LESS THAN 2.0 04/20/24 10:00 05/20/24 09:59 04/21/24 01:33 12.5 MLS/HR Magnesium Sulfate 50 ml @ 0 mls/hr PROTOCOL IV 04/15/24 14:00 04/20/24 09:50 DC Metoprolol Tartrate (loprESSOR) 12.5 mg BID PO 04/16/24 21:00 04/20/24 09:50 DC 04/20/24 05:24 12.5 MG Metoprolol Tartrate (loprESSOR) 12.5 mg BID PO 04/22/24 09:00 05/22/24 08:59 Metoprolol Tartrate (loprESSOR) 25 mg ONCE STAT PO 04/15/24 12:43 04/15/24 12:46 DC 04/15/24 12:52 25 MG Morphine Sulfate (morPHINE 2MG SYG) 0.5 mg Q2H PRN IV MODERATE PAIN (4-6) 04/20/24 10:00 04/21/24 09:59 DC 04/20/24 12:52 0.5 MG Morphine Sulfate (morPHINE 2MG SYG) 1 mg Q2H PRN IV SEVERE PAIN (7-10) 04/20/24 10:00 04/21/24 09:59 DC Nitroglycerin (Nitrostat) 0.4 mg AD PRN SL CHEST PAIN 04/15/24 22:30 04/20/24 09:50 DC Nitroglycerin/ Dextrose 0 ml @ 0 mls/hr AD IV 04/20/24 10:00 04/23/24 09:59 Norepinephrine Bitartrate 250 ml @ 0 mls/hr AD PRN IV TITRATE 04/20/24 06:30 04/20/24 10:55 DC Norepinephrine Bitartrate 250 ml @ 0 mls/hr AD PRN IV POST-OP CARDIOVASCULAR ORDERS 04/20/24 11:00 05/20/24 10:59 04/21/24 11:39 11.3 MLS/HR Norepinephrine Bitartrate 8 mg/ Dextrose 250 ml @ 0 mls/hr AD PRN IV POST-OP CARDIOVASCULAR ORDERS 04/20/24 10:00 04/20/24 10:57 DC Ondansetron HCl (zoFRAN 4MG INJ) 4 mg Q6H PRN IV NAUSEA/VOMITING 04/20/24 10:00 05/20/24 09:59 04/22/24 04:46 4 MG Potassium Phosphate 250 ml @ 42 mls/hr AD PRN IV LOW PHOS LEVEL 04/20/24 10:00 05/20/24 09:59 Potassium Chloride 100 ml @ 100 mls/hr AD PRN IV POTASSIUM PROTOCOL 04/15/24 14:00 04/20/24 09:50 DC Potassium Chloride 100 ml @ 100 mls/hr AD PRN IV HYPOKALEMIA 04/20/24 10:00 05/20/24 09:59 04/20/24 22:34 100 MLS/HR Potassium Chloride (K-Dur/Klor-Con 20meq) 20 meq AD PRN PO POTASSIUM PROTOCOL 04/15/24 14:00 04/20/24 09:50 DC 04/15/24 14:14 20 MEQ Potassium Chloride (KCl 10% Elixir 20meq/15ml) 20 meq AD PRN PO POTASSIUM PROTOCOL 04/15/24 14:00 04/20/24 09:50 DC Propofol 100 ml @ 0 mls/hr AD PRN IV SEDATION 04/20/24 10:00 04/24/24 09:59 Sacubitril/ Valsartan (Entresto 24 Mg-26 Mg Tablet) 1 each BID PO 04/15/24 21:00 04/20/24 09:50 DC 04/19/24 20:39 1 EACH Sodium Bicarbonate (Sodium Bicarb 50meq 50ml Vial) 50 meq AD PRN IV OTHER[SEE DOSING INSTRUCTIONS] 04/20/24 10:00 04/23/24 09:59 04/20/24 15:38 150 MEQ Sodium Chloride 500 ml @ 0 mls/hr AD IV 04/20/24 10:00 05/20/24 09:59 Sodium Chloride 1,000 ml @ 10 mls/hr ONCE IV 04/20/24 10:00 04/21/24 09:59 DC 04/20/24 22:46 10 MLS/HR Sodium Chloride (NS Flush 10ml) 10 ml Q8H PRN IVP IV LINE FLUSH 04/20/24 10:00 05/20/24 09:59 Tramadol HCl (UltRAM) 25 mg Q6H PRN PO MODERATE PAIN (4-6) 04/20/24 10:00 04/25/24 09:59 04/22/24 04:46 25 MG Tramadol HCl (UltRAM) 50 mg Q6H PRN PO SEVERE PAIN (7-10) 04/20/24 10:00 04/25/24 09:59 04/21/24 20:17 50 MG DIAGNOSTICS / RADIOLOGY: [ ] ASSESSMENT: Acute Inferior wall acute STEMI, status post TNKase, 04/13/2024, POA Underlying history of coronary artery disease, POA Family history of premature coronary artery disease, POA Type 2 diabetes mellitus, POA Hypertension, POA Hyperlipidemia, POA PLAN: Patient remains admitted to the intensive care unit Continue telemetry monitoring Status post CABG today, tolerated procedure well Continue to follow Cardiothoracic input and recommendation Cardiology input noted and appreciated Continue supplemental oxygen via nasal cannula Continue with chest tube in place Wean epinephrine and Levophed. Continue insulin drip Electrolytes replacement IV per protocol All labs will be repeated in the morning GI prophylaxis with Pepcid, DVT prophylaxis with heparin Plan of action discussed, all questions answered, agreed and understood the information provided. Total ICU time spent greater than 30 minutes. CARLEY HALL MD Apr 22, 2024 10:43
--- NOTE | 2024-04-22 10:49 | PN ---
[facility] PROGRESS NOTE Date Patient Seen: Apr 22, 2024 Time of Visit: 10:49 Supervising Physician: Alek Mane MD Primary Care Physician: Dr. Valentin Persaud Outpatient Specialists: NA Inpatient Consults: Dr. Trivedi, Dr. Lincoln PROBLEM LIST: Acute Inferior wall STEMI, status post TNKase, 04/13/2024, POA S/P LHC on 04/15/24 Multivessel CAD S/P CABG x2 MEDRANO to LAD and RSVG to PDA- on 04/[address] Enciso Acute on chronic urinary retention- history of ureteral stricture S/P IR suprapubic catheter placement 04/20 Underlying history of coronary artery disease, POA Family history of premature coronary artery disease, POA Type 2 diabetes mellitus, POA Hypertension, POA Hyperlipidemia, POA History of hypertension, diabetes mellitus, hyperlipidemia, urethroplasty due to ureteral stricture, LA with per cardiac stent INTERVAL HISTORY: 04/21/24-day 1. status post CABG x2. As per RN overnight patient had to get emergently a suprapubic fc per cystoscopy by Dr. Duggan due to history of urinary stricture and urinary retention. weaning off Levophed currently at 7 micrograms/minute and epinephrine at 0.01 micrograms/kilogram per minute. Patient is calm cooperative awake alert and oriented x3 sitting up on hospital bed. No major complaints other than incisional tenderness with movement and cough. Patient and sinus tachycardia 113 beats per minute, respiratory rate of 20 blood pressure improving 125/61 with a map of 82 we will continue to wean down pressors per CV protocol O2 sat 99% with 2 L via nasal cannula on chest x- ray with increased pulmonary vascular congestion patient was given a dose of Lasix this morning per Cardiology and continues with scheduled doses of Lasix tomorrow morning. On WBCs 12.2 as expected postop H&H of 10.7/32.7 platelet count is normal. Kidneys are doing well with the creatinine of 0.9 GFR of 105 sodium 150 potassium 4.3 chloride 114. Patient is starting clear liquid diet today. 04/22-patient is awake alert and oriented x3 sitting up in recliner chair. No major overnight events. Patient has no complaints other than slight dizziness when transferred to chair. No further dizziness at this time. Weaned down Levophed today at 4 micrograms/minute. Patient has been afebrile with a T-max of 99.1 in the last 24 hours. Blood pressure 117/78, heart rate sinus tachy on the monitor with a heart rate of 107 beats per minute, respiratory rate even and unlabored 18 saturating 98% with 2 L via nasal cannula. Urine output 2.5 L in the last 24 hours chest tube left with 30 mL of output mediastinal chest tube with 50 mL of output since yesterday. Patient has a drop in H&H from 10.7/32.7 to 8.4/ 26.9. H&H was repeated and resulted with 9.1/27.8 platelet count is decreased from yesterday which was [id number] today [id number]. Chest x-ray with decreased pulmonary vascular congestion. REVIEW OF SYSTEMS: 12 point ROS reviewed with patient. Pertinent positives mentioned above. Otherwise negative. PHYSICAL EXAM: GENERAL: Awake alert and oriented x3 HEENT: EOMI, Sclera non icteric, moist mucosa NECK: Supple, no JVD, trachea midline LUNGS: Clear breath sounds bilaterally. No wheezes chest tube HEART: Regular rate and rhythm. Normal S1 and S2, without murmurs ABD: Abdomen soft, nontender. Bowel sounds present EXT: No clubbing cyanosis or edema NEURO: Moving all extremities, no unilateral weakness Vital Signs (last 8hr) Date Time Temp Pulse Resp B/P (MAP) Pulse Ox O2 Delivery O2 Flow Rate FiO2 04/22/24 10:17 96 16 87/40 (56) 98 102/50 (67) 04/22/24 10:02 99 16 101/44 (63) 98 98/57 (71) 04/22/24 09:47 95 12 97/43 (61) 98 101/55 (70) 04/22/24 09:32 94 15 98/41 (60) 97 103/48 (66) 04/22/24 09:17 99 13 101/46 (64) 98 118/57 (77) 04/22/24 09:02 106 20 109/42 (64) 98 103/56 (72) 04/22/24 08:48 104 19 112/45 (67) 98 114/59 (77) 04/22/24 08:33 102 18 109/45 (66) 98 117/58 (77) 04/22/24 08:17 104 19 98/45 (62) 97 106/66 (79) 04/22/24 08:02 99 10 97/42 (60) 96 105/52 (69) 04/22/24 08:00 101 15 99/44 (62) 96 04/22/24 07:03 97.9 107 21 104/44 (64) 100 99/56 (70) 04/22/24 06:52 105 19 106/45 (65) 98 106/53 (70) 04/22/24 06:47 103 17 103/44 (63) 97 104/53 (70) 04/22/24 06:45 103 18 101/43 (62) 98 04/22/24 06:32 102 17 105/45 (65) 98 111/57 (75) 04/22/24 06:17 106 21 92/47 (62) 97 111/64 (80) 04/22/24 06:02 108 22 98/46 (63) 95 107/56 (73) 04/22/24 06:01 108 18 93/45 (61) 94 98/55 (69) 04/22/24 05:32 104 21 105/58 (74) 96 94/57 (69) 04/22/24 05:17 93 13 102/45 (64) 98 92/51 (65) 04/22/24 05:03 104 20 97/44 (61) 97 92/49 (63) 04/22/24 04:47 99 16 109/46 (67) 97 100/52 (68) 04/22/24 04:32 101 17 105/54 (71) 98 96/53 (67) 04/22/24 04:17 102 17 109/55 (73) 97 96/59 (71) 04/22/24 04:03 96 13 102/50 (67) 98 91/49 (63) 04/22/24 04:00 100 Nasal Cannula* 3 32 04/22/24 03:47 106 18 94/47 (63) 97 83/49 (60) 04/22/24 03:32 94 18 104/52 (69) 96 87/55 (66) 04/22/24 03:17 101 25 100/52 (68) 97 98/51 (67) 04/22/24 03:02 100 23 96/47 (63) 98 98/49 (65) LABS: Hematology Labs: Test 04/22/24 04:52 04/21/24 03:35 Range/Units White Blood Count 8.4 4.8-10.8 K/uL Red Blood Count 2.71 L 4.50-6.20 MIL/uL Hemoglobin 8.4 #L 14.0-18.0 g/dL Hematocrit 26.9 L 42-54 % Mean Corpuscular Volume 99.3 H 79-99 fL Mean Corpuscular Hemoglobin 31.0 27.0-33.0 pg Mean Corpuscular Hemoglobin Concent 31.2 L 32.0-36.0 g/dL Red Cell Distribution Width 13.8 11.0-15.5 % Platelet Count 114 #L 130-400 K/uL Mean Platelet Volume 9.8 7.5-10.5 fL Nucleated Red Blood Cells 0.0 0.0-0.19 % Immature Granulocyte % (Auto) 0.5 0-1 % Neutrophils (%) (Auto) 74.3 40.0-77.0 % Lymphocytes (%) (Auto) 11.3 L 21.0-51.0 % Monocytes (%) (Auto) 13.7 H 3.0-13.0 % Eosinophils (%) (Auto) 0.0 0.0-8.0 % Basophils (%) (Auto) 0.2 0.0-5.0 % Neutrophils # (Auto) 9.0 H 1.8-7.7 K/uL Lymphocytes # (Auto) 1.4 1.0-4.8 K/uL Monocytes # (Auto) 1.7 H 0.1-1.0 K/uL Eosinophils # (Auto) 0.00 0.00-0.70 K/uL Basophils # (Auto) 0.02 0.00-0.20 K/uL Absolute Immature Granulocyte (auto 0.06 0-1 K/uL Chemistry Labs: Test 04/22/24 07:47 04/22/24 04:52 04/21/24 03:35 Range/Units Whole Blood Glucose 147 #H 70-110 MG/DL Sodium Level 141 136-145 mmol/L Potassium Level 4.1 3.5-5.1 mmol/L Chloride Level 104 101-111 mmol/L Carbon Dioxide Level 32 21-32 mmol/L Blood Urea Nitrogen 12 7-18 mg/dL Creatinine 0.9 0.5-1.3 mg/dL Glomerular Filtration Rate Calc 105 >90 mL/min Random Glucose 93 70-105 mg/dL Total Calcium 7.9 L 8.5-10.1 mg/dL Ionized Calcium 1.19 1.16-1.32 MMOL/L Phosphorus Level 4.0 2.5-4.9 mg/dL Magnesium Level 2.20 1.80-2.40 mg/dL Coagulation Labs: Test 04/21/24 03:35 Range/Units Prothrombin Time 11.8 H 9.6-11.6 SEC Prothromb Time International Ratio 1.10 0.85-1.15 Activated Partial Thromboplast Time 29.4 26.3-35.5 SEC Fibrinogen 444 H 180-350 mg/dL DIAGNOSTICS / RADIOLOGY RESULTS: [ ] PLAN Follow CT surgeon recommendations Follow cardiology recommendations Multimodal pain management Monitoring H&H Monitor chest tube output Chest x-ray in the morning Transfuse if absolutely necessary to keep hemoglobin above 8 Maintain O2 sats greater than 92% Incentive spirometry Glycemic control with goal of 80-180 Referral for cardiac rehabilitation Speech to eval once patient is extubated NEURO: Minimize central acting medications as possible. Fall Precautions. Well lighted room through the day and minimize interruptions through the night to prevent acute delirium. PULMONARY: Supplemental 02 as needed Titrate Fio2 to keep Spo2 > or = 90% DuoNebs and CPT as needed IS hourly while awake for pulmonary hygiene Out of bed to chair as tolerated VAP Bundle ABGs series Neb if needed CARDIOVASCULAR: Follow hemodynamics. Titrate vasopressor to keep MAP >65 or systolic blood pressure >95mmHg Post CABG care DRIPS: Epinephrine levophed LINES: CVC GI & NUTRITION: Continue nutritional support Aspirations precautions Prokinetic agents and laxatives as needed KIDNEYS & ELECTROLYTES: Strict monitoring of intake and output Daily weights Avoid nephrotoxic agents Monitor electrolytes and replace as needed Goal urine output of 30mL/hr or 0.5mL/kg/hr ENDOCRINE: Maintain blood glucose between 100-180 at all times. Insulin sliding scale for blood glucose management INFECTIOUS DISEASE: Trend temperature. Agrawal-culture if febrile. Micro: NA Antibiotics: SCIP HEMATOLOGY & COAGULATION: Monitor H&H. Keep Hgb > 7 Transfuse 1 unit of PRBC for Hgb < 7 Transfuse 1 pack of platelets of platelets < 20, 000 Watch for any signs and symptoms of bleeding SKIN: Pressure ulcer prevention per facility protocol Rehab: PT/OT Prophylaxis: GI: Pepcid DVT: SCDs, AC per surgery Code Status: Full Resuscitation Disposition: ICU Other: Total patient care time exceeds 35 minutes excluding all procedures. Case was discussed and seen with my supervising physician. The above plan was formulated and agreed upon. ENRIQUE KOHLER Apr 22, 2024 10:49
--- NOTE | 2024-04-22 11:13 | NUR ---
WAITING ON PT. REVIEWED NOTES FROM YESTERDAY THAT STATES THEY WERE GOING TO FOLLOW POST OP ORDERED, BUT PT HAD NOT VISITED YET
[2024-04-22 11:58] LABS: HEMATOCRIT 27.8 % (42-54)
[2024-04-22] MEDS: INSULIN humuLIN R 100 UNIT/ML 3ML SQ SCH (16:20)
[2024-04-22] MEDS: BENZOCAINE/MENTH/CETYLPYRD CL 1 EACH LOZENGE MM PRN (17:09)
--- NOTE | 2024-04-22 19:00 | NUR ---
ART LINE REMOVED. ...BLOOD BAND WAS TOO TIGHT, OVER TOP OF STEPHANIE ID BAND, BLOOD BAND AND FALL RISK BAND ALL HAD TO BE CUT AND REPACED TO REMOVE A LINE. BLOOD BAND REMOVED, ID STICKER AND COLLECTION INFO ATTACHED TO BLUE BAND AND REPLACED ON PATIENT, ALL INFO FROM BLOOD BAND INTACT
--- NOTE | 2024-04-22 19:45 | HMCIMG ---
CHEST 1VW HISTORY: Post chest tube removal COMPARISON: Same day x-ray FINDINGS: A frontal projection of the chest was obtained. Prominent interstitial markings are seen with possible superimposed infiltrates. Poststernotomy changes are seen. The heart is enlarged. Degenerative changes of the thoracolumbar spine are present. All the lines and tubes are again seen in place. IMPRESSION: 1. Prominent interstitial markings are seen with possible superimposed infiltrates.
--- NOTE | 2024-04-22 20:03 | HMCIMG ---
CHEST 1VW HISTORY: Post CABG COMPARISON: 04/21/2024 FINDINGS: A frontal projection of the chest was obtained. Mild bilateral pulmonary infiltrates are seen may be related to mild pulmonary vascular congestion with possible superimposed pneumonitis. Poststernotomy changes are seen. The heart is enlarged. Degenerative changes of the thoracolumbar spine are present. All the lines and tubes are again seen in place. Poor inspiratory effort is seen. No evidence of aortic calcification is seen. IMPRESSION: 1. Mild bilateral pulmonary infiltrates are seen may be related to mild pulmonary vascular congestion with possible superimposed pneumonitis.
[2024-04-23] VITALS (74 sets, daily range): BP systolic 87–117; BP diastolic 40–61; PULSE 70–101; RESP 13–47; TEMP 98.6–100.4; O2SAT 93–95
[2024-04-23 04:26] LABS: HEMATOCRIT 26.5 % (42-54); MEAN CORPUSCULAR HEMOGLOBIN 31.3 pg (27.0-33.0); MEAN CORPUSCULAR HGB CONC 31.7 g/dL (32.0-36.0); MEAN CORPUSCULAR VOLUME 98.9 fL (79-99); RED BLOOD CELL COUNT(AUTO) 2.68 MIL/uL (4.50-6.20); RED CELL DISTRIBUTION WIDTH 13.2 % (11.0-15.5); WHITE BLOOD COUNT (AUTO) 5.5 K/uL (4.8-10.8)
[2024-04-23 04:43] LABS: CREATININE 0.9 mg/dL (0.5-1.3); POTASSIUM 4.1 mmol/L (3.5-5.1)
--- NOTE | 2024-04-23 08:42 | PN ---
[facility] CARDIOLOGY PROGRESS NOTE Date Patient Seen: Apr 23, 2024 Time of Visit: 08:42 Interval History: [ S/p CABG x2, MEDRANO to LAD and unroofing of the RCA 04/20/2024.] Physical Examination: GENERAL: [No acute distress.] HEAD: [Normal with no signs of head trauma.] EYES: [PERRLA, EOMI, conjunctiva and sclera normal.] ENT: [Hearing grossly intact, normal oropharynx.] NECK: [Supple without JVD. There is no tenderness, lymphadenopathy, or masses. No thyromegaly. Normal carotid upstrokes without bruits.] LUNGS: [Clear breath sounds bilaterally. There are right basilar rales one third of the way up the chest. No wheezes, or rhonchi.] HEART: [Normal rate and rhythm. Normal S1 and S2 without mumurs, gallop or rub.] VASC: [Peripheral pulses +2 bilaterally.] ABD: [Bowel sounds normal, soft, nontender, no masses, no organomegaly. No audible bruits.] : [Not examined] LYMPH: [No lymphadenopathy noted.] EXT: [No clubbing, cyanosis or edema.] SKIN: [No rashes or lesions noted.] NEURO: [Awake, alert, and oriented x3. No focal sensory or strength deficits noted.] Laboratory: [ ] Hematology Labs: Test 04/23/24 03:52 Range/Units White Blood Count 5.5 # 4.8-10.8 K/uL Red Blood Count 2.68 L 4.50-6.20 MIL/uL Hemoglobin 8.4 L 14.0-18.0 g/dL Hematocrit 26.5 L 42-54 % Mean Corpuscular Volume 98.9 79-99 fL Mean Corpuscular Hemoglobin 31.3 27.0-33.0 pg Mean Corpuscular Hemoglobin Concent 31.7 L 32.0-36.0 g/dL Red Cell Distribution Width 13.2 11.0-15.5 % Platelet Count 116 L 130-400 K/uL Mean Platelet Volume 10.0 7.5-10.5 fL Nucleated Red Blood Cells 0.0 0.0-0.19 % Chemistry Labs: Test 04/23/24 03:53 04/23/24 03:52 Range/Units Whole Blood Glucose 130 H 70-110 MG/DL Sodium Level 137 136-145 mmol/L Potassium Level 4.1 3.5-5.1 mmol/L Chloride Level 100 L 101-111 mmol/L Carbon Dioxide Level 32 21-32 mmol/L Blood Urea Nitrogen 12 7-18 mg/dL Creatinine 0.9 0.5-1.3 mg/dL Glomerular Filtration Rate Calc 105 >90 mL/min Random Glucose 129 H 70-105 mg/dL Total Calcium 8.3 L 8.5-10.1 mg/dL Diagnostics / Radiology: [Copy/Paste Echos/Imaging Report here] Impression and Plan: [ Acute Inferior wall acute STEMI, status post TNKase, 04/13/2024, POA Underlying history of coronary artery disease, POA Family history of premature coronary artery disease, POA Type 2 diabetes mellitus, POA Hypertension, POA Hyperlipidemia, POA S/P CABG x2 MEDRANO to LAD and RSVG to PDA- on 04/[address] 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 Lipitor 40 mg once a day. - PT, OT, cardiac rehabilitation. -Required 1 U PRBCs 04/22. Thank you for this consult. Salud Crocker MD ] SALUD CROCKER MD Apr 23, 2024 08:42
--- NOTE | 2024-04-23 09:15 | PN ---
[facility] PROGRESS NOTE Date of Service: Apr 23, 2024 Time of Service: 09:15 SUBJECTIVE: 04/17 patient seen at bedside, no acute events overnight. Patient has been evaluated by Cardiology and a coronary CTA was performed, they are recommending cardio vascular surgery recommendations. He is likely to be taken do surgery tomorrow, we will follow up with CV surgery. Vitals and labs are relatively unremarkable. 04/18 patient seen at bedside, no acute events overnight. Pending CABG with CV surgery today, we will follow up postprocedure. Vitals and labs are relatively unremarkable. 04/19 patient seen at bedside, no acute events overnight. CABG rescheduled for Saturday. Vitals and labs are relatively unremarkable. 04/20 patient is seen and examined today during my rounding, he is now in the ICU, intubated, mechanical ventilation, status post CABG by Cardiothoracic surgeon today. Tolerated procedure well. at bedside, updated. 04/21 the patient has been seen and examined during my rounding, the patient is successfully extubated, on supplemental oxygen via nasal cannula saturating 98%, hemodynamically stable, BP 104/54, afebrile. He is tolerating clear liquid, denied chest pain, no shortness a breath, no nausea, no vomiting. Currently the patient on low-dose epinephrine, low-dose Levophed, on insulin drip. Chest tube in place. 04/23 the patient has been seen and examined during my rounding today, comfortably in bed, spiking low-grade fever, per my discussion with the patient and the was at the bedside, he is having mild cough, per the he is on mildly congested, he denied chest pain, no shortness a breath, nausea, no vomiting, no abdominal pain, no diarrhea, no dysuria. REVIEW OF SYSTEMS 12 point review of systems negative unless noted in HPI PHYSICAL EXAM GENERAL APPEARANCE: Patient is intubated, on mechanical ventilation. NEUROLOGICAL: Cranial nerves II-XII grossly intact. Motor is 5/5 in bilateral upper and lower extremities proximal to distal. No sensory deficits. HEENT: Face is symmetric. Pupils are equal and reactive. Extraocular movements are intact. NECK: Supple. No JVD. No thyromegaly. No submental, submandibular, pre- /postauricular, occipital or supraclavicular lymphadenopathy. CHEST: Normal chest expansion. No Telemetry. LUNGS: Absence of any rales, rhonchi or any wheezing. CARDIOVASCULAR: Regular. S1 and S2 normal. No appreciable rubs, murmurs or gallops. ABDOMEN: Soft, nontender, and nondistended. There is no rebound, voluntary guarding, or rigidity. : Deferred. No [place]. EXTREMITIES: Non-edematous and not cyanotic. No clubbing. Good capillary refill. SKIN: No skin breakdown. Vital Signs (last 8hr) Date Time Temp Pulse Resp B/P (MAP) Pulse Ox O2 Delivery O2 Flow Rate FiO2 04/23/24 07:17 100.4 04/23/24 07:00 99 16 98/50 93 Nasal Cannula 1.0 04/23/24 06:00 95 16 97/45 94 Nasal Cannula 1.0 04/23/24 05:00 95 16 97/49 93 Nasal Cannula 1.0 04/23/24 04:00 98 16 99/50 94 Nasal Cannula 1.0 04/23/24 04:00 93 Nasal Cannula* 1 24 04/23/24 03:30 100.4 98 21 106/50 93 Nasal Cannula 1.0 04/23/24 03:00 100 17 98/46 93 Nasal Cannula 1.0 04/23/24 02:30 100 18 106/49 92 Nasal Cannula 1.0 04/23/24 02:00 100 16 103/51 92 Nasal Cannula 1.0 04/23/24 01:32 96 13 102/44 94 Nasal Cannula 1.0 LABS: Laboratory: Test 04/23/24 03:53 04/23/24 03:52 Range/Units Whole Blood Glucose 130 H 70-110 MG/DL White Blood Count 5.5 # 4.8-10.8 K/uL Red Blood Count 2.68 L 4.50-6.20 MIL/uL Hemoglobin 8.4 L 14.0-18.0 g/dL Hematocrit 26.5 L 42-54 % Mean Corpuscular Volume 98.9 79-99 fL Mean Corpuscular Hemoglobin 31.3 27.0-33.0 pg Mean Corpuscular Hemoglobin Concent 31.7 L 32.0-36.0 g/dL Red Cell Distribution Width 13.2 11.0-15.5 % Platelet Count 116 L 130-400 K/uL Mean Platelet Volume 10.0 7.5-10.5 fL Nucleated Red Blood Cells 0.0 0.0-0.19 % Sodium Level 137 136-145 mmol/L Potassium Level 4.1 3.5-5.1 mmol/L Chloride Level 100 L 101-111 mmol/L Carbon Dioxide Level 32 21-32 mmol/L Blood Urea Nitrogen 12 7-18 mg/dL Creatinine 0.9 0.5-1.3 mg/dL Glomerular Filtration Rate Calc 105 >90 mL/min Random Glucose 129 H 70-105 mg/dL Total Calcium 8.3 L 8.5-10.1 mg/dL Current Medications Medications (Trade) Dose Ordered Sig/Wes Route PRN Reason Start Time Stop Time Status Last Admin Dose Admin Acetaminophen (TYLenol 325MG TAB) 650 mg Q4H PRN PO Temp >38.3C(AFTER EXTUBATION) 04/20/24 10:00 05/20/24 09:59 Acetaminophen (TYLenol 325MG TAB) 650 mg Q6H PRN PO MILD PAIN (1-3) 04/17/24 22:00 05/17/24 21:59 04/23/24 07:17 650 MG Acetaminophen (TYLenol 650MG SUPPOSITORY) 650 mg Q4H PRN RC Temp >38.3C WHILE INTUBATED 04/20/24 10:00 05/20/24 09:59 Acetaminophen (acetaMINOPHEN) 1,000 mg Q6H6 IV 04/20/24 13:00 04/21/24 12:59 DC 04/21/24 11:38 1,000 MG Albumin Human 250 ml @ 0 mls/hr AD PRN IV IF HEMODYNAMICALLY UNSTABLE 04/20/24 10:00 04/21/24 08:04 DC 04/21/24 08:04 100 MLS/HR Aminocaproic Acid 75402 mg/Sodium Chloride 310 ml @ 25 mls/hr AD IV 04/20/24 10:00 04/20/24 10:42 DC Aminocaproic Acid 01507 mg/Sodium Chloride 480 ml @ 0 mls/hr AD PRN IV BLEEDING CONTROL 04/20/24 06:30 05/20/24 06:29 Aspirin (Aspirin 81mg Chew Tab) 81 mg DAILY PO 04/15/24 14:00 05/15/24 13:59 04/22/24 09:04 81 MG Atorvastatin Calcium (LIPItor 40MG) 40 mg HS PO 04/15/24 21:00 05/15/24 20:59 04/22/24 21:18 40 MG Benzocaine (Cepacol Sore Throat Lozenge) 1 each Q4H PRN MM SORE THROAT 04/22/24 17:00 05/22/24 16:59 04/22/24 17:09 1 EACH Calcium Gluconate 1 gm/Sodium Chloride 60 ml @ 200 mls/hr AD PRN IV HYPOCALCEMIA 04/20/24 10:00 05/20/24 09:59 04/21/24 04:13 200 MLS/HR Cefazolin Sodium (Ancef) 2 gm ONCALL PRN IVP SURGERY 04/19/24 14:30 04/20/24 10:55 DC Cefazolin Sodium (Ancef) 2 gm Q8H IVPB 04/20/24 15:00 04/21/24 07:01 DC 04/21/24 06:44 2 GM Clopidogrel Bisulfate (plaVIX 75MG) 75 mg DAILY PO 04/15/24 14:00 04/15/24 18:27 DC 04/15/24 14:15 75 MG Dexmedetomidine/ Sodium Chloride (PRECEdex 400MCG/ 100ML-NS) 400 mcg PROTOCOL IV 04/20/24 10:00 04/21/24 09:59 DC 04/20/24 12:53 400 MCG Dexmedetomidine/ Sodium Chloride (PRECEdex 400MCG/ 100ML-NS) 400 mcg PROTOCOL IV 04/20/24 13:00 04/20/24 14:32 DC Dextrose (D50w) 50 ml AD PRN IV HYPOGLYCEMIA PROTOCOL 04/20/24 10:00 05/20/24 09:59 Docusate Sodium (COLace 100MG CAP) 100 mg BID PO 04/20/24 21:00 05/20/24 20:59 04/22/24 21:17 100 MG Enoxaparin Sodium (Lovenox) 30 mg DAILY SQ 04/23/24 09:00 05/23/24 08:59 Epinephrine HCl 10 mg/Sodium Chloride 250 ml @ 12.438 mls/ hr AD PRN IV POST-OP CARDIOVASCULAR ORDERS 04/20/24 10:00 04/25/24 09:59 Epinephrine HCl 10 mg/Sodium Chloride 250 ml @ 0 mls/hr AD PRN IV TITRATE 04/20/24 06:30 04/20/24 10:55 DC Famotidine (Pepcid 20mg Vial) 20 mg BID IV 04/20/24 21:00 05/20/24 20:59 04/22/24 21:18 20 MG Famotidine (Pepcid 20mg Tab) 20 mg BID PO 04/15/24 21:00 04/20/24 09:50 DC 04/19/24 20:39 20 MG Furosemide (LASix 20MG TAB) 20 mg Q12H PO 04/22/24 09:00 05/22/24 08:59 04/22/24 09:04 20 MG Furosemide (LASix 20MG VIAL) 20 mg Q12H IV 04/21/24 09:00 04/22/24 08:59 DC 04/21/24 20:17 20 MG Glucagon (Glucagon 1mg Kit) 1 mg AD PRN IM HYPOGLYCEMIA PROTOCOL 04/20/24 10:00 05/20/24 09:59 Heparin Sodium (Porcine) (HEParin 5,000 UNIT VIAL) *calculation based on ACTUAL B... AD PRN IV HEPARIN PROTOCOL 04/15/24 14:00 04/20/24 09:50 DC Heparin Sodium/ Dextrose 250 ml @ 0 mls/hr Q6H IV 04/15/24 14:00 04/20/24 09:50 DC 04/19/24 02:00 10.5 MLS/HR Hydralazine HCl (APRESOLine 20MG INJ) 10 mg Q6H PRN IV ADMINISTER FOR SBP > 160 04/15/24 14:00 04/20/24 09:50 DC Insulin Human Regular (humuLIN R 100 UNIT/ML 3ML) INSULIN SLIDING SCAL... ACHS SQ 04/15/24 16:30 04/20/24 09:50 DC Insulin Human Regular (humuLIN R 100 UNIT/ML 3ML) INSULIN SLIDING SCAL... ACHS SQ 04/22/24 16:30 05/22/24 16:29 Insulin Human Regular 100 unit/ Sodium Chloride 100 ml @ 0 mls/hr AD IV 04/20/24 10:00 04/22/24 09:59 DC 04/21/24 06:20 3 MLS/HR Lactulose (Constulose 20gm/ 30ml Udcup) 20 gm BID PRN PO CONSTIPATION 04/20/24 10:00 05/20/24 09:59 Magnesium Hydroxide (Milk Of Magnesium 30ml) 30 ml DAILY PRN PO CONSTIPATION 04/20/24 10:00 05/20/24 09:59 Magnesium Sulfate 50 ml @ 12.5 mls/hr AD PRN IV MAG LEVEL LESS THAN 2.0 04/20/24 10:00 05/20/24 09:59 04/21/24 01:33 12.5 MLS/HR Magnesium Sulfate 50 ml @ 0 mls/hr PROTOCOL IV 04/15/24 14:00 04/20/24 09:50 DC Metoprolol Tartrate (loprESSOR) 12.5 mg BID PO 04/16/24 21:00 04/20/24 09:50 DC 04/20/24 05:24 12.5 MG Metoprolol Tartrate (loprESSOR) 12.5 mg BID PO 04/22/24 09:00 05/22/24 08:59 Metoprolol Tartrate (loprESSOR) 25 mg ONCE STAT PO 04/15/24 12:43 04/15/24 12:46 DC 04/15/24 12:52 25 MG Morphine Sulfate (morPHINE 2MG SYG) 0.5 mg Q2H PRN IV MODERATE PAIN (4-6) 04/20/24 10:00 04/21/24 09:59 DC 04/20/24 12:52 0.5 MG Morphine Sulfate (morPHINE 2MG SYG) 1 mg Q2H PRN IV SEVERE PAIN (7-10) 04/20/24 10:00 04/21/24 09:59 DC Nitroglycerin (Nitrostat) 0.4 mg AD PRN SL CHEST PAIN 04/15/24 22:30 04/20/24 09:50 DC Nitroglycerin/ Dextrose 0 ml @ 0 mls/hr AD IV 04/20/24 10:00 04/23/24 09:59 Norepinephrine Bitartrate 250 ml @ 0 mls/hr AD PRN IV TITRATE 04/20/24 06:30 04/20/24 10:55 DC Norepinephrine Bitartrate 250 ml @ 0 mls/hr AD PRN IV POST-OP CARDIOVASCULAR ORDERS 04/20/24 11:00 05/20/24 10:59 04/21/24 11:39 11.3 MLS/HR Norepinephrine Bitartrate 8 mg/ Dextrose 250 ml @ 0 mls/hr AD PRN IV POST-OP CARDIOVASCULAR ORDERS 04/20/24 10:00 04/20/24 10:57 DC Ondansetron HCl (zoFRAN 4MG INJ) 4 mg Q6H PRN IV NAUSEA/VOMITING 04/20/24 10:00 05/20/24 09:59 04/22/24 04:46 4 MG Potassium Phosphate 250 ml @ 42 mls/hr AD PRN IV LOW PHOS LEVEL 04/20/24 10:00 05/20/24 09:59 Potassium Chloride 100 ml @ 100 mls/hr AD PRN IV POTASSIUM PROTOCOL 04/15/24 14:00 04/20/24 09:50 DC Potassium Chloride 100 ml @ 100 mls/hr AD PRN IV HYPOKALEMIA 04/20/24 10:00 05/20/24 09:59 04/20/24 22:34 100 MLS/HR Potassium Chloride (K-Dur/Klor-Con 20meq) 20 meq AD PRN PO POTASSIUM PROTOCOL 04/15/24 14:00 04/20/24 09:50 DC 04/15/24 14:14 20 MEQ Potassium Chloride (KCl 10% Elixir 20meq/15ml) 20 meq AD PRN PO POTASSIUM PROTOCOL 04/15/24 14:00 04/20/24 09:50 DC Propofol 100 ml @ 0 mls/hr AD PRN IV SEDATION 04/20/24 10:00 04/24/24 09:59 Sacubitril/ Valsartan (Entresto 24 Mg-26 Mg Tablet) 1 each BID PO 04/15/24 21:00 04/20/24 09:50 DC 04/19/24 20:39 1 EACH Sodium Bicarbonate (Sodium Bicarb 50meq 50ml Vial) 50 meq AD PRN IV OTHER[SEE DOSING INSTRUCTIONS] 04/20/24 10:00 04/23/24 09:59 04/20/24 15:38 150 MEQ Sodium Chloride 500 ml @ 0 mls/hr AD IV 04/20/24 10:00 05/20/24 09:59 Sodium Chloride 1,000 ml @ 10 mls/hr ONCE IV 04/20/24 10:00 04/21/24 09:59 DC 04/20/24 22:46 10 MLS/HR Sodium Chloride (NS Flush 10ml) 10 ml Q8H PRN IVP IV LINE FLUSH 04/20/24 10:00 05/20/24 09:59 Tramadol HCl (UltRAM) 25 mg Q6H PRN PO MODERATE PAIN (4-6) 04/20/24 10:00 04/25/24 09:59 04/22/24 04:46 25 MG Tramadol HCl (UltRAM) 50 mg Q6H PRN PO SEVERE PAIN (7-10) 04/20/24 10:00 04/25/24 09:59 04/21/24 20:17 50 MG DIAGNOSTICS / RADIOLOGY: [ ] ASSESSMENT: Acute Inferior wall acute STEMI, status post TNKase, 04/13/2024, POA Underlying history of coronary artery disease, POA Family history of premature coronary artery disease, POA Type 2 diabetes mellitus, POA Hypertension, POA Hyperlipidemia, POA PLAN: Patient remains admitted to the intensive care unit Continue telemetry monitoring Status post CABG today, tolerated procedure well Continue to follow Cardiothoracic input and recommendation Cardiology input noted and appreciated Continue supplemental oxygen via nasal cannula Patient is spiking fever, follow results of septic workup Infectious disease consultation requested, follow input and recommendation Electrolytes replacement IV per protocol All labs will be repeated in the morning GI prophylaxis with Pepcid, DVT prophylaxis with heparin Plan of action discussed, all questions answered, agreed and understood the information provided. Total ICU time spent greater than 30 minutes. CARLEY HALL MD Apr 23, 2024 09:15
--- NOTE | 2024-04-23 10:09 | PN ---
[facility] PROGRESS NOTE Date Patient Seen: Apr 23, 2024 Time of Visit: 10:07 Supervising Physician: Alek Mane MD Primary Care Physician: Dr. Valentin Persaud Outpatient Specialists: NA Inpatient Consults: Dr. Trivedi, Dr. Lincoln PROBLEM LIST: Acute Inferior wall STEMI, status post TNKase, 04/13/2024, POA S/P LHC on 04/15/24 Multivessel CAD S/P CABG x2 MEDRANO to LAD and RSVG to PDA- on 04/[address] Olmos Acute on chronic urinary retention- history of ureteral stricture S/P IR suprapubic catheter placement 04/20 Underlying history of coronary artery disease, POA Family history of premature coronary artery disease, POA Type 2 diabetes mellitus, POA Hypertension, POA Hyperlipidemia, POA History of hypertension, diabetes mellitus, hyperlipidemia, urethroplasty due to ureteral stricture, WI with per cardiac stent INTERVAL HISTORY: 04/21/24-day 1. status post CABG x2. As per RN overnight patient had to get emergently a suprapubic fc per cystoscopy by Dr. Duggan due to history of urinary stricture and urinary retention. weaning off Levophed currently at 7 micrograms/minute and epinephrine at 0.01 micrograms/kilogram per minute. Patient is calm cooperative awake alert and oriented x3 sitting up on hospital bed. No major complaints other than incisional tenderness with movement and cough. Patient and sinus tachycardia 113 beats per minute, respiratory rate of 20 blood pressure improving 125/61 with a map of 82 we will continue to wean down pressors per CV protocol O2 sat 99% with 2 L via nasal cannula on chest x- ray with increased pulmonary vascular congestion patient was given a dose of Lasix this morning per Cardiology and continues with scheduled doses of Lasix tomorrow morning. On WBCs 12.2 as expected postop H&H of 10.7/32.7 platelet count is normal. Kidneys are doing well with the creatinine of 0.9 GFR of 105 sodium 150 potassium 4.3 chloride 114. Patient is starting clear liquid diet today. 04/22-patient is awake alert and oriented x3 sitting up in recliner chair. No major overnight events. Patient has no complaints other than slight dizziness when transferred to chair. No further dizziness at this time. Weaned down Levophed today at 4 micrograms/minute. Patient has been afebrile with a T-max of 99.1 in the last 24 hours. Blood pressure 117/78, heart rate sinus tachy on the monitor with a heart rate of 107 beats per minute, respiratory rate even and unlabored 18 saturating 98% with 2 L via nasal cannula. Urine output 2.5 L in the last 24 hours chest tube left with 30 mL of output mediastinal chest tube with 50 mL of output since yesterday. Patient has a drop in H&H from 10.7/32.7 to 8.4/ 26.9. H&H was repeated and resulted with 9.1/27.8 platelet count is decreased from yesterday which was [id number] today [id number]. Chest x-ray with decreased pulmonary vascular congestion. 04/23/24- patient is awake alert and oriented x3. He does report a cough that is nonproductive. patient had T-max this morning of 100.4, urine output 1.6 L with a negative balance of 185 mL. Patient with temperature of 100.4 this morning heart rate in the 90s respiratory rate of 20 unlabored blood pressure 106/50 with Levophed at 2 micrograms/minute restarted this morning, saturating 93% with 1 L via. WBCs are normal H&H 8.4/26.5 platelet count is 179375. Improving saline from yesterday. Chemistry unremarkable kidneys are doing well creatinine is 0.9 and GFR of 105 Chest x-ray with slight increase increased pulmonary vascular congestion and right lower base atelectasis. REVIEW OF SYSTEMS: 12 point ROS reviewed with patient. Pertinent positives mentioned above. Otherwise negative. PHYSICAL EXAM: GENERAL: Awake alert and oriented x3 HEENT: EOMI, Sclera non icteric, moist mucosa NECK: Supple, no JVD, trachea midline LUNGS: Clear breath sounds bilaterally. No wheezes chest tube HEART: Regular rate and rhythm. Normal S1 and S2, without murmurs ABD: Abdomen soft, nontender. Bowel sounds present EXT: No clubbing cyanosis or edema NEURO: Moving all extremities, no unilateral weakness Vital Signs (last 8hr) Date Time Temp Pulse Resp B/P (MAP) Pulse Ox O2 Delivery O2 Flow Rate FiO2 04/23/24 07:17 100.4 04/23/24 07:00 99 16 98/50 93 Nasal Cannula 1.0 04/23/24 06:00 95 16 97/45 94 Nasal Cannula 1.0 04/23/24 05:00 95 16 97/49 93 Nasal Cannula 1.0 04/23/24 04:00 98 16 99/50 94 Nasal Cannula 1.0 04/23/24 04:00 93 Nasal Cannula* 1 24 04/23/24 03:30 100.4 98 21 106/50 93 Nasal Cannula 1.0 04/23/24 03:00 100 17 98/46 93 Nasal Cannula 1.0 04/23/24 02:30 100 18 106/49 92 Nasal Cannula 1.0 LABS: Hematology Labs: Test 04/23/24 03:52 Range/Units White Blood Count 5.5 # 4.8-10.8 K/uL Red Blood Count 2.68 L 4.50-6.20 MIL/uL Hemoglobin 8.4 L 14.0-18.0 g/dL Hematocrit 26.5 L 42-54 % Mean Corpuscular Volume 98.9 79-99 fL Mean Corpuscular Hemoglobin 31.3 27.0-33.0 pg Mean Corpuscular Hemoglobin Concent 31.7 L 32.0-36.0 g/dL Red Cell Distribution Width 13.2 11.0-15.5 % Platelet Count 116 L 130-400 K/uL Mean Platelet Volume 10.0 7.5-10.5 fL Nucleated Red Blood Cells 0.0 0.0-0.19 % Chemistry Labs: Test 04/23/24 03:53 04/23/24 03:52 Range/Units Whole Blood Glucose 130 H 70-110 MG/DL Sodium Level 137 136-145 mmol/L Potassium Level 4.1 3.5-5.1 mmol/L Chloride Level 100 L 101-111 mmol/L Carbon Dioxide Level 32 21-32 mmol/L Blood Urea Nitrogen 12 7-18 mg/dL Creatinine 0.9 0.5-1.3 mg/dL Glomerular Filtration Rate Calc 105 >90 mL/min Random Glucose 129 H 70-105 mg/dL Total Calcium 8.3 L 8.5-10.1 mg/dL DIAGNOSTICS / RADIOLOGY RESULTS: IMAGING REPORT Signed PATIENT: CELE MAGDALENO MR#: [id number] : 1975 SEX: M AGE: 49 LOCATION: [facility] ORDER [id number] STATUS: ADM IN REPORT#: [id number] SERVICE [id number] REASON: post cabg ORDERING PHYSICIAN: SOFIE OLMOS MD PROCEDURE: CXR1VW - CHEST 1VW CHEST 1VW HISTORY: Post CABG COMPARISON: 04/22/2024 FINDINGS: A frontal projection of the chest was obtained. Mild bilateral pulmonary infiltrates are seen may be related to mild pulmonary vascular congestion with possible superimposed pneumonitis. Poststernotomy changes are seen. The heart is enlarged. Degenerative changes of the thoracolumbar spine are present. Right venous catheter is again seen with distal tip in the plane of the superior vena cava. No evidence of aortic calcification is seen. IMPRESSION: 1. Bilateral pulmonary infiltrates are seen suggestive of pulmonary vascular congestion with possible superimposed pneumonitis. DICTATED BY: RALPH TRIPATHI MD DATE: 04/23/24 113 ELECTRONICALLY SIGNED BY: RALPH TRIPATHI MD DATE: 04/23/[address] surgeon recommendations Follow cardiology recommendations Multimodal pain management Monitoring H&H Monitor chest tube output Chest x-ray in the morning Transfuse if absolutely necessary to keep hemoglobin above 8 Maintain O2 sats greater than 92% Incentive spirometry Glycemic control with goal of 80-180 Referral for cardiac rehabilitation Speech to eval once patient is extubated Resp cultures Blood cultures lactic acid flu and covid swab start Zosyn NEURO: Minimize central acting medications as possible. Fall Precautions. Well lighted room through the day and minimize interruptions through the night to prevent acute delirium. PULMONARY: Supplemental 02 as needed Titrate Fio2 to keep Spo2 > or = 90% DuoNebs and CPT as needed IS hourly while awake for pulmonary hygiene Out of bed to chair as tolerated VAP Bundle ABGs series Neb if needed CARDIOVASCULAR: Follow hemodynamics. Titrate vasopressor to keep MAP >65 or systolic blood pressure >95mmHg Post CABG care DRIPS: Epinephrine levophed LINES: CVC GI & NUTRITION: Continue nutritional support Aspirations precautions Prokinetic agents and laxatives as needed KIDNEYS & ELECTROLYTES: Strict monitoring of intake and output Daily weights Avoid nephrotoxic agents Monitor electrolytes and replace as needed Goal urine output of 30mL/hr or 0.5mL/kg/hr ENDOCRINE: Maintain blood glucose between 100-180 at all times. Insulin sliding scale for blood glucose management INFECTIOUS DISEASE: Trend temperature. Agrawal-culture if febrile. Micro: NA Antibiotics: SCIP HEMATOLOGY & COAGULATION: Monitor H&H. Keep Hgb > 7 Transfuse 1 unit of PRBC for Hgb < 7 Transfuse 1 pack of platelets of platelets < 20, 000 Watch for any signs and symptoms of bleeding SKIN: Pressure ulcer prevention per facility protocol Rehab: PT/OT Prophylaxis: GI: Pepcid DVT: SCDs, AC per surgery Code Status: Full Resuscitation Disposition: ICU Other: Total patient care time exceeds 35 minutes excluding all procedures. Case was discussed and seen with my supervising physician. The above plan was formulated and agreed upon. ENRIQUE KOHLER [facility] Apr 23, 2024 10:09
[2024-04-23] MEDS: cefTRIAXone 1G VIAL ONE (10:26)
[2024-04-23] MEDS: ENOXAPARIN SODIUM 30 MG/0.3 ML SQ SCH (10:30)
[2024-04-23] MEDS ORDERED: 0.9%NACL 50ML IV SCH (10:30)
[2024-04-23] MEDS: ZOSYN 3.375GM +NS 50ML IVPB SCH (10:30)
[2024-04-23] MEDS: miDODRine HCL 5 MG TABLET PO SCH (10:38)
--- NOTE | 2024-04-23 11:34 | HMCIMG ---
CHEST 1VW HISTORY: Post CABG COMPARISON: 04/22/2024 FINDINGS: A frontal projection of the chest was obtained. Mild bilateral pulmonary infiltrates are seen may be related to mild pulmonary vascular congestion with possible superimposed pneumonitis. Poststernotomy changes are seen. The heart is enlarged. Degenerative changes of the thoracolumbar spine are present. Right venous catheter is again seen with distal tip in the plane of the superior vena cava. No evidence of aortic calcification is seen. IMPRESSION: 1. Bilateral pulmonary infiltrates are seen suggestive of pulmonary vascular congestion with possible superimposed pneumonitis.
--- NOTE | 2024-04-23 16:16 | PN ---
SUBJECTIVE: A 49-year-old gentleman status post CABG and unroofing of coronary artery. Postoperative day #3. OBJECTIVE: GENERAL: Awake, alert, in no acute distress. VITAL SIGNS: Stable as recorded in medical record. CHEST: Sternum stable. Incision sealed. LUNGS: Clear. EXTREMITIES: Warm, well perfused. No evidence of DVT, hematoma or infection. ASSESSMENT AND PLAN: Status post coronary artery bypass graft and unroofing of coronary artery. 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 An EKG has been isoelectric. He underwent a bypass to the LAD and the PDA. * Hypertension. The patient had a syncopal episode and therefore we will check hemoglobin and we will hold his Lasix. * Coronary artery disease. Beta blockers were stopped due to the patient's blood pressure dropped in the 80s where recommended increase fluid intake and hold on beta blockers. Use Benadryl as needed. * Dyslipidemia. Lipitor 40 mg once a day. * Out of bed in a chair, improve hydration. TID: [id number] RECEIPT: [id number]
[2024-04-23 20:11] LABS: RAPID GROUP A STREP negative (NEGATIVE)
[2024-04-23 20:21] LABS: COVID19 (SARS ANTIGEN RAPID) PRESUMPTIVE NEGATIVE (NEGATIVE); INFLUENZA TYPE A Negative For Type A (NEGATIVE); INFLUENZA TYPE B Negative For Type B (NEGATIVE)
[2024-04-23] MEDS: FAMOTIDINE 20MG TAB PO SCH (21:26)
--- NOTE | 2024-04-23 23:23 | NUR ---
Patient informed of pending transfer to room 204. at bedside. Awaiting callback from nurse to give report.Tele pack #4 assigned.
[2024-04-24] VITALS (9 sets, daily range): BP systolic 97–115; BP diastolic 50–61; PULSE 66–91; RESP 16–20; TEMP 98–100.1; O2SAT 95
[2024-04-24 04:01] LABS: CREATININE 0.8 mg/dL (0.5-1.3); POTASSIUM 3.7 mmol/L (3.5-5.1)
[2024-04-24 04:25] LABS: MEAN CORPUSCULAR HEMOGLOBIN 31.2 pg (27.0-33.0); MEAN CORPUSCULAR HGB CONC 32.5 g/dL (32.0-36.0); MEAN CORPUSCULAR VOLUME 95.9 fL (79-99); RED BLOOD CELL COUNT(AUTO) 2.18 MIL/uL (4.50-6.20); RED CELL DISTRIBUTION WIDTH 12.9 % (11.0-15.5); WHITE BLOOD COUNT (AUTO) 4.1 K/uL (4.8-10.8)
[2024-04-24 04:32] LABS: HEMATOCRIT 20.9 % (42-54)
--- NOTE | 2024-04-24 08:37 | PN ---
[facility] CARDIOLOGY PROGRESS NOTE Date Patient Seen: Apr 24, 2024 Time of Visit: 08:35 Interval History: [ S/p CABG x2, MEDRANO to LAD and unroofing of the RCA 04/20/2024.] Physical Examination: GENERAL: [No acute distress.] HEAD: [Normal with no signs of head trauma.] EYES: [PERRLA, EOMI, conjunctiva and sclera normal.] ENT: [Hearing grossly intact, normal oropharynx.] NECK: [Supple without JVD. There is no tenderness, lymphadenopathy, or masses. No thyromegaly. Normal carotid upstrokes without bruits.] LUNGS: [Clear breath sounds bilaterally. There are right basilar rales one third of the way up the chest. No wheezes, or rhonchi.] HEART: [Normal rate and rhythm. Normal S1 and S2 without mumurs, gallop or rub.] VASC: [Peripheral pulses +2 bilaterally.] ABD: [Bowel sounds normal, soft, nontender, no masses, no organomegaly. No audible bruits.] : [Not examined] LYMPH: [No lymphadenopathy noted.] EXT: [No clubbing, cyanosis or edema.] SKIN: [No rashes or lesions noted.] NEURO: [Awake, alert, and oriented x3. No focal sensory or strength deficits noted.] Laboratory: [ ] Hematology Labs: Test 04/24/24 04:16 Range/Units White Blood Count 4.1 L 4.8-10.8 K/uL Red Blood Count 2.18 L 4.50-6.20 MIL/uL Hemoglobin 6.8 *L 14.0-18.0 g/dL Hematocrit 20.9 #*L 42-54 % Mean Corpuscular Volume 95.9 79-99 fL Mean Corpuscular Hemoglobin 31.2 27.0-33.0 pg Mean Corpuscular Hemoglobin Concent 32.5 32.0-36.0 g/dL Red Cell Distribution Width 12.9 11.0-15.5 % Platelet Count 128 L 130-400 K/uL Mean Platelet Volume 9.6 7.5-10.5 fL Nucleated Red Blood Cells 0.0 0.0-0.19 % Chemistry Labs: Test 04/24/24 05:19 04/24/24 03:43 04/23/24 11:30 Range/Units Whole Blood Glucose 111 H 70-110 MG/DL Sodium Level 137 136-145 mmol/L Potassium Level 3.7 3.5-5.1 mmol/L Chloride Level 102 101-111 mmol/L Carbon Dioxide Level 31 21-32 mmol/L Blood Urea Nitrogen 12 7-18 mg/dL Creatinine 0.8 0.5-1.3 mg/dL Glomerular Filtration Rate Calc 108 >90 mL/min Random Glucose 120 H 70-105 mg/dL Total Calcium 7.7 L 8.5-10.1 mg/dL Lactic Acid Level 1.3 0.8-2.5 mmol/L Procalcitonin 0.11 0.05-0.5 ng/mL Diagnostics / Radiology: [Copy/Paste Echos/Imaging Report here] Impression and Plan: [ Acute Inferior wall acute STEMI, status post TNKase, 04/13/2024, POA Underlying history of coronary artery disease, POA Family history of premature coronary artery disease, POA Type 2 diabetes mellitus, POA Hypertension, POA Hyperlipidemia, POA S/P CABG x2 MEDRANO to LAD and RSVG to PDA- on 04/[address] 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 -hold Lasix 20 mg twice a day and metoprolol 12.5 mg twice a day due to hypotension. Currently on midodrine 10 mg tid - PT, OT, cardiac rehabilitation. -given syncope, ordered 2d echo Thank you for this consult. Salud Crocker MD ] SALUD CROCKER MD Apr 24, 2024 08:37
--- NOTE | 2024-04-24 10:22 | PN ---
[facility] PROGRESS NOTE Date of Service: Apr 24, 2024 Time of Service: 10:22 SUBJECTIVE: 04/17 patient seen at bedside, no acute events overnight. Patient has been evaluated by Cardiology and a coronary CTA was performed, they are recommending cardio vascular surgery recommendations. He is likely to be taken do surgery tomorrow, we will follow up with CV surgery. Vitals and labs are relatively unremarkable. 04/18 patient seen at bedside, no acute events overnight. Pending CABG with CV surgery today, we will follow up postprocedure. Vitals and labs are relatively unremarkable. 04/19 patient seen at bedside, no acute events overnight. CABG rescheduled for Saturday. Vitals and labs are relatively unremarkable. 04/20 patient is seen and examined today during my rounding, he is now in the ICU, intubated, mechanical ventilation, status post CABG by Cardiothoracic surgeon today. Tolerated procedure well. at bedside, updated. 04/21 the patient has been seen and examined during my rounding, the patient is successfully extubated, on supplemental oxygen via nasal cannula saturating 98%, hemodynamically stable, BP 104/54, afebrile. He is tolerating clear liquid, denied chest pain, no shortness a breath, no nausea, no vomiting. Currently the patient on low-dose epinephrine, low-dose Levophed, on insulin drip. Chest tube in place. 04/23 the patient has been seen and examined during my rounding today, comfortably in bed, spiking low-grade fever, per my discussion with the patient and the was at the bedside, he is having mild cough, per the he is on mildly congested, he denied chest pain, no shortness a breath, nausea, no vomiting, no abdominal pain, no diarrhea, no dysuria. 04/24 the patient has been seen and examined earlier this morning during my rounding, downgraded from the ICU to the PCU, he remains hemodynamically stable, still with low-grade temperature, alert oriented x3, hemoglobin dropped to 6.8, he is getting 1 unit of PRBC during my visit. He denies chest pain, no shortness a breath, no cough, no nausea, no vomiting, no abdominal pain, no diarrhea, no constipation, no melena, no hematochezia, no hematemesis, no hematuria. REVIEW OF SYSTEMS 12 point review of systems negative unless noted in HPI PHYSICAL EXAM GENERAL APPEARANCE: Patient is intubated, on mechanical ventilation. NEUROLOGICAL: Cranial nerves II-XII grossly intact. Motor is 5/5 in bilateral upper and lower extremities proximal to distal. No sensory deficits. HEENT: Face is symmetric. Pupils are equal and reactive. Extraocular movements are intact. NECK: Supple. No JVD. No thyromegaly. No submental, submandibular, pre-/pos tauricular, occipital or supraclavicular lymphadenopathy. CHEST: Normal chest expansion. No Telemetry. LUNGS: Absence of any rales, rhonchi or any wheezing. CARDIOVASCULAR: Regular. S1 and S2 normal. No appreciable rubs, murmurs or gallops. ABDOMEN: Soft, nontender, and nondistended. There is no rebound, voluntary guarding, or rigidity. : Deferred. No [place]. EXTREMITIES: Non-edematous and not cyanotic. No clubbing. Good capillary refill. SKIN: No skin breakdown. Vital Signs (last 8hr) Date Time Temp Pulse Resp B/P (MAP) Pulse Ox O2 Delivery O2 Flow Rate FiO2 04/24/24 07:00 95 Nasal Cannula* 2 28 04/24/24 03:12 99.0 81 16 97/50 92 Room Air LABS: Laboratory: Test 04/24/24 05:19 04/24/24 04:16 04/24/24 03:43 04/23/24 19:49 Range/Units Whole Blood Glucose 111 H 70-110 MG/DL White Blood Count 4.1 L 4.8-10.8 K/uL Red Blood Count 2.18 L 4.50-6.20 MIL/uL Hemoglobin 6.8 *L 14.0-18.0 g/dL Hematocrit 20.9 #*L 42-54 % Mean Corpuscular Volume 95.9 79-99 fL Mean Corpuscular Hemoglobin 31.2 27.0-33.0 pg Mean Corpuscular Hemoglobin Concent 32.5 32.0-36.0 g/dL Red Cell Distribution Width 12.9 11.0-15.5 % Platelet Count 128 L 130-400 K/uL Mean Platelet Volume 9.6 7.5-10.5 fL Nucleated Red Blood Cells 0.0 0.0-0.19 % Sodium Level 137 136-145 mmol/L Potassium Level 3.7 3.5-5.1 mmol/L Chloride Level 102 101-111 mmol/L Carbon Dioxide Level 31 21-32 mmol/L Blood Urea Nitrogen 12 7-18 mg/dL Creatinine 0.8 0.5-1.3 mg/dL Glomerular Filtration Rate Calc 108 >90 mL/min Random Glucose 120 H 70-105 mg/dL Total Calcium 7.7 L 8.5-10.1 mg/dL Influenza Type A Antigen Negative For Type A NEGATIVE Influenza Type B Antigen Negative For Type B NEGATIVE SARS-CoV-2 Antigen (Rapid) PRESUMPTIVE NEGATIVE NEGATIVE Group A Streptococcus Rapid negative NEGATIVE Test 04/23/24 11:30 Range/Units Lactic Acid Level 1.3 0.8-2.5 mmol/L Procalcitonin 0.11 0.05-0.5 ng/mL Current Medications Medications (Trade) Dose Ordered Sig/Wes Route PRN Reason Start Time Stop Time Status Last Admin Dose Admin Acetaminophen (TYLenol 325MG TAB) 650 mg Q4H PRN PO Temp >38.3C(AFTER EXTUBATION) 04/20/24 10:00 05/20/24 09:59 Acetaminophen (TYLenol 325MG TAB) 650 mg Q6H PRN PO MILD PAIN (1-3) 04/17/24 22:00 05/17/24 21:59 04/24/24 06:40 650 MG Acetaminophen (TYLenol 650MG SUPPOSITORY) 650 mg Q4H PRN RC Temp >38.3C WHILE INTUBATED 04/20/24 10:00 05/20/24 09:59 Acetaminophen (acetaMINOPHEN) 1,000 mg Q6H6 IV 04/20/24 13:00 04/21/24 12:59 DC 04/21/24 11:38 1,000 MG Albumin Human 250 ml @ 0 mls/hr AD PRN IV IF HEMODYNAMICALLY UNSTABLE 04/20/24 10:00 04/21/24 08:04 DC 04/21/24 08:04 100 MLS/HR Aminocaproic Acid 09712 mg/Sodium Chloride 310 ml @ 25 mls/hr AD IV 04/20/24 10:00 04/20/24 10:42 DC Aminocaproic Acid 19634 mg/Sodium Chloride 480 ml @ 0 mls/hr AD PRN IV BLEEDING CONTROL 04/20/24 06:30 05/20/24 06:29 Aspirin (Aspirin 81mg Chew Tab) 81 mg DAILY PO 04/15/24 14:00 05/15/24 13:59 04/24/24 08:55 81 MG Atorvastatin Calcium (LIPItor 40MG) 40 mg HS PO 04/15/24 21:00 05/15/24 20:59 04/23/24 21:25 40 MG Benzocaine (Cepacol Sore Throat Lozenge) 1 each Q4H PRN MM SORE THROAT 04/22/24 17:00 05/22/24 16:59 04/22/24 17:09 1 EACH Calcium Gluconate 1 gm/Sodium Chloride 60 ml @ 200 mls/hr AD PRN IV HYPOCALCEMIA 04/20/24 10:00 05/20/24 09:59 04/21/24 04:13 200 MLS/HR Cefazolin Sodium (Ancef) 2 gm ONCALL PRN IVP SURGERY 04/19/24 14:30 04/20/24 10:55 DC Cefazolin Sodium (Ancef) 2 gm Q8H IVPB 04/20/24 15:00 04/21/24 07:01 DC 04/21/24 06:44 2 GM Clopidogrel Bisulfate (plaVIX 75MG) 75 mg DAILY PO 04/15/24 14:00 04/15/24 18:27 DC 04/15/24 14:15 75 MG Dexmedetomidine/ Sodium Chloride (PRECEdex 400MCG/ 100ML-NS) 400 mcg PROTOCOL IV 04/20/24 10:00 04/21/24 09:59 DC 04/20/24 12:53 400 MCG Dexmedetomidine/ Sodium Chloride (PRECEdex 400MCG/ 100ML-NS) 400 mcg PROTOCOL IV 04/20/24 13:00 04/20/24 14:32 DC Dextrose (D50w) 50 ml AD PRN IV HYPOGLYCEMIA PROTOCOL 04/20/24 10:00 05/20/24 09:59 Docusate Sodium (COLace 100MG CAP) 100 mg BID PO 04/20/24 21:00 05/20/24 20:59 04/24/24 08:54 100 MG Enoxaparin Sodium (Lovenox) 30 mg DAILY SQ 04/23/24 09:00 05/23/24 08:59 04/24/24 08:54 30 MG Epinephrine HCl 10 mg/Sodium Chloride 250 ml @ 12.438 mls/ hr AD PRN IV POST-OP CARDIOVASCULAR ORDERS 04/20/24 10:00 04/25/24 09:59 Epinephrine HCl 10 mg/Sodium Chloride 250 ml @ 0 mls/hr AD PRN IV TITRATE 04/20/24 06:30 04/20/24 10:55 DC Famotidine (Pepcid 20mg Vial) 20 mg BID IV 04/20/24 21:00 04/23/24 20:11 DC 04/23/24 09:55 20 MG Famotidine (Pepcid 20mg Tab) 20 mg BID PO 04/15/24 21:00 04/20/24 09:50 DC 04/19/24 20:39 20 MG Famotidine (Pepcid 20mg Tab) 20 mg BID PO 04/23/24 21:00 05/23/24 20:59 04/24/24 08:55 20 MG Furosemide (LASix 20MG TAB) 20 mg Q12H PO 04/22/24 09:00 04/23/24 15:53 DC 04/23/24 10:29 20 MG Furosemide (LASix 20MG VIAL) 20 mg Q12H IV 04/21/24 09:00 04/22/24 08:59 DC 04/21/24 20:17 20 MG Glucagon (Glucagon 1mg Kit) 1 mg AD PRN IM HYPOGLYCEMIA PROTOCOL 04/20/24 10:00 05/20/24 09:59 Heparin Sodium (Porcine) (HEParin 5,000 UNIT VIAL) *calculation based on ACTUAL B... AD PRN IV HEPARIN PROTOCOL 04/15/24 14:00 04/20/24 09:50 DC Heparin Sodium/ Dextrose 250 ml @ 0 mls/hr Q6H IV 04/15/24 14:00 04/20/24 09:50 DC 04/19/24 02:00 10.5 MLS/HR Hydralazine HCl (APRESOLine 20MG INJ) 10 mg Q6H PRN IV ADMINISTER FOR SBP > 160 04/15/24 14:00 04/20/24 09:50 DC Insulin Human Regular (humuLIN R 100 UNIT/ML 3ML) INSULIN SLIDING SCAL... ACHS SQ 04/15/24 16:30 04/20/24 09:50 DC Insulin Human Regular (humuLIN R 100 UNIT/ML 3ML) INSULIN SLIDING SCAL... ACHS SQ 04/22/24 16:30 05/22/24 16:29 Insulin Human Regular 100 unit/ Sodium Chloride 100 ml @ 0 mls/hr AD IV 04/20/24 10:00 04/22/24 09:59 DC 04/21/24 06:20 3 MLS/HR Lactulose (Constulose 20gm/ 30ml Udcup) 20 gm BID PRN PO CONSTIPATION 04/20/24 10:00 05/20/24 09:59 Magnesium Hydroxide (Milk Of Magnesium 30ml) 30 ml DAILY PRN PO CONSTIPATION 04/20/24 10:00 05/20/24 09:59 Magnesium Sulfate 50 ml @ 12.5 mls/hr AD PRN IV MAG LEVEL LESS THAN 2.0 04/20/24 10:00 05/20/24 09:59 04/21/24 01:33 12.5 MLS/HR Magnesium Sulfate 50 ml @ 0 mls/hr PROTOCOL IV 04/15/24 14:00 04/20/24 09:50 DC Metoprolol Tartrate (loprESSOR) 12.5 mg BID PO 04/16/24 21:00 04/20/24 09:50 DC 04/20/24 05:24 12.5 MG Metoprolol Tartrate (loprESSOR) 12.5 mg BID PO 04/22/24 09:00 04/23/24 10:26 DC Metoprolol Tartrate (loprESSOR) 25 mg ONCE STAT PO 04/15/24 12:43 04/15/24 12:46 DC 04/15/24 12:52 25 MG Midodrine (PROAMatine 5 MG TABLET) 10 mg TID PO 04/23/24 10:30 05/23/24 10:29 04/24/24 08:55 10 MG Morphine Sulfate (morPHINE 2MG SYG) 0.5 mg Q2H PRN IV MODERATE PAIN (4-6) 04/20/24 10:00 04/21/24 09:59 DC 04/20/24 12:52 0.5 MG Morphine Sulfate (morPHINE 2MG SYG) 1 mg Q2H PRN IV SEVERE PAIN (7-10) 04/20/24 10:00 04/21/24 09:59 DC Nitroglycerin (Nitrostat) 0.4 mg AD PRN SL CHEST PAIN 04/15/24 22:30 04/20/24 09:50 DC Nitroglycerin/ Dextrose 0 ml @ 0 mls/hr AD IV 04/20/24 10:00 04/23/24 09:59 DC Norepinephrine Bitartrate 250 ml @ 0 mls/hr AD PRN IV TITRATE 04/20/24 06:30 04/20/24 10:55 DC Norepinephrine Bitartrate 250 ml @ 0 mls/hr AD PRN IV POST-OP CARDIOVASCULAR ORDERS 04/20/24 11:00 05/20/24 10:59 04/21/24 11:39 11.3 MLS/HR Norepinephrine Bitartrate 8 mg/ Dextrose 250 ml @ 0 mls/hr AD PRN IV POST-OP CARDIOVASCULAR ORDERS 04/20/24 10:00 04/20/24 10:57 DC Ondansetron HCl (zoFRAN 4MG INJ) 4 mg Q6H PRN IV NAUSEA/VOMITING 04/20/24 10:00 05/20/24 09:59 04/22/24 04:46 4 MG Piperacillin Sod/ Tazobactam Sod (Zosyn 3.375gm+NS 50ml) 3.375 gm Q8H IVPB 04/23/24 10:30 05/03/24 10:29 04/24/24 03:07 3.375 GM Potassium Phosphate 250 ml @ 42 mls/hr AD PRN IV LOW PHOS LEVEL 04/20/24 10:00 05/20/24 09:59 Potassium Chloride 100 ml @ 100 mls/hr AD PRN IV POTASSIUM PROTOCOL 04/15/24 14:00 04/20/24 09:50 DC Potassium Chloride 100 ml @ 100 mls/hr AD PRN IV HYPOKALEMIA 04/20/24 10:00 05/20/24 09:59 04/20/24 22:34 100 MLS/HR Potassium Chloride (K-Dur/Klor-Con 20meq) 20 meq AD PRN PO POTASSIUM PROTOCOL 04/15/24 14:00 04/20/24 09:50 DC 04/15/24 14:14 20 MEQ Potassium Chloride (KCl 10% Elixir 20meq/15ml) 20 meq AD PRN PO POTASSIUM PROTOCOL 04/15/24 14:00 04/20/24 09:50 DC Propofol 100 ml @ 0 mls/hr AD PRN IV SEDATION 04/20/24 10:00 04/24/24 09:59 DC Sacubitril/ Valsartan (Entresto 24 Mg-26 Mg Tablet) 1 each BID PO 04/15/24 21:00 04/20/24 09:50 DC 04/19/24 20:39 1 EACH Sodium Bicarbonate (Sodium Bicarb 50meq 50ml Vial) 50 meq AD PRN IV OTHER[SEE DOSING INSTRUCTIONS] 04/20/24 10:00 04/23/24 09:59 DC 04/20/24 15:38 150 MEQ Sodium Chloride 500 ml @ 0 mls/hr AD IV 04/20/24 10:00 05/20/24 09:59 Sodium Chloride 1,000 ml @ 10 mls/hr ONCE IV 04/20/24 10:00 04/21/24 09:59 DC 04/20/24 22:46 10 MLS/HR Sodium Chloride (NS 50ml) 50 ml AD IV 04/23/24 10:30 04/23/24 10:13 DC Sodium Chloride (NS Flush 10ml) 10 ml Q8H PRN IVP IV LINE FLUSH 04/20/24 10:00 05/20/24 09:59 Tramadol HCl (UltRAM) 25 mg Q6H PRN PO MODERATE PAIN (4-6) 04/20/24 10:00 04/25/24 09:59 04/22/24 04:46 25 MG Tramadol HCl (UltRAM) 50 mg Q6H PRN PO SEVERE PAIN (7-10) 04/20/24 10:00 04/25/24 09:59 04/21/24 20:17 50 MG DIAGNOSTICS / RADIOLOGY: [ ] ASSESSMENT: Acute Inferior wall acute STEMI, status post TNKase, 04/13/2024, POA Underlying history of coronary artery disease, POA Family history of premature coronary artery disease, POA Type 2 diabetes mellitus, POA Hypertension, POA Hyperlipidemia, POA PLAN: Patient remains admitted to the intensive care unit Continue telemetry monitoring Status post CABG today, tolerated procedure well Continue to follow Cardiothoracic input and recommendation Cardiology input noted and appreciated Continue supplemental oxygen via nasal cannula Patient is spiking fever, follow results of septic workup Infectious disease consultation requested, follow input and recommendation Electrolytes replacement IV per protocol All labs will be repeated in the morning GI prophylaxis with Pepcid, DVT prophylaxis with heparin Disposition: Patient remains admitted to the PCU, transfuse 1 unit of PRBC, follow CBC post transfusion, we will check stool occult blood, continue antibio tics, continue to follow results of septic workup, ID consultation requested, follow input and recommendation, continue to follow CT surgery input and recommendations. A.m. labs. Plan of action discussed, all questions answered, agreed and understood the information provided. Total visit time spent greater than 30 minutes. CARLEY HALL MD Apr 24, 2024 10:22
[2024-04-24] MEDS: PoTASSium chloRIDE 20MEQ/100ML 100 ML IV ONE (10:49)
[2024-04-24] MEDS: PoTASSium chloRIDE 20MEQ ER 20 MEQ ERTAB PO ONE (11:20)
--- NOTE | 2024-04-24 11:50 | HMCIMG ---
CHEST 1VW HISTORY: Post CABG COMPARISON: 04/23/2024 FINDINGS: A frontal projection of the chest was obtained. Mild bilateral pulmonary infiltrates are seen may be related to mild pulmonary vascular congestion with possible superimposed pneumonitis. Poststernotomy changes are seen. The heart is enlarged. Degenerative changes of the thoracolumbar spine are present. No evidence of aortic calcification is seen. IMPRESSION: 1. Mild bilateral pulmonary infiltrates are seen may be related to mild pulmonary vascular congestion with possible superimposed pneumonitis.
[2024-04-24 13:02] LABS: % IRON SATURATION 20.5 % (30-44)
[2024-04-24] MEDS: LACTULOSE 20 GM/30 ML UDCUP PO PRN (13:09)
--- NOTE | 2024-04-24 13:46 | CONS ---
CONSULT NOTE: 49-year-old male with history of type 2 diabetes mellitus, hypertension, hyperlipidemia, underlying coronary artery disease who presented as a transfer from [facility]. Patient had initially presented to [facility] and vessel echo with complaints of severe chest pain 8/10 in intensity. In the [facility], patient was found to have STEMI involving the inferior lead. He was given aspirin and TNK in the emergency room. He was subsequently transferred to [facility] yesterday for further management of STEMI. Patient states that he subsequently underwent cardiac catheterization by Dr. Casanova. Patient denies undergoing angioplasty or stenting during cardiac cath and RCA could not be engaged during the procedure. Patient has been transferred to [facility] for coronary CT angiogram to further delineate the RCA anatomy. This patient have surgery with bypass. Patient hemoglobin level at admission was 14.3 g/deciliter. Hemoglobin level today 6.8 g/deciliter with the patient receiving 1 unit of packed red blood cell after type cross and match. Richmond catheter in place. There is no blood in the in the bag. Previously patient denies any obvious bleeding. All the chest tubes were removed. Patient with mild chest pain. REVIEW OF SYSTEMS CONSTITUTIONAL: Denies fevers, chills, or night sweats. No unintentional weight loss reported. NEUROLOGICAL: Denies headache, amaurosis fugax, motor weakness, sensory deficit, vertigo/spinning sensation, gait abnormalities, or tremors. ENT: No hearing loss, otalgia, otorrhea, rhinitis, rhinorrhea, hoarseness, or sore throat. CARDIOVASCULAR: Denies any exertional angina, dyspnea on exertion, orthopnea, paroxysmal nocturnal dyspnea, palpitations, life-threatening arrhythmias, claudication. PULMONARY: Denies any shortness of breath, cough, phlegm/sputum, hemoptysis, pleuritic chest pain. SLEEP: Denies morning headaches, daytime somnolence or napping. Denies difficulty falling asleep, staying asleep, waking from sleep. Denies knowledge of snoring. GASTROINTESTINAL: Denies any type of dysphagia to either liquids or solids. Denies nausea, vomiting, pyrosis, early satiety, abdominal pain, diarrhea, constipation, or changes in stool consistency or caliber. Denies coffee-ground emesis, hematemesis, hematochezia, or melanotic stools. GENITOURINARY: Denies frequency, urgency, nocturia, hematuria or incontinence (Storage/Irritative symptoms.) Low urinary stream, straining to void, urinary intermittency or hesitancy, splitting of the voiding stream, terminal dribbling. ENDOCRINOLOGIC: Denies polyuria, polydipsia, polyphagia or heat/cold intolerances. HEMATOLOGIC: Denies thrombophilia/previous clots, or coagulopathy/bleeding di sorders. ONCOLOGIC: Denies personal history of malignancy. DERMATOLOGIC: Denies rashes or pruritus. PSYCHIATRIC: Denies any suicidal or homicidal ideation. Denies hallucinations. 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 FAMILY HISTORY: Reports family history of premature coronary artery disease with father having IA at the age of 41 Allergies: Patient has allergic reaction to avocado, banana, clindamycin, latex, metformin, suxamethonium, Watermelon Coded Allergies: avocado (Unverified Allergy, Severe, edema of neck, 04/15/24) banana (Unverified Allergy, Severe, ANAPHYLAXIS, 04/15/24) clindamycin (Unverified Allergy, Severe, ANAPHYLAXIS, 04/15/24) latex (Unverified Allergy, Severe, ANAPHYLAXIS, 04/15/24) watermelon (Unverified Allergy, Severe, ANAPHYLAXIS, 04/15/24) metformin (Unverified Adverse Reaction, Unknown, loose stool, 04/15/24) Uncoded Allergies: suxamethonium (Adverse Reaction, Unknown, 10/25/23) PHYSICAL EXAM GENERAL APPEARANCE: The patient is awake, alert, and oriented, in no acute cardiopulmonary distress. NEUROLOGICAL: Cranial nerves II-XII grossly intact. Motor is 5/5 in bilateral upper and lower extremities proximal to distal. No sensory deficits. HEENT: Face is symmetric. Pupils are equal and reactive. Extraocular movements are intact. NECK: Supple. No JVD. No thyromegaly. No submental, submandibular, pre- /postauricular, occipital or supraclavicular lymphadenopathy. CHEST: Normal chest expansion. No Telemetry. LUNGS: Absence of any rales, rhonchi or any wheezing. CARDIOVASCULAR: Regular. S1 and S2 normal. No appreciable rubs, murmurs or gallops. ABDOMEN: Soft, nontender, and nondistended. There is no rebound, voluntary guarding, or rigidity. : Deferred. No Richmond. EXTREMITIES: Non-edematous and not cyanotic. No clubbing. Good capillary refill. SKIN: No skin breakdown. Assessment 1. Coronary artery disease status post surgery 2. Diabetes mellitus 3. Severe anemia status post blood transfusion 4. Thrombocytopenia 5. Hyperlipidemia 6. Hypertension Plan 1. Peripheral blood smear showed red blood cells to be normocytic normochromic. There was no fragment cell or schistocyte. There is no teardrop cell. There is no rouleaux phenomena. There is no pelger-Huet cell. White blood cell with no blasts. Platelet was normal in morphology and count. 2. There was hypersegmented neutrophils. This patient to be started on folic acid 1 mg p.o. daily and vitamin B12 1000 mcg p.o. daily. 3. Will ask for iron study to be done. If the iron study is low this patient to be started on IV iron. 4. There is increased number of spherocytes. Will ask for direct Brennan to be done. If it is positive this patient will be started on high-dose dexamethasone 5. CBC daily. 6. Continue care as per primary LAB RESULTS 04/24/24 11:48: Whole Blood Glucose 142H 04/24/24 08:00: Iron Level 28L, Total Iron Binding Capacity 136L, Percent Iron Saturation 20.5L 04/24/24 04:16: White Blood Count 4.1L, Red Blood Count 2.18L, Hemoglobin 6.8*L, Hematocrit 20.9#*L, Mean Corpuscular Volume 95.9, Mean Corpuscular Hemoglobin 31.2, Mean Corpuscular Hemoglobin Concent 32.5, Red Cell Distribution Width 12.9, Platelet Count 128L, Mean Platelet Volume 9.6, Nucleated Red Blood Cells 0.0 04/24/24 03:43: Sodium Level 137, Potassium Level 3.7, Chloride Level 102, Carbon Dioxide Level 31, Blood Urea Nitrogen 12, Creatinine 0.8, Glomerular Filtration Rate Calc 108, Random Glucose 120H, Total Calcium 7.7L 04/23/24 19:49: Influenza Type A Antigen Negative For Type A, Influenza Type B Antigen Negative For Type B, SARS-CoV-2 Antigen (Rapid) PRESUMPTIVE NEGATIVE, Group A Streptococcus Rapid negative 04/23/24 11:30: Lactic Acid Level 1.3, Procalcitonin 0.11 Laboratory Tests Test 04/23/24 17:07 04/23/24 19:49 04/23/24 21:32 04/24/24 03:43 Whole Blood Glucose 114 MG/DL (70-110) H 149 MG/DL (70-110) H Influenza Type A Antigen Negative For Type A Influenza Type B Antigen Negative For Type B SARS-CoV-2 Antigen (Rapid) PRESUMPTIVE NEGATIVE Group A Streptococcus Rapid negative (NEGATIVE) Sodium Level 137 mmol/L (136-145) Potassium Level 3.7 mmol/L (3.5-5.1) Chloride Level 102 mmol/L (101-111) Carbon Dioxide Level 31 mmol/L (21-32) Blood Urea Nitrogen 12 mg/dL (7-18) Creatinine 0.8 mg/dL (0.5-1.3) Glomerular Filtration Rate Calc 108 mL/min (>90) Random Glucose 120 mg/dL (70-105) H Total Calcium 7.7 mg/dL (8.5-10.1) L Test 04/24/24 04:16 04/24/24 05:19 04/24/24 08:00 04/24/24 11:48 White Blood Count 4.1 K/uL (4.8-10.8) L Red Blood Count 2.18 MIL/uL (4.50-6.20) L Hemoglobin 6.8 g/dL (14.0-18.0) *L Hematocrit 20.9 % (42-54) #*L Mean Corpuscular Volume 95.9 fL (79-99) Mean Corpuscular Hemoglobin 31.2 pg (27.0-33.0) Mean Corpuscular Hemoglobin Concent 32.5 g/dL (32.0-36.0) Red Cell Distribution Width 12.9 % (11.0-15.5) Platelet Count 128 K/uL (130-400) L Mean Platelet Volume 9.6 fL (7.5-10.5) Nucleated Red Blood Cells 0.0 % (0.0-0.19) Whole Blood Glucose 111 MG/DL (70-110) H 142 MG/DL (70-110) H Iron Level 28 mcg/dL (65-175) L Total Iron Binding Capacity 136 mcg/dL (250-450) L Percent Iron Saturation 20.5 % (30-44) L MADDY BROWER MD Apr 24, 2024 13:46
--- NOTE | 2024-04-24 15:26 | PN ---
[facility] PROGRESS NOTE Date Patient Seen: Apr 24, 2024 Time of Visit: 1135 Supervising Physician: Dr. Mane Primary Care Physician: Dr. Valentin Persaud Outpatient Specialists: NA Inpatient Consults: Dr. Trivedi, Dr. Lincoln PROBLEM LIST: Acute Inferior wall STEMI, status post TNKase, 04/13/2024, POA S/P LHC on 04/15/24 Multivessel CAD S/P CABG x2 MEDRANO to LAD and RSVG to PDA- on 04/[address] Enciso Acute on chronic urinary retention- history of ureteral stricture S/P IR suprapubic catheter placement 04/20 Underlying history of coronary artery disease, POA Family history of premature coronary artery disease, POA Type 2 diabetes mellitus, POA Hypertension, POA Hyperlipidemia, POA History of hypertension, diabetes mellitus, hyperlipidemia, urethroplasty due to ureteral stricture, [place] with per cardiac stent INTERVAL HISTORY: 04/21/24-day 1. status post CABG x2. As per RN overnight patient had to get emergently a suprapubic fc per cystoscopy by Dr. Duggan due to history of urinary stricture and urinary retention. weaning off Levophed currently at 7 micr ograms/minute and epinephrine at 0.01 micrograms/kilogram per minute. Patient is calm cooperative awake alert and oriented x3 sitting up on hospital bed. No major complaints other than incisional tenderness with movement and cough. Patient and sinus tachycardia 113 beats per minute, respiratory rate of 20 blood pressure improving 125/61 with a map of 82 we will continue to wean down pressors per CV protocol O2 sat 99% with 2 L via nasal cannula on chest x-ray with increased pulmonary vascular congestion patient was given a dose of Lasix this morning per Cardiology and continues with scheduled doses of Lasix tomorrow morning. On WBCs 12.2 as expected postop H&H of 10.7/32.7 platelet count is normal. Kidneys are doing well with the creatinine of 0.9 GFR of 105 sodium 150 potassium 4.3 chloride 114. Patient is starting clear liquid diet today. 04/22-patient is awake alert and oriented x3 sitting up in recliner chair. No major overnight events. Patient has no complaints other than slight dizziness when transferred to chair. No further dizziness at this time. Weaned down Levophed today at 4 micrograms/minute. Patient has been afebrile with a T-max of 99.1 in the last 24 hours. Blood pressure 117/78, heart rate sinus tachy on the monitor with a heart rate of 107 beats per minute, respiratory rate even and unlabored 18 saturating 98% with 2 L via nasal cannula. Urine output 2.5 L in the last 24 hours chest tube left with 30 mL of output mediastinal chest tube with 50 mL of output since yesterday. Patient has a drop in H&H from 10.7/32.7 to 8.4/ 26.9. H&H was repeated and resulted with 9.1/27.8 platelet count is decreased from yesterday which was [id number] today [id number]. Chest x-ray with decreased pulmonary vascular congestion. 04/23/24- patient is awake alert and oriented x3. He does report a cough that is nonproductive. patient had T-max this morning of 100.4, urine output 1.6 L with a negative balance of 185 mL. Patient with temperature of 100.4 this morning heart rate in the 90s respiratory rate of 20 unlabored blood pressure 106/50 with Levophed at 2 micrograms/minute restarted this morning, saturating 93% with 1 L via. WBCs are normal H&H 8.4/26.5 platelet count is [id number]. Improving saline from yesterday. Chemistry unremarkable kidneys are doing well creatinine is 0.9 and GFR of 105 Chest x-ray with slight increase increased pulmonary vascular congestion and right lower base atelectasis. 04/24 patient was seen examined bedside with present patient is awake alert able answer simple questions appropriately at time of visit patient denies chest pain or shortness of breadth. Patient denies nausea vomiting or abdominal pain. Patient currently2 L nasal appears to be tolerating well however patient does not use oxygen we will titrate FiO2 as tolerated patient's hemoglobin this 6.8 is receiving1 unit PRBCs we will repeat patient's labs morning and continue to hemoglobin transfuse one PRBCs for hemoglobin less than seven. We will start patient on Venofer daily x3 days. Continue to monitor closely REVIEW OF SYSTEMS: 12 point ROS reviewed with patient. Pertinent positives mentioned above. Otherwi se negative. PHYSICAL EXAM: GENERAL: Awake alert and oriented x3 HEENT: EOMI, Sclera non icteric, moist mucosa NECK: Supple, no JVD, trachea midline LUNGS: Clear breath sounds bilaterally. No wheezes chest tube HEART: Regular rate and rhythm. Normal S1 and S2, without murmurs ABD: Abdomen soft, nontender. Bowel sounds present EXT: No clubbing cyanosis or edema NEURO: Moving all extremities, no unilateral weakness Vital Signs (last 8hr) Date Time Temp Pulse Resp B/P (MAP) Pulse Ox O2 Delivery O2 Flow Rate FiO2 04/24/24 12:24 98.1 66 20 111/58 100 Room Air 04/24/24 10:05 98.2 70 18 109/58 97 Room Air 04/24/24 09:35 98.6 74 18 111/61 96 Room Air 04/24/24 09:30 98.2 91 18 102/57 95 Room Air LABS: Hematology Labs: Test 04/24/24 04:16 Range/Units White Blood Count 4.1 L 4.8-10.8 K/uL Red Blood Count 2.18 L 4.50-6.20 MIL/uL Hemoglobin 6.8 *L 14.0-18.0 g/dL Hematocrit 20.9 #*L 42-54 % Mean Corpuscular Volume 95.9 79-99 fL Mean Corpuscular Hemoglobin 31.2 27.0-33.0 pg Mean Corpuscular Hemoglobin Concent 32.5 32.0-36.0 g/dL Red Cell Distribution Width 12.9 11.0-15.5 % Platelet Count 128 L 130-400 K/uL Mean Platelet Volume 9.6 7.5-10.5 fL Nucleated Red Blood Cells 0.0 0.0-0.19 % Chemistry Labs: Test 04/24/24 11:48 04/24/24 08:00 04/24/24 03:43 04/23/24 11:30 Range/Units Whole Blood Glucose 142 H 70-110 MG/DL Iron Level 28 L 65-175 mcg/dL Total Iron Binding Capacity 136 L 250-450 mcg/dL Percent Iron Saturation 20.5 L 30-44 % Sodium Level 137 136-145 mmol/L Potassium Level 3.7 3.5-5.1 mmol/L Chloride Level 102 101-111 mmol/L Carbon Dioxide Level 31 21-32 mmol/L Blood Urea Nitrogen 12 7-18 mg/dL Creatinine 0.8 0.5-1.3 mg/dL Glomerular Filtration Rate Calc 108 >90 mL/min Random Glucose 120 H 70-105 mg/dL Total Calcium 7.7 L 8.5-10.1 mg/dL Lactic Acid Level 1.3 0.8-2.5 mmol/L Procalcitonin 0.11 0.05-0.5 ng/mL DIAGNOSTICS / RADIOLOGY RESULTS: na PLAN Continue to monitor hemoglobin and transfuse1 unit PRBCs for hemoglobin less than seven Start Venofer IV daily x3 days Continue actively titrate FiO2 as tolerated Rest of the care per primary team NEURO: Minimize central acting medications as possible. Maintain fall precautions, adequate lighting during the day PULMONARY: Supplemental 02 as needed. Maintain aspiration precautions at all times CARDIOVASCULAR: Follow hemodynamics. Vital signs per facility protocol GI & NUTRITION: Continue with nutritional support. Continue stool softeners and laxatives as needed. KIDNEYS & ELECTROLYTES: Strict monitoring of intake, output and overall fluid balance. Avoid nephrotoxic medications to the extent possible. Medications to be dosed according to renal function. Monitor electrolytes and replace as needed ENDOCRINE: Maintain blood glucose between 100-180 at all times. Hypoglycemia protocol in place INFECTIOUS DISEASE: Trend temperature, WBC and procalcitonin level Follow cultures, deescalate antibiotics as soon as possible. Panculture if new onset fever ONCOLOGY/HEMATOLOGY/COAGULATION: Monitor for s/s of bleeding Monitor hemoglobin, coagulation studies as needed SKIN: Pressure ulcer prevention per facility protocol Specialty mattress ORTHO/REHAB: Continue PT/OT Prophylaxis: Continue GI and DVT prophylaxis Code Status: Full Resuscitation Disposition: Per primary team Other: Case discussed with supervising physician plan of care agreed upon GER CRYSTAL Apr 24, 2024 15:26
[2024-04-24] MEDS ORDERED: COMPOUND IV REFRIGERATED 1 EACH IVSOLN MISC PRN (15:30)
[2024-04-24] MEDS: chlorproMAZINE HCL 25 MG TAB PO ONE (16:33)
[2024-04-24 16:50] LABS: BASOPHILS # (AUTO) 0.01 K/uL (0.00-0.20); BASOPHILS % (AUTO) 0.2 % (0.0-5.0); EOSINOPHILS # (AUTO) 0.08 K/uL (0.00-0.70); EOSINOPHILS % (AUTO) 1.8 % (0.0-8.0); IMMATURE GRANULOCYTE ABSOLUTE 0.03 K/uL (0-1); LYMPHOCYTES # (AUTO) 1.1 K/uL (1.0-4.8); LYMPHOCYTES % (AUTO) 25.2 % (21.0-51.0); MEAN CORPUSCULAR HEMOGLOBIN 30.9 pg (27.0-33.0); MEAN CORPUSCULAR HGB CONC 32.4 g/dL (32.0-36.0); MEAN CORPUSCULAR VOLUME 95.4 fL (79-99); MONOCYTES # (AUTO) 0.5 K/uL (0.1-1.0); MONOCYTES % (AUTO) 10.4 % (3.0-13.0); NEUTROPHILS # (AUTO) 2.7 K/uL (1.8-7.7); NEUTROPHILS % (AUTO) 61.7 % (40.0-77.0); PLATELET COUNT (AUTO) 134 K/uL (130-400); RED BLOOD CELL COUNT(AUTO) 2.62 MIL/uL (4.50-6.20); RED CELL DISTRIBUTION WIDTH 13.7 % (11.0-15.5); WHITE BLOOD COUNT (AUTO) 4.3 K/uL (4.8-10.8)
--- NOTE | 2024-04-24 20:00 | NUR ---
PT AWAKE AND ALERT, DENIES DISCOMFORT, NO SOB OR LABORED RESPIRATIONS. SURGICAL INCISIONS INTACT, NO DRAINAGE, NO REDNESS. IS ENCOURAGED WHILE AWAKE, EDUCATED ON IMPORTANCE OF USING IS ORDERED. TELEMETRY MONITORING, CALL LIGHT WITHIN REACH, BED ALARM ON.
--- NOTE | 2024-04-24 21:15 | CONS ---
DATE OF SERVICE: 04/24/2024. INFECTIOUS DISEASE CONSULTATION NOTE REQUESTING PHYSICIAN: Dr. Pryor. REASON FOR CONSULTATION: Pneumonia and antibiotic management. HISTORY OF PRESENT ILLNESS: This is a 49-year-old female with history of obesity, hypertension and diabetes mellitus, who originally admitted with chest pain. The patient found with inferior wall STEMI. The patient had cardiac catheterization done and eventually underwent CABG. Postoperatively, the patient was found to have urinary retention. The patient has a cystoscopy done. At present, the patient is on Richmond catheter. The patient has some low-grade fever and some infiltrates. Started on Zosyn. No chest pain. No rashes or itchiness. No nausea or vomiting. PAST MEDICAL HISTORY: * Ureteral stricture. * CAD. * Diabetes mellitus. * Dyslipidemia. * Hypertension. * Myocardial infarction. PAST SURGICAL HISTORY: * Arthroplasty. * Left knee arthroscopy * Cardiac catheterization. * CABG. ALLERGIES: * CODEINE. * SULFA. * METFORMIN. CURRENT MEDICATIONS: Include: * Zosyn. * Lovenox. * Aspirin. * Lipitor. * Insulin. SOCIAL HISTORY: Lives with . No alcohol, tobacco, or illicit drug use. FAMILY HISTORY: Noncontributory except for diabetes mellitus. REVIEW OF SYSTEMS: Greater than 10 systems were reviewed, negative except as documented above. PHYSICAL EXAMINATION: GENERAL: Young male. VITAL SIGNS: Temperature 98.1, pulse 66, respiratory rate 20, and BP 111/58. EYES: No icterus. Pupils equal and reactive. HENT: No oral thrush seen. Moist oral mucosa. NECK: Supple, no JVD or thyromegaly. LUNGS: Few crackles, no rhonchi. CARDIOVASCULAR: S1, S2 regular. No murmur heard. ABDOMEN: Full, soft. Bowel sounds present. CENTRAL NERVOUS SYSTEM: Awake, alert, and oriented x 3. No focal deficits. SKIN: No rashes, no itchiness. LYMPHATIC: No peripheral lymphadenopathy. BACK: No deformity, no pressure ulcer. LABORATORY DATA: Sodium 137, potassium 3.7, BUN ____, and creatinine 0.8. WBC 4.6, hemoglobin 6.8, and platelet 120. Blood culture, no growth for one day. RADIOLOGY: Chest x-ray showed mild bilateral pulmonary infiltrates. ASSESSMENT: A 49-year-old male presenting with chest pain. CURRENT PROBLEMS: Include: * Anemia. * Inferior wall myocardial infarction. * Multivessel coronary artery disease, status post coronary artery bypass graft. * Diabetes mellitus. * Hypertension. * Urinary retention, status post cystoscopy. PLAN: * Continue Zosyn. * Continue antidiabetic. * Continue antihypertensive. * Continue antiplatelet. * Monitor electrolytes. * Continue nutritional support. * The patient will be followed closely. Thank you for allowing me to participate in the care of this patient. TID: [id number] RECEIPT: [id number]
[2024-04-25] VITALS (9 sets, daily range): BP systolic 103–135; BP diastolic 50–73; PULSE 70–87; RESP 18–20; TEMP 98.4–98.8; O2SAT 94–95
[2024-04-25 03:52] LABS: HEMATOCRIT 24.1 % (42-54); MEAN CORPUSCULAR HEMOGLOBIN 30.9 pg (27.0-33.0); MEAN CORPUSCULAR HGB CONC 33.2 g/dL (32.0-36.0); MEAN CORPUSCULAR VOLUME 93.1 fL (79-99); RED BLOOD CELL COUNT(AUTO) 2.59 MIL/uL (4.50-6.20); RED CELL DISTRIBUTION WIDTH 13.8 % (11.0-15.5); WHITE BLOOD COUNT (AUTO) 3.6 K/uL (4.8-10.8)
[2024-04-25 04:12] LABS: ALBUMIN 2.2 g/dL (3.5-5.0); BILIRUBIN,TOTAL 0.6 mg/dL (0.2-1.0); CREATININE 0.8 mg/dL (0.5-1.3); MAGNESIUM 2.1 mg/dL (1.80-2.40); POTASSIUM 3.9 mmol/L (3.5-5.1); TOTAL PROTEIN, SERUM 5.2 g/dL (6.0-8.3)
--- NOTE | 2024-04-25 06:53 | PN ---
[facility] PROGRESS NOTE Date of Service: Apr 25, 2024 Time of Service: 06:52 SUBJECTIVE: 04/17 patient seen at bedside, no acute events overnight. Patient has been evaluated by Cardiology and a coronary CTA was performed, they are recommending cardio vascular surgery recommendations. He is likely to be taken do surgery tomorrow, we will follow up with CV surgery. Vitals and labs are relatively unremarkable. 04/18 patient seen at bedside, no acute events overnight. Pending CABG with CV surgery today, we will follow up postprocedure. Vitals and labs are relatively unremarkable. 04/19 patient seen at bedside, no acute events overnight. CABG rescheduled for Saturday. Vitals and labs are relatively unremarkable. 04/20 patient is seen and examined today during my rounding, he is now in the ICU, intubated, mechanical ventilation, status post CABG by Cardiothoracic surgeon today. Tolerated procedure well. at bedside, updated. 04/21 the patient has been seen and examined during my rounding, the patient is successfully extubated, on supplemental oxygen via nasal cannula saturating 98%, hemodynamically stable, BP 104/54, afebrile. He is tolerating clear liquid, denied chest pain, no shortness a breath, no nausea, no vomiting. Currently the patient on low-dose epinephrine, low-dose Levophed, on insulin drip. Chest tube in place. 04/23 the patient has been seen and examined during my rounding today, comfortably in bed, spiking low-grade fever, per my discussion with the patient and the was at the bedside, he is having mild cough, per the he is on mildly congested, he denied chest pain, no shortness a breath, nausea, no vomiting, no abdominal pain, no diarrhea, no dysuria. 04/24 the patient has been seen and examined earlier this morning during my rounding, downgraded from the ICU to the PCU, he remains hemodynamically stable, still with low-grade temperature, alert oriented x3, hemoglobin dropped to 6.8, he is getting 1 unit of PRBC during my visit. He denies chest pain, no shortness a breath, no cough, no nausea, no vomiting, no abdominal pain, no diarrhea, no constipation, no melena, no hematochezia, no hematemesis, no hematuria. 04/25 the patient has been seen and examined earlier this morning during my rounding, comfortable sitting in the stretcher, tolerating diet, on supplemental oxygen via nasal at 2 L, saturating 98%, he remains alert oriented x3, hemodynamically stable, he denies dizziness, no headache, no blurry vision, no chest pain, no shortness a breath, no cough, no nausea, no vomiting, no abd ominal discomfort. Temperature last night 100.0. at bedside during my visit. REVIEW OF SYSTEMS 12 point review of systems negative unless noted in HPI PHYSICAL EXAM GENERAL APPEARANCE: Patient is intubated, on mechanical ventilation. NEUROLOGICAL: Cranial nerves II-XII grossly intact. Motor is 5/5 in bilateral upper and lower extremities proximal to distal. No sensory deficits. HEENT: Face is symmetric. Pupils are equal and reactive. Extraocular movements are intact. NECK: Supple. No JVD. No thyromegaly. No submental, submandibular, pre- /postauricular, occipital or supraclavicular lymphadenopathy. CHEST: Normal chest expansion. No Telemetry. LUNGS: Absence of any rales, rhonchi or any wheezing. CARDIOVASCULAR: Regular. S1 and S2 normal. No appreciable rubs, murmurs or gallops. ABDOMEN: Soft, nontender, and nondistended. There is no rebound, voluntary guarding, or rigidity. : Deferred. No [place]. EXTREMITIES: Non-edematous and not cyanotic. No clubbing. Good capillary refill. SKIN: No skin breakdown. Vital Signs (last 8hr) Date Time Temp Pulse Resp B/P (MAP) Pulse Ox O2 Delivery O2 Flow Rate FiO2 04/25/24 04:16 98.4 77 18 103/57 93 Nasal Cannula 04/25/24 00:27 98.4 70 18 112/50 94 Room Air LABS: Laboratory: Test 04/25/24 05:09 04/25/24 03:40 04/24/24 16:38 04/24/24 08:00 Range/Units Whole Blood Glucose 110 70-110 MG/DL White Blood Count 3.6 L 4.8-10.8 K/uL Red Blood Count 2.59 L 4.50-6.20 MIL/uL Hemoglobin 8.0 L 14.0-18.0 g/dL Hematocrit 24.1 L 42-54 % Mean Corpuscular Volume 93.1 79-99 fL Mean Corpuscular Hemoglobin 30.9 27.0-33.0 pg Mean Corpuscular Hemoglobin Concent 33.2 32.0-36.0 g/dL Red Cell Distribution Width 13.8 11.0-15.5 % Platelet Count 152 130-400 K/uL Mean Platelet Volume 9.5 7.5-10.5 fL Nucleated Red Blood Cells 0.0 0.0-0.19 % Sodium Level 142 136-145 mmol/L Potassium Level 3.9 3.5-5.1 mmol/L Chloride Level 108 101-111 mmol/L Carbon Dioxide Level 32 21-32 mmol/L Blood Urea Nitrogen 11 7-18 mg/dL Creatinine 0.8 0.5-1.3 mg/dL Glomerular Filtration Rate Calc 108 >90 mL/min Random Glucose 100 70-105 mg/dL Total Calcium 8.1 L 8.5-10.1 mg/dL Magnesium Level 2.10 1.80-2.40 mg/dL Total Bilirubin 0.6 0.2-1.0 mg/dL Aspartate Amino Transf (AST/SGOT) 19 10-37 U/L Alanine Aminotransferase (ALT/SGPT) 50 12-78 U/L Alkaline Phosphatase 82 50-136 U/L Total Protein 5.2 L 6.0-8.3 g/dL Albumin 2.2 L 3.5-5.0 g/dL Immature Granulocyte % (Auto) 0.7 0-1 % Neutrophils (%) (Auto) 61.7 40.0-77.0 % Lymphocytes (%) (Auto) 25.2 21.0-51.0 % Monocytes (%) (Auto) 10.4 3.0-13.0 % Eosinophils (%) (Auto) 1.8 0.0-8.0 % Basophils (%) (Auto) 0.2 0.0-5.0 % Neutrophils # (Auto) 2.7 1.8-7.7 K/uL Lymphocytes # (Auto) 1.1 1.0-4.8 K/uL Monocytes # (Auto) 0.5 0.1-1.0 K/uL Eosinophils # (Auto) 0.08 0.00-0.70 K/uL Basophils # (Auto) 0.01 0.00-0.20 K/uL Absolute Immature Granulocyte (auto 0.03 0-1 K/uL Iron Level 28 L 65-175 mcg/dL Total Iron Binding Capacity 136 L 250-450 mcg/dL Percent Iron Saturation 20.5 L 30-44 % Test 04/23/24 19:49 04/23/24 11:30 Range/Units Influenza Type A Antigen Negative For Type A NEGATIVE Influenza Type B Antigen Negative For Type B NEGATIVE SARS-CoV-2 Antigen (Rapid) PRESUMPTIVE NEGATIVE NEGATIVE Group A Streptococcus Rapid negative NEGATIVE Lactic Acid Level 1.3 0.8-2.5 mmol/L Procalcitonin 0.11 0.05-0.5 ng/mL Current Medications Medications (Trade) Dose Ordered Sig/Wes Route PRN Reason Start Time Stop Time Status Last Admin Dose Admin Acetaminophen (TYLenol 325MG TAB) 650 mg Q4H PRN PO Temp >38.3C(AFTER EXTUBATION) 04/20/24 10:00 05/20/24 09:59 Acetaminophen (TYLenol 325MG TAB) 650 mg Q6H PRN PO MILD PAIN (1-3) 04/17/24 22:00 05/17/24 21:59 04/24/24 06:40 650 MG Acetaminophen (TYLenol 650MG SUPPOSITORY) 650 mg Q4H PRN RC Temp >38.3C WHILE INTUBATED 04/20/24 10:00 05/20/24 09:59 Acetaminophen (acetaMINOPHEN) 1,000 mg Q6H6 IV 04/20/24 13:00 04/21/24 12:59 DC 04/21/24 11:38 1,000 MG Albumin Human 250 ml @ 0 mls/hr AD PRN IV IF HEMODYNAMICALLY UNSTABLE 04/20/24 10:00 04/21/24 08:04 DC 04/21/24 08:04 100 MLS/HR Aminocaproic Acid 88508 mg/Sodium Chloride 310 ml @ 25 mls/hr AD IV 04/20/24 10:00 04/20/24 10:42 DC Aminocaproic Acid 09751 mg/Sodium Chloride 480 ml @ 0 mls/hr AD PRN IV BLEEDING CONTROL 04/20/24 06:30 05/20/24 06:29 Aspirin (Aspirin 81mg Chew Tab) 81 mg DAILY PO 04/15/24 14:00 05/15/24 13:59 04/24/24 08:55 81 MG Atorvastatin Calcium (LIPItor 40MG) 40 mg HS PO 04/15/24 21:00 05/15/24 20:59 04/24/24 21:37 40 MG Benzocaine (Cepacol Sore Throat Lozenge) 1 each Q4H PRN MM SORE THROAT 04/22/24 17:00 05/22/24 16:59 04/22/24 17:09 1 EACH Calcium Gluconate 1 gm/Sodium Chloride 60 ml @ 200 mls/hr AD PRN IV HYPOCALCEMIA 04/20/24 10:00 05/20/24 09:59 04/21/24 04:13 200 MLS/HR Cefazolin Sodium (Ancef) 2 gm ONCALL PRN IVP SURGERY 04/19/24 14:30 04/20/24 10:55 DC Cefazolin Sodium (Ancef) 2 gm Q8H IVPB 04/20/24 15:00 04/21/24 07:01 DC 04/21/24 06:44 2 GM Clopidogrel Bisulfate (plaVIX 75MG) 75 mg DAILY PO 04/15/24 14:00 04/15/24 18:27 DC 04/15/24 14:15 75 MG Dexmedetomidine/ Sodium Chloride (PRECEdex 400MCG/ 100ML-NS) 400 mcg PROTOCOL IV 04/20/24 10:00 04/21/24 09:59 DC 04/20/24 12:53 400 MCG Dexmedetomidine/ Sodium Chloride (PRECEdex 400MCG/ 100ML-NS) 400 mcg PROTOCOL IV 04/20/24 13:00 04/20/24 14:32 DC Dextrose (D50w) 50 ml AD PRN IV HYPOGLYCEMIA PROTOCOL 04/20/24 10:00 05/20/24 09:59 Docusate Sodium (COLace 100MG CAP) 100 mg BID PO 04/20/24 21:00 05/20/24 20:59 04/24/24 21:37 100 MG Enoxaparin Sodium (Lovenox) 30 mg DAILY SQ 04/23/24 09:00 05/23/24 08:59 04/24/24 08:54 30 MG Epinephrine HCl 10 mg/Sodium Chloride 250 ml @ 12.438 mls/ hr AD PRN IV POST-OP CARDIOVASCULAR ORDERS 04/20/24 10:00 04/25/24 09:59 Epinephrine HCl 10 mg/Sodium Chloride 250 ml @ 0 mls/hr AD PRN IV TITRATE 04/20/24 06:30 04/20/24 10:55 DC Famotidine (Pepcid 20mg Vial) 20 mg BID IV 04/20/24 21:00 04/23/24 20:11 DC 04/23/24 09:55 20 MG Famotidine (Pepcid 20mg Tab) 20 mg BID PO 04/15/24 21:00 04/20/24 09:50 DC 04/19/24 20:39 20 MG Famotidine (Pepcid 20mg Tab) 20 mg BID PO 04/23/24 21:00 05/23/24 20:59 04/24/24 21:37 20 MG Furosemide (LASix 20MG TAB) 20 mg Q12H PO 04/22/24 09:00 04/23/24 15:53 DC 04/23/24 10:29 20 MG Furosemide (LASix 20MG VIAL) 20 mg Q12H IV 04/21/24 09:00 04/22/24 08:59 DC 04/21/24 20:17 20 MG Glucagon (Glucagon 1mg Kit) 1 mg AD PRN IM HYPOGLYCEMIA PROTOCOL 04/20/24 10:00 05/20/24 09:59 Heparin Sodium (Porcine) (HEParin 5,000 UNIT VIAL) *calculation based on ACTUAL B... AD PRN IV HEPARIN PROTOCOL 04/15/24 14:00 04/20/24 09:50 DC Heparin Sodium/ Dextrose 250 ml @ 0 mls/hr Q6H IV 04/15/24 14:00 04/20/24 09:50 DC 04/19/24 02:00 10.5 MLS/HR Hydralazine HCl (APRESOLine 20MG INJ) 10 mg Q6H PRN IV ADMINISTER FOR SBP > 160 04/15/24 14:00 04/20/24 09:50 DC Insulin Human Regular (humuLIN R 100 UNIT/ML 3ML) INSULIN SLIDING SCAL... ACHS SQ 04/15/24 16:30 04/20/24 09:50 DC Insulin Human Regular (humuLIN R 100 UNIT/ML 3ML) INSULIN SLIDING SCAL... ACHS SQ 04/22/24 16:30 05/22/24 16:29 Insulin Human Regular 100 unit/ Sodium Chloride 100 ml @ 0 mls/hr AD IV 04/20/24 10:00 04/22/24 09:59 DC 04/21/24 06:20 3 MLS/HR Iron Sucrose 300 mg/Sodium Chloride 250 ml @ 83 mls/hr DAILY IV 04/25/24 09:00 04/28/24 09:00 Lactulose (Constulose 20gm/ 30ml Udcup) 20 gm BID PRN PO CONSTIPATION 04/20/24 10:00 05/20/24 09:59 04/25/24 03:33 20 GM Magnesium Hydroxide (Milk Of Magnesium 30ml) 30 ml DAILY PRN PO CONSTIPATION 04/20/24 10:00 05/20/24 09:59 Magnesium Sulfate 50 ml @ 12.5 mls/hr AD PRN IV MAG LEVEL LESS THAN 2.0 04/20/24 10:00 05/20/24 09:59 04/21/24 01:33 12.5 MLS/HR Magnesium Sulfate 50 ml @ 0 mls/hr PROTOCOL IV 04/15/24 14:00 04/20/24 09:50 DC Metoprolol Tartrate (loprESSOR) 12.5 mg BID PO 04/16/24 21:00 04/20/24 09:50 DC 04/20/24 05:24 12.5 MG Metoprolol Tartrate (loprESSOR) 12.5 mg BID PO 04/22/24 09:00 04/23/24 10:26 DC Metoprolol Tartrate (loprESSOR) 25 mg ONCE STAT PO 04/15/24 12:43 04/15/24 12:46 DC 04/15/24 12:52 25 MG Midodrine (PROAMatine 5 MG TABLET) 10 mg TID PO 04/23/24 10:30 05/23/24 10:29 04/24/24 21:37 10 MG Morphine Sulfate (morPHINE 2MG SYG) 0.5 mg Q2H PRN IV MODERATE PAIN (4-6) 04/20/24 10:00 04/21/24 09:59 DC 04/20/24 12:52 0.5 MG Morphine Sulfate (morPHINE 2MG SYG) 1 mg Q2H PRN IV SEVERE PAIN (7-10) 04/20/24 10:00 04/21/24 09:59 DC Nitroglycerin (Nitrostat) 0.4 mg AD PRN SL CHEST PAIN 04/15/24 22:30 04/20/24 09:50 DC Nitroglycerin/ Dextrose 0 ml @ 0 mls/hr AD IV 04/20/24 10:00 04/23/24 09:59 DC Norepinephrine Bitartrate 250 ml @ 0 mls/hr AD PRN IV TITRATE 04/20/24 06:30 04/20/24 10:55 DC Norepinephrine Bitartrate 250 ml @ 0 mls/hr AD PRN IV POST-OP CARDIOVASCULAR ORDERS 04/20/24 11:00 05/20/24 10:59 04/21/24 11:39 11.3 MLS/HR Norepinephrine Bitartrate 8 mg/ Dextrose 250 ml @ 0 mls/hr AD PRN IV POST-OP CARDIOVASCULAR ORDERS 04/20/24 10:00 04/20/24 10:57 DC Ondansetron HCl (zoFRAN 4MG INJ) 4 mg Q6H PRN IV NAUSEA/VOMITING 04/20/24 10:00 05/20/24 09:59 04/22/24 04:46 4 MG Piperacillin Sod/ Tazobactam Sod (Zosyn 3.375gm+NS 50ml) 3.375 gm Q8H IVPB 04/23/24 10:30 05/03/24 10:29 04/25/24 03:20 3.375 GM Potassium Phosphate 250 ml @ 42 mls/hr AD PRN IV LOW PHOS LEVEL 04/20/24 10:00 04/24/24 10:30 DC Potassium Chloride 100 ml @ 100 mls/hr AD PRN IV POTASSIUM PROTOCOL 04/15/24 14:00 04/20/24 09:50 DC Potassium Chloride 100 ml @ 100 mls/hr AD PRN IV HYPOKALEMIA 04/20/24 10:00 05/20/24 09:59 04/20/24 22:34 100 MLS/HR Potassium Chloride (K-Dur/Klor-Con 20meq) 20 meq AD PRN PO POTASSIUM PROTOCOL 04/15/24 14:00 04/20/24 09:50 DC 04/15/24 14:14 20 MEQ Potassium Chloride (KCl 10% Elixir 20meq/15ml) 20 meq AD PRN PO POTASSIUM PROTOCOL 04/15/24 14:00 04/20/24 09:50 DC Propofol 100 ml @ 0 mls/hr AD PRN IV SEDATION 04/20/24 10:00 04/24/24 09:59 DC Sacubitril/ Valsartan (Entresto 24 Mg-26 Mg Tablet) 1 each BID PO 04/15/24 21:00 04/20/24 09:50 DC 04/19/24 20:39 1 EACH Sodium Bicarbonate (Sodium Bicarb 50meq 50ml Vial) 50 meq AD PRN IV OTHER[SEE DOSING INSTRUCTIONS] 04/20/24 10:00 04/23/24 09:59 DC 04/20/24 15:38 150 MEQ Sodium Chloride 500 ml @ 0 mls/hr AD IV 04/20/24 10:00 05/20/24 09:59 Sodium Chloride 1,000 ml @ 10 mls/hr ONCE IV 04/20/24 10:00 04/21/24 09:59 DC 04/20/24 22:46 10 MLS/HR Sodium Chloride (NS 50ml) 50 ml AD IV 04/23/24 10:30 04/23/24 10:13 DC Sodium Chloride (NS Flush 10ml) 10 ml Q8H PRN IVP IV LINE FLUSH 04/20/24 10:00 05/20/24 09:59 Tramadol HCl (UltRAM) 25 mg Q6H PRN PO MODERATE PAIN (4-6) 04/20/24 10:00 04/25/24 09:59 04/22/24 04:46 25 MG Tramadol HCl (UltRAM) 50 mg Q6H PRN PO SEVERE PAIN (7-10) 04/20/24 10:00 04/25/24 09:59 04/21/24 20:17 50 MG DIAGNOSTICS / RADIOLOGY: [ ] ASSESSMENT: Acute Inferior wall acute STEMI, status post TNKase, 04/13/2024, POA Underlying history of coronary artery disease, POA Family history of premature coronary artery disease, POA Type 2 diabetes mellitus, POA Hypertension, POA Hyperlipidemia, POA PLAN: Patient remains admitted to the intensive care unit Continue telemetry monitoring Status post CABG today, tolerated procedure well Continue to follow Cardiothoracic input and recommendation Cardiology input noted and appreciated Continue supplemental oxygen via nasal cannula Patient is spiking fever, follow results of septic workup Infectious disease consultation requested, follow input and recommendation Electrolytes replacement IV per protocol All labs will be repeated in the morning GI prophylaxis with Pepcid, DVT prophylaxis with heparin Disposition: Patient remains admitted to the PCU, we will do serial CBC q.8 hours, transfuse 1 unit of PRBC if hemoglobin less than seven, we will check stool occult blood, continue antibiotics, septic workup so far negative, continue to follow infectious disease input recommendation, continue to follow CT surgery input and recommendations. A.m. labs. Plan of action discussed, all questions answered, agreed and understood the information provided. Total visit time spent greater than 30 minutes. CARLEY HALL MD Apr 25, 2024 06:53
[2024-04-25 07:25] LABS: HEMATOCRIT 29.7 % (42-54); MEAN CORPUSCULAR HGB CONC 32.3 g/dL (32.0-36.0); MEAN CORPUSCULAR VOLUME 95.8 fL (79-99); NUCLEATED RED BLOOD CELLS 0.3 % (0.0-0.19); RED BLOOD CELL COUNT(AUTO) 3.1 MIL/uL (4.50-6.20)
[2024-04-25] MEDS ORDERED: COMPOUND IV MISC 1 EACH IVSOLN MISC PRN (07:30)
[2024-04-25] MEDS: IRON sUCROse COMPLEX 300 MG in 0.9% NACL 250ML 250 ML IV SCH (08:53)
--- NOTE | 2024-04-25 09:41 | HMCIMG ---
FRONTAL CHEST RADIOGRAPH INDICATION: s/p CABG COMPARISON: 04/24/2024 FINDINGS/IMPRESSION: engine monitor leads overlie the field of view. Median sternotomy wires as well as fixation plates and screws are in appropriate alignment. Stable cardiac enlargement without pulmonary vascular congestion. Unchanged small bilateral pleural effusions with subjacent passive atelectasis, but no evidence for pneumothorax.
--- NOTE | 2024-04-25 09:58 | HMCSR ---
APPROVED REPORT EXAM: Limited Two-dimensional echocardiogram INDICATION ICD: Rule out pericardial effusion 2D Dimensions RVDd3.8 cmLVEF(%)52.9 (>50%)LVED Vol(simp.)108.5 mL IVSd0.6 (0.7-1.1cm)FS(%)27 %LVES Vol(simp.)48.0 mL LVDd4.8 (3.8-5.6cm)LA (2D)3.1 (1.6-4.0cm)LVEF(%, simp.)56 % PWd1.2 (0.7-1.1cm)Ao Root(2D)3.2 (2.0-3.7cm)LA ESV INDEX (4CH)27.00 mL/m2 IVSs1.2 cm LVDs3.5 (2.5-4.0cm) PWs1.1 cm Left Ventricle Left ventricular cavity size is normal. There is normal LV segmental wall motion. Global thinning of the left ventricular diehl. LVEF is 50-55%. Right Ventricle The right ventricle is normal size. Right ventricular systolic function is reduced. Atria The left atrium size is normal. The right atrium is borderline dilated. Aortic Valve Poorly imaged aortic valve. Mitral Valve The mitral valve is normal in structure and function. Pericardium No pericardial effusion. Other Information Quality : Fair Conclusion LVEF is 50-55%. poor quality study, LV function appears low normal or mildly reduced visually.
--- NOTE | 2024-04-25 10:09 | PN ---
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 He had an inferior wall STEMI treated with TNK in the emergency department 04/13/2024 and subsequently underwent left heart catheterization 04/14/2024. The right coronary artery could not be engaged. 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 He also had 40-50% proximal LAD stenosis, 50-60% mid LAD stenosis and 50% distal LAD stenosis. He also had known 50-60% stenosis of the PDA seen on left heart catheterization 10/29/2023. He underwent CABG x2 with a MEDRANO to the LAD and saphenous vein graft to the PDA with unroofing of the right coronary artery 04/20/2024. He later developed urinary retention and underwent balloon dilation of anterior urethral strictures 04/20/2024. He has a [place] catheter in place. He developed severe postop anemia status post transfusion and thrombocytopenia which has resolved. Echocardiogram 04/14/2024 demonstrates an ejection fraction of 55-60%. He is currently in sinus rhythm with heart rates in the 70s to 80s. Chest x-ray this morning shows small bilateral pleural effusions which are unchanged from the previous chest x-ray. He offers up no new cardiac complaints this morning. He denies chest pain, shortness or breath, dizziness or palpitations. Assessment: 1. Inferior wall STEMI treated with TNK 04/13/2024. 2. 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 3. Status post CABG x2 with MEDRANO to LAD and saphenous vein graft to PDA with unroofing of RCA. 4. Urinary retention status post dilation of urethral strictures. 5. Hypertension. 6. Hyperlipidemia. 7. Type 2 diabetes mellitus. Plan: 1. Continue aspirin 81 mg once daily and atorvastatin 40 mg once daily. 2. Lasix has been held due to a syncopal episode secondary to hypotension 3. Continue midodrine 10 mg3 times daily. 4. Continue management as per CT surgery and consultants. Vitals/Labs Vital Signs Date Time Temp Pulse Resp B/P (MAP) Pulse Ox O2 Delivery O2 Flow Rate FiO2 04/25/24 07:41 98.6 86 20 111/54 95 Nasal Cannula 2.0 04/25/24 07:00 28 Laboratory Tests 04/24/24 16:38 04/25/24 03:40 04/25/24 07:21 DORON MCGRAW Apr 25, 2024 10:09
--- NOTE | 2024-04-25 14:04 | PN ---
[facility] PROGRESS NOTE Date Patient Seen: Apr 25, 2024 Time of Visit: 1044 Supervising Physician: Dr. Mane Primary Care Physician: Dr. Valentin Persaud Outpatient Specialists: NA Inpatient Consults: Dr. Trivedi, Dr. Lincoln PROBLEM LIST: Acute Inferior wall STEMI, status post TNKase, 04/13/2024, POA S/P LHC on 04/15/24 Multivessel CAD S/P CABG x2 MEDRANO to LAD and RSVG to PDA- on 04/[address] Enciso Acute on chronic urinary retention- history of ureteral stricture S/P IR suprapubic catheter placement 04/20 Underlying history of coronary artery disease, POA Family history of premature coronary artery disease, POA Type 2 diabetes mellitus, POA Hypertension, POA Hyperlipidemia, POA History of hypertension, diabetes mellitus, hyperlipidemia, urethroplasty due to ureteral stricture, [place] with per cardiac stent INTERVAL HISTORY: 04/21/24-day 1. status post CABG x2. As per RN overnight patient had to get emergently a suprapubic fc per cystoscopy by Dr. Duggna due to history of urinary stricture and urinary retention. weaning off Levophed currently at 7 micr ograms/minute and epinephrine at 0.01 micrograms/kilogram per minute. Patient is calm cooperative awake alert and oriented x3 sitting up on hospital bed. No major complaints other than incisional tenderness with movement and cough. Patient and sinus tachycardia 113 beats per minute, respiratory rate of 20 blood pressure improving 125/61 with a map of 82 we will continue to wean down pressors per CV protocol O2 sat 99% with 2 L via nasal cannula on chest x-ray with increased pulmonary vascular congestion patient was given a dose of Lasix this morning per Cardiology and continues with scheduled doses of Lasix tomorrow morning. On WBCs 12.2 as expected postop H&H of 10.7/32.7 platelet count is normal. Kidneys are doing well with the creatinine of 0.9 GFR of 105 sodium 150 potassium 4.3 chloride 114. Patient is starting clear liquid diet today. 04/22-patient is awake alert and oriented x3 sitting up in recliner chair. No major overnight events. Patient has no complaints other than slight dizziness when transferred to chair. No further dizziness at this time. Weaned down Levophed today at 4 micrograms/minute. Patient has been afebrile with a T-max of 99.1 in the last 24 hours. Blood pressure 117/78, heart rate sinus tachy on the monitor with a heart rate of 107 beats per minute, respiratory rate even and unlabored 18 saturating 98% with 2 L via nasal cannula. Urine output 2.5 L in the last 24 hours chest tube left with 30 mL of output mediastinal chest tube with 50 mL of output since yesterday. Patient has a drop in H&H from 10.7/32.7 to 8.4/ 26.9. H&H was repeated and resulted with 9.1/27.8 platelet count is decreased from yesterday which was [id number] today [id number]. Chest x-ray with decreased pulmonary vascular congestion. 04/23/24- patient is awake alert and oriented x3. He does report a cough that is nonproductive. patient had T-max this morning of 100.4, urine output 1.6 L with a negative balance of 185 mL. Patient with temperature of 100.4 this morning heart rate in the 90s respiratory rate of 20 unlabored blood pressure 106/50 with Levophed at 2 micrograms/minute restarted this morning, saturating 93% with 1 L via. WBCs are normal H&H 8.4/26.5 platelet count is [id number]. Improving saline from yesterday. Chemistry unremarkable kidneys are doing well creatinine is 0.9 and GFR of 105 Chest x-ray with slight increase increased pulmonary vascular congestion and right lower base atelectasis. 04/24 patient was seen examined bedside with present patient is awake alert able answer simple questions appropriately at time of visit patient denies chest pain or shortness of breadth. Patient denies nausea vomiting or abdominal pain. Patient currently2 L nasal appears to be tolerating well however patient does not use oxygen we will titrate FiO2 as tolerated patient's hemoglobin this 6.8 is receiving1 unit PRBCs we will repeat patient's labs morning and continue to hemoglobin transfuse one PRBCs for hemoglobin less than seven. We will start patient on Venofer daily x3 days. Continue to monitor closely 04/25 patient was seen and examined by bedside with present. Patient is awake alert answers questions appropriately. Patient's hemoglobin has remained stable post1 unit PRBCs transfused yesterday. Hemoglobin today 9.6. Patient to continue with Venofer x3 days. At time of visit patient has no specific complaints. Denies chest pain or shortness of breadth. Denies nausea vomiting or abdominal pain. Is having bowel movements. Tolerating p.o. diet. Remains hemodynamically stable. As per primary nurse no acute events to be reported REVIEW OF SYSTEMS: 12 point ROS reviewed with patient. Pertinent positives mentioned above. Otherwise negative. PHYSICAL EXAM: GENERAL: Awake alert and oriented x3 HEENT: EOMI, Sclera non icteric, moist mucosa NECK: Supple, no JVD, trachea midline LUNGS: Clear breath sounds bilaterally. No wheezes chest tube HEART: Regular rate and rhythm. Normal S1 and S2, without murmurs ABD: Abdomen soft, nontender. Bowel sounds present EXT: No clubbing cyanosis or edema NEURO: Moving all extremities, no unilateral weakness Vital Signs (last 8hr) Date Time Temp Pulse Resp B/P (MAP) Pulse Ox O2 Delivery O2 Flow Rate FiO2 04/25/24 11:13 98.6 85 20 112/66 98 Room Air 04/25/24 07:41 98.6 86 20 111/54 95 Nasal Cannula 2.0 04/25/24 07:00 95 Nasal Cannula* 2 28 LABS: Hematology Labs: Test 04/25/24 07:21 04/24/24 16:38 Range/Units White Blood Count 6.0 # 4.8-10.8 K/uL Red Blood Count 3.10 L 4.50-6.20 MIL/uL Hemoglobin 9.6 L 14.0-18.0 g/dL Hematocrit 29.7 #L 42-54 % Mean Corpuscular Volume 95.8 79-99 fL Mean Corpuscular Hemoglobin 31.0 27.0-33.0 pg Mean Corpuscular Hemoglobin Concent 32.3 32.0-36.0 g/dL Red Cell Distribution Width 14.0 11.0-15.5 % Platelet Count 214 # 130-400 K/uL Mean Platelet Volume 9.1 7.5-10.5 fL Nucleated Red Blood Cells 0.3 H 0.0-0.19 % Immature Granulocyte % (Auto) 0.7 0-1 % Neutrophils (%) (Auto) 61.7 40.0-77.0 % Lymphocytes (%) (Auto) 25.2 21.0-51.0 % Monocytes (%) (Auto) 10.4 3.0-13.0 % Eosinophils (%) (Auto) 1.8 0.0-8.0 % Basophils (%) (Auto) 0.2 0.0-5.0 % Neutrophils # (Auto) 2.7 1.8-7.7 K/uL Lymphocytes # (Auto) 1.1 1.0-4.8 K/uL Monocytes # (Auto) 0.5 0.1-1.0 K/uL Eosinophils # (Auto) 0.08 0.00-0.70 K/uL Basophils # (Auto) 0.01 0.00-0.20 K/uL Absolute Immature Granulocyte (auto 0.03 0-1 K/uL Chemistry Labs: Test 04/25/24 11:01 04/25/24 03:40 04/24/24 08:00 Range/Units Whole Blood Glucose 178 #H 70-110 MG/DL Sodium Level 142 136-145 mmol/L Potassium Level 3.9 3.5-5.1 mmol/L Chloride Level 108 101-111 mmol/L Carbon Dioxide Level 32 21-32 mmol/L Blood Urea Nitrogen 11 7-18 mg/dL Creatinine 0.8 0.5-1.3 mg/dL Glomerular Filtration Rate Calc 108 >90 mL/min Random Glucose 100 70-105 mg/dL Total Calcium 8.1 L 8.5-10.1 mg/dL Magnesium Level 2.10 1.80-2.40 mg/dL Total Bilirubin 0.6 0.2-1.0 mg/dL Aspartate Amino Transf (AST/SGOT) 19 10-37 U/L Alanine Aminotransferase (ALT/SGPT) 50 12-78 U/L Alkaline Phosphatase 82 50-136 U/L Total Protein 5.2 L 6.0-8.3 g/dL Albumin 2.2 L 3.5-5.0 g/dL Iron Level 28 L 65-175 mcg/dL Total Iron Binding Capacity 136 L 250-450 mcg/dL Percent Iron Saturation 20.5 L 30-44 % DIAGNOSTICS / RADIOLOGY RESULTS: na PLAN Continue to monitor hemoglobin and transfuse1 unit PRBCs for hemoglobin less than seven Continue Venofer IV daily x3 days Continue actively titrate FiO2 as tolerated Rest of the care per primary team NEURO: Minimize central acting medications as possible. Maintain fall precautions, adequate lighting during the day PULMONARY: Supplemental 02 as needed. Maintain aspiration precautions at all times CARDIOVASCULAR: Follow hemodynamics. Vital signs per facility protocol GI & NUTRITION: Continue with nutritional support. Continue stool softeners and laxatives as needed. KIDNEYS & ELECTROLYTES: Strict monitoring of intake, output and overall fluid balance. Avoid nephrotoxic medications to the extent possible. Medications to be dosed according to renal function. Monitor electrolytes and replace as needed ENDOCRINE: Maintain blood glucose between 100-180 at all times. Hypoglycemia protocol in place INFECTIOUS DISEASE: Trend temperature, WBC and procalcitonin level Follow cultures, deescalate antibiotics as soon as possible. Panculture if new onset fever ONCOLOGY/HEMATOLOGY/COAGULATION: Monitor for s/s of bleeding Monitor hemoglobin, coagulation studies as needed SKIN: Pressure ulcer prevention per facility protocol Specialty mattress ORTHO/REHAB: Continue PT/OT Prophylaxis: Continue GI and DVT prophylaxis Code Status: Full Resuscitation Disposition: Per primary team Other: Case discussed with supervising physician plan of care agreed upon GER CRYSTAL Apr 25, 2024 14:04
[2024-04-25 15:29] LABS: HEMATOCRIT 25.2 % (42-54); MEAN CORPUSCULAR HEMOGLOBIN 30.7 pg (27.0-33.0); MEAN CORPUSCULAR HGB CONC 32.5 g/dL (32.0-36.0); MEAN CORPUSCULAR VOLUME 94.4 fL (79-99); RED BLOOD CELL COUNT(AUTO) 2.67 MIL/uL (4.50-6.20); RED CELL DISTRIBUTION WIDTH 13.7 % (11.0-15.5); WHITE BLOOD COUNT (AUTO) 4.3 K/uL (4.8-10.8)
[2024-04-25] MEDS: [UNRECOGNIZED DRUG - OTHER] IV ONE (17:25)
--- NOTE | 2024-04-25 18:43 | PN ---
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 OBJECTIVE: GENERAL: Awake, alert, afebrile. NEUROLOGIC: Intact. VITAL SIGNS: Stable as recorded in medical record. CHEST: Sternum is stable. Incision sealed. LUNGS: Clear. EXTREMITIES: Warm, well perfused. No evidence of DVT, hematoma or infection. ASSESSMENT: Status post coronary artery bypass graft. PROBLEMS: * Coronary artery disease, on aspirin 81 mg and metoprolol 25 mg twice a day. * Anemia, status post surgical procedure, transfuse 1 unit of packed cells. Hemoglobin today is 8. Initiate vitamins and iron. * Dyslipidemia. Lipitor 40 mg once a day. * Fluid overload. Lasix 20 mg once a day. * Disposition: OT, PT, cardiac rehab. PLAN: Discharge today or tomorrow. TID: [id number] RECEIPT: [id number]
--- NOTE | 2024-04-25 22:16 | PN ---
DATE OF SERVICE: 04/25/2024. INFECTIOUS DISEASE FOLLOWUP NOTE SUBJECTIVE: The patient is seen and examined at bedside today. The patient has no fever, no chills. No nausea or vomiting. No bleeding tendency. Appetite is good. No chest pain, no palpitation, no orthopnea. No dysuria or hematuria. No slurred speech or limb weakness. The patient is tolerating antibiotic. No depression. No suicidal ideation. PHYSICAL EXAMINATION:. VITAL SIGNS: Temperature 99.0. EYES: No icterus. Pupils equal and reactive. HENT: No oral thrush seen. Moist oral mucosa. NECK: Supple, no JVD or thyromegaly. LUNGS: Good air entry. No rales, no rhonchi. CARDIOVASCULAR: S1, S2 regular. No murmur heard. ABDOMEN: Obese, soft, and nontender. Bowel sounds present. CENTRAL NERVOUS SYSTEM: Awake, alert, and oriented x 3. No focal deficits. SKIN: No rashes, no itchiness. LYMPHATIC: No peripheral lymphadenopathy. BACK: No deformity, no pressure ulcer. GENITOURINARY: [place] catheter in place. No hematuria. ASSESSMENT: A 49-year-old male originally admitted with chest pain. CURRENT PROBLEMS: Include: * ____. * Anemia. * Inferior wall ST-elevation myocardial infarction. * Multivessel coronary artery disease, status post coronary artery bypass graft. * Diabetes mellitus. * Obesity. * Hypertension. * Urinary retention, status post catheter placement. PLAN: * Continue Zosyn. * Continue antidiabetic. * Continue antiplatelet. * Continue pain management. * Continue DVT prophylaxis. * Monitor electrolytes. * Continue nutritional support. * The patient will follow up closely. TID: [id number] RECEIPT: [id number]
[2024-04-25 23:18] LABS: MEAN CORPUSCULAR HEMOGLOBIN 30.8 pg (27.0-33.0); MEAN CORPUSCULAR HGB CONC 32.4 g/dL (32.0-36.0); MEAN CORPUSCULAR VOLUME 95.1 fL (79-99); NUCLEATED RED BLOOD CELLS 0.5 % (0.0-0.19); RED BLOOD CELL COUNT(AUTO) 2.63 MIL/uL (4.50-6.20); RED CELL DISTRIBUTION WIDTH 13.6 % (11.0-15.5); WHITE BLOOD COUNT (AUTO) 4.2 K/uL (4.8-10.8)
[2024-04-26] MEDS: MAGNESIUM HYDROXIDE 30 ML/UDCUP PO PRN (02:25)
[2024-04-26 04:46] LABS: HEMATOCRIT 24.9 % (42-54); MEAN CORPUSCULAR HEMOGLOBIN 31.1 pg (27.0-33.0); MEAN CORPUSCULAR HGB CONC 32.9 g/dL (32.0-36.0); MEAN CORPUSCULAR VOLUME 94.3 fL (79-99); NUCLEATED RED BLOOD CELLS 0.5 % (0.0-0.19); RED BLOOD CELL COUNT(AUTO) 2.64 MIL/uL (4.50-6.20); RED CELL DISTRIBUTION WIDTH 13.6 % (11.0-15.5); WHITE BLOOD COUNT (AUTO) 4.3 K/uL (4.8-10.8)
[2024-04-26 05:29] LABS: ALBUMIN 2.2 g/dL (3.5-5.0); BILIRUBIN,TOTAL 0.5 mg/dL (0.2-1.0); MAGNESIUM 2.1 mg/dL (1.80-2.40); POTASSIUM 3.7 mmol/L (3.5-5.1); TOTAL PROTEIN, SERUM 5.3 g/dL (6.0-8.3)
[2024-04-26 06:18] VITALS: BP 130/70; PULSE 70; RESP 18; TEMP 98.4
[2024-04-26 07:00] VITALS: O2SAT 94
[2024-04-26 07:27] VITALS: BP 102/57; PULSE 74; RESP 20; TEMP 98.6
--- NOTE | 2024-04-26 08:17 | PN ---
[facility] PROGRESS NOTE Date of Service: Apr 26, 2024 Time of Service: 08:17 SUBJECTIVE: 04/17 patient seen at bedside, no acute events overnight. Patient has been evaluated by Cardiology and a coronary CTA was performed, they are recommending cardio vascular surgery recommendations. He is likely to be taken do surgery tomorrow, we will follow up with CV surgery. Vitals and labs are relatively unremarkable. 04/18 patient seen at bedside, no acute events overnight. Pending CABG with CV surgery today, we will follow up postprocedure. Vitals and labs are relatively unremarkable. 04/19 patient seen at bedside, no acute events overnight. CABG rescheduled for Saturday. Vitals and labs are relatively unremarkable. 04/20 patient is seen and examined today during my rounding, he is now in the ICU, intubated, mechanical ventilation, status post CABG by Cardiothoracic surgeon today. Tolerated procedure well. at bedside, updated. 04/21 the patient has been seen and examined during my rounding, the patient is successfully extubated, on supplemental oxygen via nasal cannula saturating 98%, hemodynamically stable, BP 104/54, afebrile. He is tolerating clear liquid, denied chest pain, no shortness a breath, no nausea, no vomiting. Currently the patient on low-dose epinephrine, low-dose Levophed, on insulin drip. Chest tube in place. 04/23 the patient has been seen and examined during my rounding today, comfortably in bed, spiking low-grade fever, per my discussion with the patient and the was at the bedside, he is having mild cough, per the he is on mildly congested, he denied chest pain, no shortness a breath, nausea, no vomiting, no abdominal pain, no diarrhea, no dysuria. 04/24 the patient has been seen and examined earlier this morning during my rounding, downgraded from the ICU to the PCU, he remains hemodynamically stable, still with low-grade temperature, alert oriented x3, hemoglobin dropped to 6.8, he is getting 1 unit of PRBC during my visit. He denies chest pain, no shortness a breath, no cough, no nausea, no vomiting, no abdominal pain, no diarrhea, no constipation, no melena, no hematochezia, no hematemesis, no hematuria. 04/25 the patient has been seen and examined earlier this morning during my rounding, comfortable sitting in the stretcher, tolerating diet, on supplemental oxygen via nasal at 2 L, saturating 98%, he remains alert oriented x3, hemodynamically stable, he denies dizziness, no headache, no blurry vision, no chest pain, no shortness a breath, no cough, no nausea, no vomiting, no abd ominal discomfort. Temperature last night 100.0. at bedside during my visit. 04/26 patient is seen and examined today, hemodynamically stable, afebrile, alert oriented x3, no chest pain, no shortness a breath, no nausea, no vomiting. REVIEW OF SYSTEMS 12 point review of systems negative unless noted in HPI PHYSICAL EXAM GENERAL APPEARANCE: Patient is intubated, on mechanical ventilation. NEUROLOGICAL: Cranial nerves II-XII grossly intact. Motor is 5/5 in bilateral upper and lower extremities proximal to distal. No sensory deficits. HEENT: Face is symmetric. Pupils are equal and reactive. Extraocular movements are intact. NECK: Supple. No JVD. No thyromegaly. No submental, submandibular, pre- /postauricular, occipital or supraclavicular lymphadenopathy. CHEST: Normal chest expansion. No Telemetry. LUNGS: Absence of any rales, rhonchi or any wheezing. CARDIOVASCULAR: Regular. S1 and S2 normal. No appreciable rubs, murmurs or gallops. ABDOMEN: Soft, nontender, and nondistended. There is no rebound, voluntary guarding, or rigidity. : Deferred. No [place]. EXTREMITIES: Non-edematous and not cyanotic. No clubbing. Good capillary refill. SKIN: No skin breakdown. Vital Signs (last 8hr) Date Time Temp Pulse Resp B/P (MAP) Pulse Ox O2 Delivery O2 Flow Rate FiO2 04/26/24 07:27 98.6 74 20 102/57 97 Room Air 04/26/24 07:00 94 Room Air* 0 21 04/26/24 06:18 98.4 70 18 130/70 95 LABS: Laboratory: Test 04/26/24 05:09 04/26/24 04:27 04/24/24 16:38 Range/Units Whole Blood Glucose 108 70-110 MG/DL White Blood Count 4.3 L 4.8-10.8 K/uL Red Blood Count 2.64 L 4.50-6.20 MIL/uL Hemoglobin 8.2 L 14.0-18.0 g/dL Hematocrit 24.9 L 42-54 % Mean Corpuscular Volume 94.3 79-99 fL Mean Corpuscular Hemoglobin 31.1 27.0-33.0 pg Mean Corpuscular Hemoglobin Concent 32.9 32.0-36.0 g/dL Red Cell Distribution Width 13.6 11.0-15.5 % Platelet Count 189 130-400 K/uL Mean Platelet Volume 9.8 7.5-10.5 fL Nucleated Red Blood Cells 0.5 H 0.0-0.19 % Sodium Level 143 136-145 mmol/L Potassium Level 3.7 3.5-5.1 mmol/L Chloride Level 108 101-111 mmol/L Carbon Dioxide Level 29 21-32 mmol/L Blood Urea Nitrogen 15 7-18 mg/dL Creatinine 1.0 0.5-1.3 mg/dL Glomerular Filtration Rate Calc 92 >90 mL/min Random Glucose 116 H 70-105 mg/dL Total Calcium 8.1 L 8.5-10.1 mg/dL Magnesium Level 2.10 1.80-2.40 mg/dL Total Bilirubin 0.5 0.2-1.0 mg/dL Aspartate Amino Transf (AST/SGOT) 23 10-37 U/L Alanine Aminotransferase (ALT/SGPT) 54 12-78 U/L Alkaline Phosphatase 85 50-136 U/L Total Protein 5.3 L 6.0-8.3 g/dL Albumin 2.2 L 3.5-5.0 g/dL Immature Granulocyte % (Auto) 0.7 0-1 % Neutrophils (%) (Auto) 61.7 40.0-77.0 % Lymphocytes (%) (Auto) 25.2 21.0-51.0 % Monocytes (%) (Auto) 10.4 3.0-13.0 % Eosinophils (%) (Auto) 1.8 0.0-8.0 % Basophils (%) (Auto) 0.2 0.0-5.0 % Neutrophils # (Auto) 2.7 1.8-7.7 K/uL Lymphocytes # (Auto) 1.1 1.0-4.8 K/uL Monocytes # (Auto) 0.5 0.1-1.0 K/uL Eosinophils # (Auto) 0.08 0.00-0.70 K/uL Basophils # (Auto) 0.01 0.00-0.20 K/uL Absolute Immature Granulocyte (auto 0.03 0-1 K/uL Current Medications Medications (Trade) Dose Ordered Sig/Wes Route PRN Reason Start Time Stop Time Status Last Admin Dose Admin Acetaminophen (TYLenol 325MG TAB) 650 mg Q4H PRN PO Temp >38.3C(AFTER EXTUBATION) 04/20/24 10:00 05/20/24 09:59 Acetaminophen (TYLenol 325MG TAB) 650 mg Q6H PRN PO MILD PAIN (1-3) 04/17/24 22:00 05/17/24 21:59 04/26/24 02:26 650 MG Acetaminophen (TYLenol 650MG SUPPOSITORY) 650 mg Q4H PRN RC Temp >38.3C WHILE INTUBATED 04/20/24 10:00 05/20/24 09:59 Acetaminophen (acetaMINOPHEN) 1,000 mg Q6H6 IV 04/20/24 13:00 04/21/24 12:59 DC 04/21/24 11:38 1,000 MG Albumin Human 250 ml @ 0 mls/hr AD PRN IV IF HEMODYNAMICALLY UNSTABLE 04/20/24 10:00 04/21/24 08:04 DC 04/21/24 08:04 100 MLS/HR Aminocaproic Acid 60124 mg/Sodium Chloride 310 ml @ 25 mls/hr AD IV 04/20/24 10:00 04/20/24 10:42 DC Aminocaproic Acid 38798 mg/Sodium Chloride 480 ml @ 0 mls/hr AD PRN IV BLEEDING CONTROL 04/20/24 06:30 05/20/24 06:29 Aspirin (Aspirin 81mg Chew Tab) 81 mg DAILY PO 04/15/24 14:00 05/15/24 13:59 04/25/24 08:52 81 MG Atorvastatin Calcium (LIPItor 40MG) 40 mg HS PO 04/15/24 21:00 05/15/24 20:59 04/25/24 21:17 40 MG Benzocaine (Cepacol Sore Throat Lozenge) 1 each Q4H PRN MM SORE THROAT 04/22/24 17:00 05/22/24 16:59 04/22/24 17:09 1 EACH Calcium Gluconate 1 gm/Sodium Chloride 60 ml @ 200 mls/hr AD PRN IV HYPOCALCEMIA 04/20/24 10:00 05/20/24 09:59 04/21/24 04:13 200 MLS/HR Cefazolin Sodium (Ancef) 2 gm ONCALL PRN IVP SURGERY 04/19/24 14:30 04/20/24 10:55 DC Cefazolin Sodium (Ancef) 2 gm Q8H IVPB 04/20/24 15:00 04/21/24 07:01 DC 04/21/24 06:44 2 GM Clopidogrel Bisulfate (plaVIX 75MG) 75 mg DAILY PO 04/15/24 14:00 04/15/24 18:27 DC 04/15/24 14:15 75 MG Dexmedetomidine/ Sodium Chloride (PRECEdex 400MCG/ 100ML-NS) 400 mcg PROTOCOL IV 04/20/24 10:00 04/21/24 09:59 DC 04/20/24 12:53 400 MCG Dexmedetomidine/ Sodium Chloride (PRECEdex 400MCG/ 100ML-NS) 400 mcg PROTOCOL IV 04/20/24 13:00 04/20/24 14:32 DC Dextrose (D50w) 50 ml AD PRN IV HYPOGLYCEMIA PROTOCOL 04/20/24 10:00 05/20/24 09:59 Docusate Sodium (COLace 100MG CAP) 100 mg BID PO 04/20/24 21:00 05/20/24 20:59 04/25/24 21:16 100 MG Enoxaparin Sodium (Lovenox) 30 mg DAILY SQ 04/23/24 09:00 05/23/24 08:59 04/25/24 08:52 30 MG Epinephrine HCl 10 mg/Sodium Chloride 250 ml @ 12.438 mls/ hr AD PRN IV POST-OP CARDIOVASCULAR ORDERS 04/20/24 10:00 04/25/24 09:59 DC Epinephrine HCl 10 mg/Sodium Chloride 250 ml @ 0 mls/hr AD PRN IV TITRATE 04/20/24 06:30 04/20/24 10:55 DC Famotidine (Pepcid 20mg Vial) 20 mg BID IV 04/20/24 21:00 04/23/24 20:11 DC 04/23/24 09:55 20 MG Famotidine (Pepcid 20mg Tab) 20 mg BID PO 04/15/24 21:00 04/20/24 09:50 DC 04/19/24 20:39 20 MG Famotidine (Pepcid 20mg Tab) 20 mg BID PO 04/23/24 21:00 05/23/24 20:59 04/25/24 21:16 20 MG Furosemide (LASix 20MG TAB) 20 mg Q12H PO 04/22/24 09:00 04/23/24 15:53 DC 04/23/24 10:29 20 MG Furosemide (LASix 20MG VIAL) 20 mg Q12H IV 04/21/24 09:00 04/22/24 08:59 DC 04/21/24 20:17 20 MG Glucagon (Glucagon 1mg Kit) 1 mg AD PRN IM HYPOGLYCEMIA PROTOCOL 04/20/24 10:00 05/20/24 09:59 Heparin Sodium (Porcine) (HEParin 5,000 UNIT VIAL) *calculation based on ACTUAL B... AD PRN IV HEPARIN PROTOCOL 04/15/24 14:00 04/20/24 09:50 DC Heparin Sodium/ Dextrose 250 ml @ 0 mls/hr Q6H IV 04/15/24 14:00 04/20/24 09:50 DC 04/19/24 02:00 10.5 MLS/HR Hydralazine HCl (APRESOLine 20MG INJ) 10 mg Q6H PRN IV ADMINISTER FOR SBP > 160 04/15/24 14:00 04/20/24 09:50 DC Insulin Human Regular (humuLIN R 100 UNIT/ML 3ML) INSULIN SLIDING SCAL... ACHS SQ 04/15/24 16:30 04/20/24 09:50 DC Insulin Human Regular (humuLIN R 100 UNIT/ML 3ML) INSULIN SLIDING SCAL... ACHS SQ 04/22/24 16:30 05/22/24 16:29 04/25/24 12:28 2 UNIT Insulin Human Regular 100 unit/ Sodium Chloride 100 ml @ 0 mls/hr AD IV 04/20/24 10:00 04/22/24 09:59 DC 04/21/24 06:20 3 MLS/HR Iron Sucrose 300 mg/Sodium Chloride 250 ml @ 83 mls/hr DAILY IV 04/25/24 09:00 04/28/24 09:00 04/25/24 08:53 83 MLS/HR Lactulose (Constulose 20gm/ 30ml Udcup) 20 gm BID PRN PO CONSTIPATION 04/20/24 10:00 05/20/24 09:59 04/25/24 03:33 20 GM Magnesium Hydroxide (Milk Of Magnesium 30ml) 30 ml DAILY PRN PO CONSTIPATION 04/20/24 10:00 05/20/24 09:59 04/26/24 02:25 30 ML Magnesium Sulfate 50 ml @ 12.5 mls/hr AD PRN IV MAG LEVEL LESS THAN 2.0 04/20/24 10:00 05/20/24 09:59 04/21/24 01:33 12.5 MLS/HR Magnesium Sulfate 50 ml @ 0 mls/hr PROTOCOL IV 04/15/24 14:00 04/20/24 09:50 DC Metoprolol Tartrate (loprESSOR) 12.5 mg BID PO 04/16/24 21:00 04/20/24 09:50 DC 04/20/24 05:24 12.5 MG Metoprolol Tartrate (loprESSOR) 12.5 mg BID PO 04/22/24 09:00 04/23/24 10:26 DC Metoprolol Tartrate (loprESSOR) 25 mg ONCE STAT PO 04/15/24 12:43 04/15/24 12:46 DC 04/15/24 12:52 25 MG Midodrine (PROAMatine 5 MG TABLET) 10 mg TID PO 04/23/24 10:30 05/23/24 10:29 04/25/24 14:20 10 MG Morphine Sulfate (morPHINE 2MG SYG) 0.5 mg Q2H PRN IV MODERATE PAIN (4-6) 04/20/24 10:00 04/21/24 09:59 DC 04/20/24 12:52 0.5 MG Morphine Sulfate (morPHINE 2MG SYG) 1 mg Q2H PRN IV SEVERE PAIN (7-10) 04/20/24 10:00 04/21/24 09:59 DC Nitroglycerin (Nitrostat) 0.4 mg AD PRN SL CHEST PAIN 04/15/24 22:30 04/20/24 09:50 DC Nitroglycerin/ Dextrose 0 ml @ 0 mls/hr AD IV 04/20/24 10:00 04/23/24 09:59 DC Norepinephrine Bitartrate 250 ml @ 0 mls/hr AD PRN IV TITRATE 04/20/24 06:30 04/20/24 10:55 DC Norepinephrine Bitartrate 250 ml @ 0 mls/hr AD PRN IV POST-OP CARDIOVASCULAR ORDERS 04/20/24 11:00 05/20/24 10:59 04/21/24 11:39 11.3 MLS/HR Norepinephrine Bitartrate 8 mg/ Dextrose 250 ml @ 0 mls/hr AD PRN IV POST-OP CARDIOVASCULAR ORDERS 04/20/24 10:00 04/20/24 10:57 DC Ondansetron HCl (zoFRAN 4MG INJ) 4 mg Q6H PRN IV NAUSEA/VOMITING 04/20/24 10:00 05/20/24 09:59 04/22/24 04:46 4 MG Piperacillin Sod/ Tazobactam Sod (Zosyn 3.375gm+NS 50ml) 3.375 gm Q8H IVPB 04/23/24 10:30 05/03/24 10:29 04/26/24 02:12 3.375 GM Potassium Phosphate 250 ml @ 42 mls/hr AD PRN IV LOW PHOS LEVEL 04/20/24 10:00 04/24/24 10:30 DC Potassium Chloride 100 ml @ 100 mls/hr AD PRN IV POTASSIUM PROTOCOL 04/15/24 14:00 04/20/24 09:50 DC Potassium Chloride 100 ml @ 100 mls/hr AD PRN IV HYPOKALEMIA 04/20/24 10:00 05/20/24 09:59 04/20/24 22:34 100 MLS/HR Potassium Chloride (K-Dur/Klor-Con 20meq) 20 meq AD PRN PO POTASSIUM PROTOCOL 04/15/24 14:00 04/20/24 09:50 DC 04/15/24 14:14 20 MEQ Potassium Chloride (KCl 10% Elixir 20meq/15ml) 20 meq AD PRN PO POTASSIUM PROTOCOL 04/15/24 14:00 04/20/24 09:50 DC Propofol 100 ml @ 0 mls/hr AD PRN IV SEDATION 04/20/24 10:00 04/24/24 09:59 DC Sacubitril/ Valsartan (Entresto 24 Mg-26 Mg Tablet) 1 each BID PO 04/15/24 21:00 04/20/24 09:50 DC 04/19/24 20:39 1 EACH Sodium Bicarbonate (Sodium Bicarb 50meq 50ml Vial) 50 meq AD PRN IV OTHER[SEE DOSING INSTRUCTIONS] 04/20/24 10:00 04/23/24 09:59 DC 04/20/24 15:38 150 MEQ Sodium Chloride 500 ml @ 0 mls/hr AD IV 04/20/24 10:00 05/20/24 09:59 Sodium Chloride 1,000 ml @ 10 mls/hr ONCE IV 04/20/24 10:00 04/21/24 09:59 DC 04/20/24 22:46 10 MLS/HR Sodium Chloride (NS 50ml) 50 ml AD IV 04/23/24 10:30 04/23/24 10:13 DC Sodium Chloride (NS Flush 10ml) 10 ml Q8H PRN IVP IV LINE FLUSH 04/20/24 10:00 05/20/24 09:59 Tramadol HCl (UltRAM) 25 mg Q6H PRN PO MODERATE PAIN (4-6) 04/20/24 10:00 04/25/24 09:59 DC 04/22/24 04:46 25 MG Tramadol HCl (UltRAM) 50 mg Q6H PRN PO SEVERE PAIN (7-10) 04/20/24 10:00 04/25/24 09:59 DC 04/21/24 20:17 50 MG DIAGNOSTICS / RADIOLOGY: [ ] ASSESSMENT: Acute Inferior wall acute STEMI, status post TNKase, 04/13/2024, POA Underlying history of coronary artery disease, POA Family history of premature coronary artery disease, POA Type 2 diabetes mellitus, POA Hypertension, POA Hyperlipidemia, POA PLAN: Patient remains admitted to the intensive care unit Continue telemetry monitoring Status post CABG today, tolerated procedure well Continue to follow Cardiothoracic input and recommendation Cardiology input noted and appreciated Continue supplemental oxygen via nasal cannula Patient is spiking fever, follow results of septic workup Infectious disease consultation requested, follow input and recommendation Electrolytes replacement IV per protocol All labs will be repeated in the morning GI prophylaxis with Pepcid, DVT prophylaxis with heparin Disposition: Discharged home today, please refer to final summary. CARLEY HALL MD Apr 26, 2024 08:17
[2024-04-26] MEDS ORDERED: ASPI-1005 PO (09:20)
[2024-04-26] MEDS ORDERED: DOCU-116 PO (09:20)
[2024-04-26] MEDS ORDERED: NITR0.4T50 SL (09:20)
[2024-04-26] MEDS ORDERED: ATOR40TA69 PO (09:20)
[2024-04-26] MEDS ORDERED: doCUSate SODIUM 100 MG CAP PO (09:20)
[2024-04-26] MEDS ORDERED: CEFD300C3 PO (09:22)
--- NOTE | 2024-04-26 10:01 | PN ---
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 He had an inferior wall STEMI treated with TNK in the emergency department 04/13/2024 and subsequently underwent left heart catheterization 04/14/2024. The right coronary artery could not be engaged. 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 He also had 40-50% proximal LAD stenosis, 50-60% mid LAD stenosis and 50% distal LAD stenosis. He also had known 50-60% stenosis of the PDA seen on left heart catheterization 10/29/2023. He underwent CABG x2 with a MEDRANO to the LAD and saphenous vein graft to the PDA with unroofing of the right coronary artery 04/20/2024. He later developed urinary retention and underwent balloon dilation of anterior urethral strictures 04/20/2024. He has a Richmond catheter which apparently will remain in place until he follows up with urology in the office. He developed severe postop anemia status post transfusion and thrombocytopenia which has resolved. Echocardiogram 04/24/2024 demonstrates an ejection fraction of 50-55%. He is currently in sinus rhythm with heart rates in the 70s. White blood count 4.3, hemoglobin 8.2, hematocrit 24.9, platelets 189, creatinine 1.0, potassium 3.7, magnesium 2.10. He denies chest pain, shortness or breath, dizziness or palpitations. His reports mild swelling to the superior aspect of the midline chest incision. There is no fluctuation or evidence of cellulitis. Assessment: 1. Inferior wall STEMI treated with TNK 04/13/2024. 2. 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 3. Status post CABG x2 with MEDRANO to LAD and saphenous vein graft to PDA with unroofing of RCA. 4. Urinary retention status post dilation of urethral strictures. 5. History of hypertension, hyperlipidemia and type 2 diabetes mellitus. Plan: 1. He is status post CABG x2 with MEDRANO to LAD and saphenous vein graft to PDA with unroofing of the right coronary artery. Continue aspirin 81 mg once daily and atorvastatin 40 mg once daily. 2. Continue midodrine 10 mg 3 times daily for hypotension. 3. The patient has been cleared for discharge from CT surgery. 4. We will schedule a follow-up visit with Dr. Salud Crocker in 2-3 weeks. Vitals/Labs Vital Signs Date Time Temp Pulse Resp B/P (MAP) Pulse Ox O2 Delivery O2 Flow Rate FiO2 04/26/24 07:27 98.6 74 20 102/57 97 Room Air 04/26/24 07:00 0 21 Laboratory Tests 04/25/24 15:23 04/25/24 23:03 04/26/24 04:27 DORON MCGRAW Apr 26, 2024 10:01
--- NOTE | 2024-04-26 10:14 | DS ---
Discharge Summary Hospital Course Summary: The patient initially admitted to the hospital 04/15/2024 with the following history of the present illness: 49-year-old male with history of type 2 diabetes mellitus, hypertension, hyperlipidemia, underlying coronary artery disease who presented as a transfer from [facility]. Patient had initially presented to [facility] with complaints of severe chest pain 8/10 in intensity. In the [facility], patient was found to have STEMI involving the inferior lead. He was given aspirin and TNK in the emergency room. He was subsequently transferred to [facility] for further management of STEMI. Patient underwent cardiac catheterization by Dr. Casanova. Patient denied undergoing angioplasty or stenting during cardiac cath and RCA could not be engaged during the procedure. Patient transferred to [facility] for coronary CT angiogram to further delineate the RCA anatomy. Patient had previously undergone cardiac catheterization in October/2023 where he was found to have high anterior takeoff of the RCA with 30-40 % proximal RCA stenosis and 40-50% distal RCA stenosis and 50-60% stenosis of the PDA. CT angiogram reported as follows: CT CARDIAC ANGIO W/CONT. CCTA REASON: CAD, RCA anomolous takeoff COMPARISON: None TECHNIQUE: Images are obtained through the heart in the axial plane before and during bolus IV contrast infusion, 100 cc Omnipaque 350. 2-D and 3-D multiplanar reconstruction images were then performed. The injection had to be repeated once due to motion artifact on the first sequence, total contrast volume was 200 cc. FINDINGS: This dictation is for the noncardiac findings only. Cardiac and coronary artery findings are reported separately. Visualized portions of the lungs are clear. There is normal-appearing pulmonary interstitium. There is no hilar or mediastinal lymphadenopathy. Chest wall structures appear unremarkable. IMPRESSION: 1. Unremarkable noncardiac portions of CT cardiac angiography. 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 Recommended on jory of the right coronary artery and a bypass to the posterior descending artery with a vein graft. Patient taken to the operating room 04/20/2024, tolerated the procedure well Patient downgraded from the ICU to the PCU, today hemodynamically stable, afebrile, alert oriented x3, no dizziness, no headache, no chest pain, shortness shortness for breath, no nausea, no vomiting, no abdominal discomfort, no diarrhea, no constipation, no melena, no hematochezia, no hematemesis, no hematochezia, no dysuria. Plan for the patient to be discharged home today. Road Inspector(s): Cardiology, Cardiothoracic surgeon Assessment/Plan: Final diagnosis Acute Inferior wall acute STEMI, status post TNKase, 04/13/2024, POA Status post unroofing of right coronary artery and bypass of PDA and LAD 04/20/2024 Underlying history of coronary artery disease, POA Family history of premature coronary artery disease, POA Type 2 diabetes mellitus, POA Hypertension, POA Hyperlipidemia, POA Discharge Instructions: Patient to be discharged home today, to follow up with PCP and Cardiothoracic surgeon Dr. Enciso as an outpatient and to return to the hospital if his cond ition changes. Patient agreed with plan and understood the information provided. Home Medications: Reported Medications Icosapent Ethyl (Vascepa) 1 Gram Capsule, 2 CAP PO BID, #120 CAP 0 Refills 04/16/24 Ergocalciferol (Vitamin D2) (Vitamin D2) 1,250 Mcg (65902 Unit) Capsule, 1250 MCG PO QWEEK, CAP 04/16/24 Aspirin (ASPIRIN 81MG CHEW TAB) 81 Mg Tab.chew, 81 MG PO DAILY, TAB.CHEW 10/25/23 Insulin Glargine,Hum.rec.anlog (Toujeo Solostar) 300 Unit/Ml (1.5 Ml) Insuln.pen, 25 UNIT SQ AM, SYRINGE 10/25/23 Rosuvastatin Calcium (Rosuvastatin Calcium) 40 Mg Tablet, 40 MG PO HS, TAB 10/25/23 Sacubitril/Valsartan (Entresto 24 mg-26 mg Tablet) 24 Mg-26 Mg Tablet, 1 EACH PO BID, TAB 10/25/23 Tirzepatide (Mounjaro) 10 Mg/0.5 Ml Pen.injctr, 10 MG SQ sundays10/25/23 Empagliflozin (Jardiance) 25 Mg Tablet, 25 MG PO AM, TAB 10/25/23 Time spent arranging discharge: 31-60 minutes CARLEY HALL MD Apr 26, 2024 10:14
--- NOTE | 2024-04-26 12:30 | PN ---
[facility] PROGRESS NOTE Date Patient Seen: Apr 26, 2024 Time of Visit: 1052 Supervising Physician: Dr. Mane Primary Care Physician: Dr. Valentin Persaud Outpatient Specialists: NA Inpatient Consults: Dr. Trivedi, Dr. Lincoln PROBLEM LIST: Acute Inferior wall STEMI, status post TNKase, 04/13/2024, POA S/P LHC on 04/15/24 Multivessel CAD S/P CABG x2 MEDRANO to LAD and RSVG to PDA- on 04/[address] Enciso Acute on chronic urinary retention- history of ureteral stricture S/P IR suprapubic catheter placement 04/20 Underlying history of coronary artery disease, POA Family history of premature coronary artery disease, POA Type 2 diabetes mellitus, POA Hypertension, POA Hyperlipidemia, POA History of hypertension, diabetes mellitus, hyperlipidemia, urethroplasty due to ureteral stricture, MO with per cardiac stent INTERVAL HISTORY: 04/21/24-day 1. status post CABG x2. As per RN overnight patient had to get emergently a suprapubic fc per cystoscopy by Dr. Duggan due to history of urinary stricture and urinary retention. weaning off Levophed currently at 7 micr ograms/minute and epinephrine at 0.01 micrograms/kilogram per minute. Patient is calm cooperative awake alert and oriented x3 sitting up on hospital bed. No major complaints other than incisional tenderness with movement and cough. Patient and sinus tachycardia 113 beats per minute, respiratory rate of 20 blood pressure improving 125/61 with a map of 82 we will continue to wean down pressors per CV protocol O2 sat 99% with 2 L via nasal cannula on chest x-ray with increased pulmonary vascular congestion patient was given a dose of Lasix this morning per Cardiology and continues with scheduled doses of Lasix tomorrow morning. On WBCs 12.2 as expected postop H&H of 10.7/32.7 platelet count is normal. Kidneys are doing well with the creatinine of 0.9 GFR of 105 sodium 150 potassium 4.3 chloride 114. Patient is starting clear liquid diet today. 04/22-patient is awake alert and oriented x3 sitting up in recliner chair. No major overnight events. Patient has no complaints other than slight dizziness when transferred to chair. No further dizziness at this time. Weaned down Levophed today at 4 micrograms/minute. Patient has been afebrile with a T-max of 99.1 in the last 24 hours. Blood pressure 117/78, heart rate sinus tachy on the monitor with a heart rate of 107 beats per minute, respiratory rate even and unlabored 18 saturating 98% with 2 L via nasal cannula. Urine output 2.5 L in the last 24 hours chest tube left with 30 mL of output mediastinal chest tube with 50 mL of output since yesterday. Patient has a drop in H&H from 10.7/32.7 to 8.4/ 26.9. H&H was repeated and resulted with 9.1/27.8 platelet count is decreased from yesterday which was [id number] today [id number]. Chest x-ray with decreased pulmonary vascular congestion. 04/23/24- patient is awake alert and oriented x3. He does report a cough that is nonproductive. patient had T-max this morning of 100.4, urine output 1.6 L with a negative balance of 185 mL. Patient with temperature of 100.4 this morning heart rate in the 90s respiratory rate of 20 unlabored blood pressure 106/50 with Levophed at 2 micrograms/minute restarted this morning, saturating 93% with 1 L via. WBCs are normal H&H 8.4/26.5 platelet count is 116787. Improving saline from yesterday. Chemistry unremarkable kidneys are doing well creatinine is 0.9 and GFR of 105 Chest x-ray with slight increase increased pulmonary vascular congestion and right lower base atelectasis. 04/24 patient was seen examined bedside with present patient is awake alert able answer simple questions appropriately at time of visit patient denies chest pain or shortness of breadth. Patient denies nausea vomiting or abdominal pain. Patient currently2 L nasal appears to be tolerating well however patient does not use oxygen we will titrate FiO2 as tolerated patient's hemoglobin this 6.8 is receiving1 unit PRBCs we will repeat patient's labs morning and continue to hemoglobin transfuse one PRBCs for hemoglobin less than seven. We will start patient on Venofer daily x3 days. Continue to monitor closely 04/25 patient was seen and examined by bedside with present. Patient is awake alert answers questions appropriately. Patient's hemoglobin has remained stable post1 unit PRBCs transfused yesterday. Hemoglobin today 9.6. Patient to continue with Venofer x3 days. At time of visit patient has no specific complaints. Denies chest pain or shortness of breadth. Denies nausea vomiting or abdominal pain. Is having bowel movements. Tolerating p.o. diet. Remains hemodynamically stable. As per primary nurse no acute events to be reported 04/26 patient was seen examined by bedside present. Patient's hemoglobin has remained stable. Patient at time of visit has no specific complaints. Has remained hemodynamically stable. Has been cleared by CV surgery for discharge. Patient will be getting discharged today per primary team. From pulmonary standpoint patient is cleared for discharge. As per primary nurse no acute events to be reported at this time REVIEW OF SYSTEMS: 12 point ROS reviewed with patient. Pertinent positives mentioned above. Otherwise negative. PHYSICAL EXAM: GENERAL: Awake alert and oriented x3 HEENT: EOMI, Sclera non icteric, moist mucosa NECK: Supple, no JVD, trachea midline LUNGS: Clear breath sounds bilaterally. No wheezes chest tube HEART: Regular rate and rhythm. Normal S1 and S2, without murmurs ABD: Abdomen soft, nontender. Bowel sounds present EXT: No clubbing cyanosis or edema NEURO: Moving all extremities, no unilateral weakness Vital Signs (last 8hr) Date Time Temp Pulse Resp B/P (MAP) Pulse Ox O2 Delivery O2 Flow Rate FiO2 04/26/24 07:27 98.6 74 20 102/57 97 Room Air 04/26/24 07:00 94 Room Air* 0 21 04/26/24 06:18 98.4 70 18 130/70 95 LABS: Hematology Labs: Test 04/26/24 04:27 04/24/24 16:38 Range/Units White Blood Count 4.3 L 4.8-10.8 K/uL Red Blood Count 2.64 L 4.50-6.20 MIL/uL Hemoglobin 8.2 L 14.0-18.0 g/dL Hematocrit 24.9 L 42-54 % Mean Corpuscular Volume 94.3 79-99 fL Mean Corpuscular Hemoglobin 31.1 27.0-33.0 pg Mean Corpuscular Hemoglobin Concent 32.9 32.0-36.0 g/dL Red Cell Distribution Width 13.6 11.0-15.5 % Platelet Count 189 130-400 K/uL Mean Platelet Volume 9.8 7.5-10.5 fL Nucleated Red Blood Cells 0.5 H 0.0-0.19 % Immature Granulocyte % (Auto) 0.7 0-1 % Neutrophils (%) (Auto) 61.7 40.0-77.0 % Lymphocytes (%) (Auto) 25.2 21.0-51.0 % Monocytes (%) (Auto) 10.4 3.0-13.0 % Eosinophils (%) (Auto) 1.8 0.0-8.0 % Basophils (%) (Auto) 0.2 0.0-5.0 % Neutrophils # (Auto) 2.7 1.8-7.7 K/uL Lymphocytes # (Auto) 1.1 1.0-4.8 K/uL Monocytes # (Auto) 0.5 0.1-1.0 K/uL Eosinophils # (Auto) 0.08 0.00-0.70 K/uL Basophils # (Auto) 0.01 0.00-0.20 K/uL Absolute Immature Granulocyte (auto 0.03 0-1 K/uL Chemistry Labs: Test 04/26/24 05:09 04/26/24 04:27 Range/Units Whole Blood Glucose 108 70-110 MG/DL Sodium Level 143 136-145 mmol/L Potassium Level 3.7 3.5-5.1 mmol/L Chloride Level 108 101-111 mmol/L Carbon Dioxide Level 29 21-32 mmol/L Blood Urea Nitrogen 15 7-18 mg/dL Creatinine 1.0 0.5-1.3 mg/dL Glomerular Filtration Rate Calc 92 >90 mL/min Random Glucose 116 H 70-105 mg/dL Total Calcium 8.1 L 8.5-10.1 mg/dL Magnesium Level 2.10 1.80-2.40 mg/dL Total Bilirubin 0.5 0.2-1.0 mg/dL Aspartate Amino Transf (AST/SGOT) 23 10-37 U/L Alanine Aminotransferase (ALT/SGPT) 54 12-78 U/L Alkaline Phosphatase 85 50-136 U/L Total Protein 5.3 L 6.0-8.3 g/dL Albumin 2.2 L 3.5-5.0 g/dL DIAGNOSTICS / RADIOLOGY RESULTS: na PLAN Continue to monitor hemoglobin and transfuse1 unit PRBCs for hemoglobin less than seven Continue Venofer IV daily x3 days Continue actively titrate FiO2 as tolerated Rest of the care per primary team NEURO: Minimize central acting medications as possible. Maintain fall precautions, adequate lighting during the day PULMONARY: Supplemental 02 as needed. Maintain aspiration precautions at all times CARDIOVASCULAR: Follow hemodynamics. Vital signs per facility protocol GI & NUTRITION: Continue with nutritional support. Continue stool softeners and laxatives as needed. KIDNEYS & ELECTROLYTES: Strict monitoring of intake, output and overall fluid balance. Avoid nephrotoxic medications to the extent possible. Medications to be dosed according to renal function. Monitor electrolytes and replace as needed ENDOCRINE: Maintain blood glucose between 100-180 at all times. Hypoglycemia protocol in place INFECTIOUS DISEASE: Trend temperature, WBC and procalcitonin level Follow cultures, deescalate antibiotics as soon as possible. Panculture if new onset fever ONCOLOGY/HEMATOLOGY/COAGULATION: Monitor for s/s of bleeding Monitor hemoglobin, coagulation studies as needed SKIN: Pressure ulcer prevention per facility protocol Specialty mattress ORTHO/REHAB: Continue PT/OT Prophylaxis: Continue GI and DVT prophylaxis Code Status: Full Resuscitation Disposition: Per primary team Other: Case discussed with supervising physician plan of care agreed upon GER CRYSTAL Apr 26, 2024 12:30
--- NOTE | 2024-04-27 01:48 | PN ---
INFECTIOUS DISEASE FOLLOWUP NOTE DATE OF SERVICE: 04/26/2024 SUBJECTIVE: The patient is seen and examined at bedside today. The patient has no fever, no chills. Cough and shortness of breath resolved. No chest pain. No palpitation or orthopnea. Denied depression. No suicidal ideation. No heat or cold intolerance. No bleeding tendency. No rashes or itchiness. PHYSICAL EXAMINATION: VITAL SIGNS: Temperature 97.2. EYES: No icterus. Pupils equal and reactive. HENT: No oral thrush seen. Moist oral mucosa. NECK: Supple. No JVD or thyromegaly. LUNGS: Good air entry. Few crackles. CARDIOVASCULAR SYSTEM: S1, S2 regular. No murmur heard. ABDOMEN: Obese, soft, nontender. Bowel sounds present. CENTRAL NERVOUS SYSTEM: Awake, alert, oriented x 3. No focal deficits. SKIN: No rashes, no itchiness. LYMPHATIC: No peripheral lymphadenopathy. BACK: No deformity, no pressure ulcer. MUSCULOSKELETAL: No joint swelling, erythema or tenderness. ASSESSMENT: A 49-year-old male originally admitted with chest pain. Current problems include: * Pneumonia. * Inferior wall myocardial infarction. * Coronary artery disease, status post coronary artery bypass graft. * Hypertension. * Diabetes mellitus. * Urinary retention, status post cystoscopy and catheter placement. PLAN: * Continue Zosyn. * Continue antiplatelet. * Continue antidiabetic. * Continue nutritional support. * Continue antihypertensive. * Monitor electrolytes and correct as needed. TID: [id number] RECEIPT: [id number]
--- NOTE | 2024-04-27 02:16 | PN ---
SUBJECTIVE: Status post unroofing of coronary artery and 2-vessel bypass. OBJECTIVE: GENERAL: Awake, alert, in no acute distress. VITAL SIGNS: Stable as recorded in medical record. CHEST: Sternum stable. Incision sealed. LUNGS: Clear. EXTREMITIES: Warm, well perfused. No evidence of DVT, hematoma or infection. 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 PROBLEMS: * Coronary artery disease. Aspirin and beta blockers. * Deep venous thrombosis prophylaxis. Lovenox 30 mg once a day. * Dyslipidemia. Lipitor 40 mg once a day. * Anemia, status post surgical intervention. Transfuse 1 unit of packed cells. No longer syncopal, out of bed, ambulating. PLAN: To discharge today. TID: [id number] RECEIPT: [id number]
== END 2024-04-26 11:20 | disposition home or self-care (01) | DRG 235 ==
LOC: 2DH 11:27 → 2CV 04-20 07:30 → 2BH 04-21 06:30 → 2AH 04-24 00:34
PROVIDERS: ADMIT Student in an Organized Health Care Education/Training Program; ATTEND Student in an Organized Health Care Education/Training Program
PROC: 0T7D8ZZ Dilation of Urethra, Via Natural or Artificial Opening Endoscopic (ICD-10-PCS; 2024-04-20)
PROC: 06BQ4ZZ Excision of Left Saphenous Vein, Percutaneous Endoscopic Approach (ICD-10-PCS; 2024-04-20)
PROC: 5A1221Z Performance of Cardiac Output, Continuous (ICD-10-PCS; 2024-04-20)
PROC: 0T9B80Z Drainage of Bladder with Drainage Device, Via Natural or Artificial Opening Endoscopic (ICD-10-PCS; 2024-04-20)
PROC: 02HV33Z Insertion of Infusion Device into Superior Vena Cava, Percutaneous Approach (ICD-10-PCS; 2024-04-20)
PROC: 021009W Bypass Coronary Artery, One Artery from Aorta with Autologous Venous Tissue, Open Approach (ICD-10-PCS; principal; 2024-04-20 08:33)
PROC: 02N Heart and Great Vessels, Release (ICD-10-PCS; 2024-04-20 08:33)
PROC: 0T7B8ZZ Dilation of Bladder, Via Natural or Artificial Opening Endoscopic (ICD-10-PCS; 2024-04-20 08:33)
PROC: 02100Z9 Bypass Coronary Artery, One Artery from Left Internal Mammary, Open Approach (ICD-10-PCS; 2024-04-20 08:33)
PROC: 30233N1 Transfusion of Nonautologous Red Blood Cells into Peripheral Vein, Percutaneous Approach (ICD-10-PCS; 2024-04-24)
DX: I21.19 ST elevation (STEMI) myocardial infarction involving other coronary artery of inferior wall (principal); J18.9 Pneumonia, unspecified organism; Q24.5 Malformation of coronary vessels; E11.9 Type 2 diabetes mellitus without complications; I25.10 Atherosclerotic heart disease of native coronary artery without angina pectoris; E78.5 Hyperlipidemia, unspecified; I10 Essential (primary) hypertension; I77.1 Stricture of artery; Z82.49 Family history of ischemic heart disease and other diseases of the circulatory system; I95.9 Hypotension, unspecified; R33.9 Retention of urine, unspecified; Z20.822 Contact with and (suspected) exposure to COVID-19; D64.9 Anemia, unspecified; D69.6 Thrombocytopenia, unspecified; N13.5 Crossing vessel and stricture of ureter without hydronephrosis; E66.9 Obesity, unspecified; E87.70 Fluid overload, unspecified; Z79.4 Long term (current) use of insulin; Z79.82 Long term (current) use of aspirin; Z79.899 Other long term (current) drug therapy; Z83.3 Family history of diabetes mellitus; Z95.1 Presence of aortocoronary bypass graft; Z95.5 Presence of coronary angioplasty implant and graft; Z88.1 Allergy status to other antibiotic agents; Z91.040 Latex allergy status; Z88.8 Allergy status to other drugs, medicaments and biological substances; Z88.2 Allergy status to sulfonamides; Z68.20 Body mass index [BMI] 20.0-20.9, adult
CPT/HCPCS: 36415; 36600; 71045; 74430; 75574; 80048; 80053; 80061; 82330; 82435; 82803; 82947; 82948; 83036; 83540; 83550; 83605; 83735; 83880; 84100; 84132; 84145; 84295; 84443; 85014; 85018; 85025; 85027; 85347; 85384; 85610; 85730; 86850; 86880; 86900; 86901; 86923; 87040; 87426; 87641; 87804; 87880; 93005; 93308; 93312; 93325; 93880; 94002; 94010; 94150; A4344; A4354; A4450; A7048; C1758; C1769; G0378; J0171; J0612; J0690; J0696; J1644; J1650; J1756; J1815; J1940; J2003; J2150; J2250; J2270; J2371; J2405; J2440; J2543; J2704; J2720; J3010; J3475; J3480; J3490; J7030; J7040; J7050; P9016; P9045; P9047; Q0161; Q9958; Q9967; A4213; A4216; A4351; A4358; A4649; A4930; A5120; A6204; C1713; C1726; C1776; C1887

== ENCOUNTER → 2024-04-30 | Outpatient (CLI) | payer BC ==
[~2024-04-30] MED LIST changes: +ATOR40TA69 PO; +CEFD300C3 PO; +DOCU-116 PO; +ERGO500093 PO; +NITR0.4T50 SL; -ROSU40TA88 PO; +doCUSate SODIUM 100 MG CAP PO; -mvi PO
[2024-04-30 12:27] LABS: BASOPHILS # (AUTO) 0.02 K/uL (0.00-0.20); BASOPHILS % (AUTO) 0.4 % (0.0-5.0); EOSINOPHILS % (AUTO) 1.8 % (0.0-8.0); HEMATOCRIT 33.8 % (42-54); IMMATURE GRANULOCYTE ABSOLUTE 0.11 K/uL (0-1); LYMPHOCYTES # (AUTO) 1.3 K/uL (1.0-4.8); LYMPHOCYTES % (AUTO) 23.6 % (21.0-51.0); MEAN CORPUSCULAR HEMOGLOBIN 30.9 pg (27.0-33.0); MEAN CORPUSCULAR HGB CONC 30.8 g/dL (32.0-36.0); MEAN CORPUSCULAR VOLUME 100.3 fL (79-99); MONOCYTES # (AUTO) 0.4 K/uL (0.1-1.0); MONOCYTES % (AUTO) 7.9 % (3.0-13.0); NEUTROPHILS # (AUTO) 3.6 K/uL (1.8-7.7); NEUTROPHILS % (AUTO) 64.3 % (40.0-77.0); PLATELET COUNT (AUTO) 432 K/uL (130-400); RED BLOOD CELL COUNT(AUTO) 3.37 MIL/uL (4.50-6.20); RED CELL DISTRIBUTION WIDTH 14.8 % (11.0-15.5); WHITE BLOOD COUNT (AUTO) 5.5 K/uL (4.8-10.8)
[2024-04-30 12:43] LABS: ALBUMIN 3.1 g/dL (3.5-5.0); BILIRUBIN,TOTAL 0.5 mg/dL (0.2-1.0); CREATININE 0.8 mg/dL (0.5-1.3); POTASSIUM 4.5 mmol/L (3.5-5.1); TOTAL PROTEIN, SERUM 6.7 g/dL (6.0-8.3)
== END | disposition home or self-care (01) ==
LOC: LAB 10:09
PROVIDERS: ATTEND Student in an Organized Health Care Education/Training Program
DX: R53.83 Other fatigue (principal)
CPT/HCPCS: 36415; 80053; 83735; 85025